=== PATIENT | female | born 1995 | race Caucasian/White ===

== ENCOUNTER 2022-02-03 15:51 | Observation (INO) | payer BC, SELFPAY ==
[2022-02-03] VITALS (12 sets, daily range): BP systolic 114–136; BP diastolic 52–79; PULSE 46–88; RESP 15–28; TEMP 36.7–36.9; O2SAT 99–100; BMI 22.6
--- NOTE | ~2022-02-03 | US_ITS ---
EXAMINATION: US right upper quadrant DATE: 02/03/2022 16:49 INDICATION: Right upper quadrant abdominal pain. TECHNIQUE: Multiple grayscale and Doppler ultrasound images of the abdomen were obtained. COMPARISON: None FINDINGS: The visualized portions of the head and body of the pancreas are normal. The liver demonstr ates focal steatosis adjacent to ligamentum teres. There is normal flow in main portal vein. The gall bladder is normal in size and filled with gallstones. No gallbladder wall thickening. There is a posi tive sonographic Baez sign. The common duct is normal and measures 3 mm. IMPRESSION: 1. Cholelithiasis and positive sonographic Baez sign, but no gallbladder distention or gallbladder wall thickening. These findings are indeterminate for acute cholecystitis. Consider hepatobiliary sci ntigraphy. Reviewed, dictated and finalized at location [facility] IMPRESSION: 1. Cholelithiasis and positive sonographic Baez sign, but no gallbladder dist ention or gallbladder wall thickening. These findings are indeterminate for acu te cholecystitis. Consider hepatobiliary scintigraphy.
[2022-02-03 17:09] LABS: Appearance Urine Slightly Cloudy (Clear); Bilirubin Urine 1+ (Negative); Blood Urine Trace-lysed (Negative); Color Urine Yellow (Yellow); Glucose Urine UA Negative (Negative); Ketones Urine Trace mg/dL (Negative); Leukocyte Esterase Ur Negative LEU/UL (Negative); Nitrate Urine Negative (Negative); Protein Urine Negative (Negative); Specific Grav Ur >= 1.030 (1.001-1.035); Urobilinogen Urine 0.2 mg/dL (<2.0); pH Urine 5.5 (5.0-9.0)
[2022-02-03 17:15] LABS: Bacteria Urine Trace /hpf; Mucus Urine Few /lpf; Squamous Epithelial Cell Urine Many /hpf (Few); WBC Urine 0-3 /hpf
[2022-02-03 17:15] LABS: Basophils Percent Auto 0.8 % (0.2-1.2); Eosinophils Percent Auto 0.4 % (0-4.4); Hematocrit 39.3 % (37.0-47.0); Hemoglobin 13.3 g/dL (12.0-15.0); Immature Granulocyte Absolute 0.01 K/mm3 (0.00-0.031); Immature Granulocyte Percent A 0.2 % (0-0.5); Lymphocytes Absolute Auto 1.62 K/mm3 (0.9-3.2); Mean Corpuscular HGB Conc 33.8 g/dl (32-36); Mean Corpuscular Hemoglobin 28.5 pg (26-34); Mean Corpuscular Volume 84.3 fl (80-100); Mean Platelet Volume 11.5 fl (7.4-10.4); Monocytes Absolute Auto 0.5 K/mm3 (0.1-0.6); Monocytes Percent Auto 9.2 % (2.6-8.5); Neutrophils Absolute Auto 3.1 K/mm3 (1.3-6.7); Neutrophils Percent Auto 58.4 % (45.5-73.1); Platelet Count Result 203 k/mm3 (150-375); Red Blood Count 4.66 M/mm3 (4.2-5.4); Red Cell Distribution Width 12.6 % (11.5-14.5); White Blood Count 5.2 K/mm3 (4.5-10.0)
[2022-02-03 17:26] LABS: Alanine Aminotransferase 13 U/L (6-35); Albumin Level 4.6 g/dL (3.5-5.1); Alkaline Phosphatase 39 U/L (38-126); Anion Gap 11 mmol/L (8-16); Aspartate Amino Transferase 19 U/L (14-36); Bilirubin,Total 0.7 mg/dL (0.2-1.3); Blood Urea Nitrogen 7 mg/dL (7-17); Calcium 9.3 mg/dL (8.4-10.2); Carbon Dioxide 25 mmol/L (22-30); Chloride 103 mmol/L (98-107); Estimated CRCL calculation 93 ml/min; Estimated Glomerular Filt Rate > 60; Glucose 97 mg/dL (65-110); Lipase 37 U/L (23-300); Potassium 3.5 mmol/L (3.4-5.0); Sodium 139 mmol/L (137-145)
[2022-02-03] MEDS: ONDANSETRON INJ 4 MG/2 ML VIAL IV PUSH ×2 (17:41→22:17)
[2022-02-03 17:42] LABS: Add Urine Microscopic? YES
--- NOTE | 2022-02-03 18:18 | ED.NAVMDI ---
HPI - Nausea/Vomiting/Diarrhea General Chief complaint: Nausea/Vomiting/Diarrhea Stated complaint: epigastric pain, nausea Time Seen by Provider: 02/03/22 16:14 History of Present Illness HPI Narrative: Patient is a 26-year-old female who presents ER with epigastric right upper quadrant pain. Reports has been having this intermittently for the last year. More severe over the last day. Associated with sweats and nausea and vomiting. She will occasionally have diarrhea but that is. Radiates from the epigastrium out bilaterally. No fevers or chills or sweats. Originally diagnosed with IBS. Patient used to be on chronic opiate therapy for chronic pain chest chronic regional pain syndrome in her left lower extremity and has a spinal cord stimulator. Unsure if symptoms are associate with eating or drinking. Related Data Allergies Allergy/AdvReac Type Severity Reaction Status Date / Time oxcarbazepine Allergy Unresponsiv Verified 02/03/22 16:03 e Review of Systems Review of Systems: All systems reviewed & are unremarkable except as noted in HPI and below Constitutional: Constitutional: Denies chills, Denies fatigue and Denies fever(s) Cardiovascular: Cardiovascular: Denies chest pain, Denies rapid heart rate and Denies radiating jaw, neck or arm pain Respiratory: Respiratory: Denies cough and Denies dyspnea Gastrointestinal: Gastrointestinal: Reports abdominal pain, Denies constipation, Reports nausea and Reports vomiting Genitourinary: Genitourinary: Denies nocturia and Denies dysuria PMFSH Past Medical History Medical History (Updated 02/03/22 @ 19:37 by Trina Jiang NP) Anxiety CRPS (complex regional pain syndrome type I) Depression Injury of nerve during surgery POTS (postural orthostatic tachycardia syndrome) Tendonitis Surgical History Surgical History (Updated 02/03/22 @ 19:37 by Trina Jiang NP) History of ankle surgery x 2 History of appendectomy Hx of wisdom tooth extraction S/P insertion of spinal cord stimulator Family History Family History (Updated 02/03/22 @ 19:38 by Trina Jiang NP) Mother Seizure Bipolar 1 disorder Father Hypertension Sibling Depression Social History Social History (Updated 02/03/22 @ 19:39 by Trina Jiang NP) Social History: [employer] student Exam Narrative: GENERAL: Uncomfortable-appearing, well-nourished, and in no acute distress. HEAD: Normocephalic, atraumatic. EYES: PERRL and EOMI. ENT: Mucous membranes moist. CHEST: Clear to auscultation. No respiratory distress. HEART: Regular rate and rhythm. Normal peripheral pulses. ABDOMEN: Soft, tender palpation epigastrium right upper quadrant with positive Baez sign, nondistended, normal active bowel sounds. EXTREMITIES: Normal range of motion. No edema. SKIN: Warm, dry, no rash. NEURO: Alert and oriented x3. PSYCH: Normal mood and affect. Course Course Emergency Course: Persistent pain. Likely needs HIDA scan given ultrasound results. Admit for observation to hospital service. Vital Signs Vital signs: Vital Signs Temperature 98.1 F 02/03/22 16:01 Pulse Rate 88 02/03/22 16:01 Respiratory Rate 16 02/03/22 16:01 Blood Pressure 136/79 02/03/22 16:01 Pulse Oximetry 99 02/03/22 16:01 Temperature 98.4 F 02/03/22 19:23 Pulse Rate 61 02/03/22 20:39 Respiratory Rate 15 02/03/22 20:39 Blood Pressure 118/69 02/03/22 20:39 Pulse Oximetry 100 02/03/22 20:39 MDM - Nausea/Vomiting/Diarrhea Lab Data Result diagrams: 02/03/22 17:01 02/03/22 17:01 Labs: Lab Results 02/03/22 02/03/22 02/03/22 Range/Units 16:30 16:30 17:01 WBC 5.2 (4.5-10.0) K/mm3 RBC 4.66 (4.2-5.4) M/mm3 Hgb 13.3 (12.0-15.0) g/dL Hct 39.3 (37.0-47.0) % MCV 84.3 (80-100) fl MCH 28.5 (26-34) pg MCHC 33.8 (32-36) g/dl RDW 12.6 (11.5-14.5) % Plt Count 203 (150-375) k/mm3 MPV 11
[2022-02-03 19:00] LABS: SARS-CoV-2 RNA PCR Negative
[2022-02-03 19:22] LABS: Pregnancy On Board Control Positive; Urine Pregnancy Test Negative
--- NOTE | 2022-02-03 19:22 | PC.NURSE ---
Patient report given to NATHAN Petit. All questions answered and care of patient transferred.
[2022-02-03] MEDS: SODIUM CHLORIDE 0.9% IV 1,000 ML 125 ML IV CONT (19:23)
--- NOTE | 2022-02-03 19:31 | PM.IMHP ---
H&P: HPI History of Present Illness Date/Time: 02/03/22 19:31 Chief Complaint: Nausea vomiting diarrhea Narrative: This is a 26-year-old female patient who has been having problems with her abdomen for the last couple months. The patient stated that she has had scopes and lots of test even cardiac test and have not found anything. The patient came to the emergency room today with complaints of epigastric right upper quadrant pain the patient stated that it starts in the upper epigastric area and goes to her back and radiates to her shoulder. The patient stated that it is so severe that it makes her pass out at times. The patient has no fever chills. Patient was originally diagnosed with irritable bowel syndrome and was placed on Bentyl. The Bentyl seem to work a somewhat. The patient stated that she does not think that her symptoms are associated with eating or drinking. The patient was given Zofran in the emergency room, morphine, IV Tylenol, Toradol, and Bentyl without any relief. However the patient was seeing she did not want any narcotics. Upper quadrant ultrasound was read as the following1. Cholelithiasis and positive sonographic Baez sign, but no gallbladder distention or gallbladder wall thickening. These findings are indeterminate for acute cholecystitis. Consider hepatobiliary scintigraphy. Surgery has been consulted. The patient is being admitted to observation on the date of service of 02/03/2022. Review of Systems Review of Systems: See HPI All systems reviewed & are unremarkable except as noted in HPI and below Constitutional: Constitutional: Reports as per HPI and Reports no additional constitutional complaints Eyes: Eyes: Reports as per HPI and Reports no additional eye complaints ENT: Reports system reviewed and no additional complaints, except as documented and Reports Normal hearing present Cardiovascular: Cardiovascular: Reports no additional cardiovascular complaints Respiratory: Respiratory: Reports no additional respiratory complaints and Reports no additional respiratory complaints Gastrointestinal: Gastrointestinal: Reports as per HPI and Reports no additional gastrointestinal complaints Musculoskeletal: Musculoskeletal: Reports no additional musculoskeletal complaints Integumentary/Breasts: Skin/Breast: Reports system reviewed and no additional complaints, except as docu and Reports as per HPI Neurologic: Reports system reviewed and no additional complaints, except as documented, Reports as per HPI and Reports Normal hearing present Psychiatric: Psychiatric: Reports no additional psychiatric complaints and Reports as per HPI Endocrine: Endocrine: Reports no additional endocrine complaints Hematologic/Lymphatic: Hematologic/Lymphatic: Reports no additional hematologic/lymphatic complaints Allergic/Immunologic: Allergic/Immunologic: Reports no additional allergic/immunologic complaints PMFSH Past Medical History Medical History Anxiety CRPS (complex regional pain syndrome type I) Depression Injury of nerve during surgery POTS (postural orthostatic tachycardia syndrome) Tendonitis Surgical History Surgical History History of ankle surgery x 2 History of appendectomy Hx of wisdom tooth extraction S/P insertion of spinal cord stimulator Family History Family History Mother Seizure Bipolar 1 disorder Father Hypertension Sibling Depression Social History Social History (Updated 02/03/22 @ 21:50 by Trina Jiang NP) Social History: The patient lives with her fiance. 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 She denies any alcohol marijuana or illicit drugs. She does not have a durable power banking attorney for healthcare. She has no children. Code status full code
[2022-02-03] MEDS: DICYCLOMINE HCL INJ 20 MG/2 ML VIAL IM (19:47)
[2022-02-03] MEDS: KETOROLAC 30 MG/ML VIAL (*BKC) IV PUSH (19:47)
[2022-02-03] MEDS: LORazepam (*CRX) 0.5 MG TABLET PO (23:55)
[2022-02-04] VITALS (12 sets, daily range): BP systolic 95–131; BP diastolic 36–77; PULSE 54–93; RESP 12–20; TEMP 36.4–36.9; O2SAT 100; BMI 22.6
[2022-02-04 02:26] LABS: Pregnancy On Board Control Positive; Urine Pregnancy Test Negative
[2022-02-04 05:51] LABS: Lactic Acid Reflex 0.7 mmol/L (0.7-2.0)
[2022-02-04 05:56] LABS: Alanine Aminotransferase 11 U/L (6-35); Alkaline Phosphatase 32 U/L (38-126); Anion Gap 8 mmol/L (8-16); Aspartate Amino Transferase 15 U/L (14-36); Bilirubin,Total 0.8 mg/dL (0.2-1.3); Blood Urea Nitrogen 8 mg/dL (7-17); Calcium 8.1 mg/dL (8.4-10.2); Carbon Dioxide 24 mmol/L (22-30); Chloride 106 mmol/L (98-107); Estimated CRCL calculation 82 ml/min; Estimated Glomerular Filt Rate > 60; Glucose 92 mg/dL (65-110); Lipase 62 U/L (23-300); Magnesium 2.1 mg/dL (1.6-2.3); Potassium 3.5 mmol/L (3.4-5.0); Sodium 138 mmol/L (137-145)
[2022-02-04 06:19] LABS: Basophils Absolute Auto 0.1 K/mm3 (0.0-0.1); Basophils Percent Auto 1.1 % (0.2-1.2); Eosinophils Percent Auto 0.7 % (0-4.4); Hematocrit 36.3 % (37.0-47.0); Immature Granulocyte Absolute 0.01 K/mm3 (0.00-0.031); Immature Granulocyte Percent A 0.2 % (0-0.5); Lymphocytes Absolute Auto 1.94 K/mm3 (0.9-3.2); Lymphocytes Percent Auto 43.4 % (18.3-44.2); Mean Corpuscular HGB Conc 33.1 g/dl (32-36); Mean Corpuscular Hemoglobin 28.6 pg (26-34); Mean Corpuscular Volume 86.6 fl (80-100); Monocytes Absolute Auto 0.5 K/mm3 (0.1-0.6); Monocytes Percent Auto 10.3 % (2.6-8.5); Neutrophils Percent Auto 44.3 % (45.5-73.1); Platelet Count Result 174 k/mm3 (150-375); Red Blood Count 4.19 M/mm3 (4.2-5.4); Red Cell Distribution Width 12.5 % (11.5-14.5); White Blood Count 4.5 K/mm3 (4.5-10.0)
[2022-02-04] MEDS: SODIUM CHLORIDE 0.9% IV 1,000 ML 125 ML IV CONT (06:53)
[2022-02-04] MEDS: ONDANSETRON INJ 4 MG/2 ML VIAL IV PUSH ×2 (06:53→16:06)
[2022-02-04] MEDS: KETOROLAC 30 MG/ML VIAL (*BKC) IV PUSH (09:32)
[2022-02-04] MEDS: PANTOPRAZOLE SODIUM IV 40 MG VIAL IV PUSH (09:32)
[2022-02-04] MEDS: LORazepam (*CRX) 0.5 MG TABLET PO ×2 (09:34→17:55)
--- NOTE | 2022-02-04 10:15 | PM.IMPN ---
Progress Note: A&P Assessment and Plan (1) Cholelithiasis: Code(s): K80.20 - Calculus of gallbladder without cholecystitis without obstruction Status: Acute Assessment and Plan: -surgery has been consulted. -continue with IV fluids. -HIDA scan has been ordered. -the patient stated that she does not want any narcotics. -I have tried Bentyl and Toradol without any affect. She has also had IV Tylenol. -the patient was asking for muscle relaxer however she is allergic to oxcarbamazepine. -liver enzymes are not elevated. Ultrasound of the abdomen shows the following. Cholelithiasis and positive sonographic Baez sign, but no gallbladder distention or gallbladder wall thickening. These findings are indeterminate for acute cholecystitis. Consider hepatobiliary scintigraphy. (2) Anxiety: Code(s): F41.9 - Anxiety disorder, unspecified Status: Acute Assessment and Plan: -p.r.n. Ativan or we may change it to hydroxyzine. (3) Depression: Code(s): F32.A - Depression, unspecified Status: Acute Assessment and Plan: -continue any home medication. Subjective Date/time seen: 02/04/22 10:15 Patient was seen during the morning rounds today. Patient still have right upper quadrant pain. Mild nausea. No vomiting. No shortness of with a chest pain. Mood stable. Review of Systems Review of Systems: All systems reviewed & are unremarkable except as noted in HPI and below (the history and physical exam.) Constitutional: Constitutional: Reports as per HPI and Reports no additional constitutional complaints Eyes: Eyes: Reports as per HPI and Reports no additional eye complaints ENT: Reports system reviewed and no additional complaints, except as documented and Reports Normal hearing present Cardiovascular: Cardiovascular: Reports no additional cardiovascular complaints Respiratory: Respiratory: Reports no additional respiratory complaints and Reports no additional respiratory complaints Gastrointestinal: Gastrointestinal: Reports as per HPI and Reports no additional gastrointestinal complaints Musculoskeletal: Musculoskeletal: Reports no additional musculoskeletal complaints Integumentary/Breasts: Skin/Breast: Reports system reviewed and no additional complaints, except as docu and Reports as per HPI Neurologic: Reports system reviewed and no additional complaints, except as documented, Reports as per HPI and Reports Normal hearing present Psychiatric: Psychiatric: Reports no additional psychiatric complaints and Reports as per HPI Endocrine: Endocrine: Reports no additional endocrine complaints Hematologic/Lymphatic: Hematologic/Lymphatic: Reports no additional hematologic/lymphatic complaints Allergic/Immunologic: Allergic/Immunologic: Reports no additional allergic/immunologic complaints Exam Const: General: cooperative, comfortable, no acute distress, well developed, alert, awake, Physically active, ill appearing, average body habitus and well nourished Nutritional Appearance: average body habitus and well nourished Orientation/consciousness: oriented to person, oriented to place, oriented to time and patient oriented x3 Limitations: no limitations HENMT: Head: normal to inspection, No palpable skull fracture present, normocephalic and atraumatic Ears: hearing grossly normal bilaterally and external ears normal Face/Nose/Sinus: Normal external nose present and Normal nares present Eyes: General: appearance normal, both eyes and all related structures Alignment and Position: alignment normal Periorbital: periorbital findings normal Eyelids: eyelids normal Pupils: Equal, round and reactive pupils present EOM: EOMs intact bilaterally Neck: Neck: normal visual inspection, full ROM, no lymphadenopathy, trachea midline and supple Chest: Chest palpation & inspection: normal inspection of the chest Resp: Effort & Inspection: normal respiratory effort Auscultation: clear
--- NOTE | 2022-02-04 10:55 | PM.CNGS ---
Assessment and Plan Assessment and plan (1) Cholecystitis with cholelithiasis: Code(s): K80.10 - Calculus of gallbladder with chronic cholecystitis without obstruction Status: Acute Assessment and Plan: history, exam, imaging c/w cholecystitis, cholelithiasis, long d/w pt and decision to proceed c urgent cholecystectomy History of Present Illness Consult details Consult date: 02/04/22 Reason for consult: gallstones Requesting physician: Rainer Ibrahim MD Narrative: Pt is a 26 y/o F presenting to ED c/o severe epigastric/RUQ abd pain over last few mos. Pt has had extensive workup, including endoscopy, cardiac tests, that have all been essentially negative. Pt reports pain radiates to chest, shoulder area and back. Pt reports associated bloating, N/V. Review of Systems Constitutional: Constitutional: Reports as per HPI, Denies anorexia, Denies chills, Reports fatigue, Denies fever(s), Denies increased appetite, Reports lethargy, Denies malaise, Reports poor appetite, Denies weakness, Denies weight gain and Denies weight loss Eyes: Eyes: Reports no additional eye complaints ENT: Reports system reviewed and no additional complaints, except as documented Cardiovascular: Cardiovascular: Reports no additional cardiovascular complaints Respiratory: Respiratory: Reports no additional respiratory complaints Gastrointestinal: Gastrointestinal: Reports as per HPI, Reports abdominal pain, Denies belching, Reports bloating, Reports change in stool character, Reports GI cramping, Reports early satiety, Reports heartburn, Denies diarrhea, Reports loose stools, Reports nausea, Reports vomiting and Denies hematemesis Genitourinary: Genitourinary: Reports no additional female genitourinary complaints Musculoskeletal: Musculoskeletal: Reports no additional musculoskeletal complaints Integumentary/Breasts: Skin/Breast: Reports system reviewed and no additional complaints, except as docu Neurologic: Reports system reviewed and no additional complaints, except as documented Psychiatric: Psychiatric: Reports no additional psychiatric complaints Endocrine: Endocrine: Reports no additional endocrine complaints Hematologic/Lymphatic: Hematologic/Lymphatic: Reports no additional hematologic/lymphatic complaints Allergic/Immunologic: Allergic/Immunologic: Reports no additional allergic/immunologic complaints PMFSH Past Medical History Medical History Anxiety CRPS (complex regional pain syndrome type I) Depression Injury of nerve during surgery POTS (postural orthostatic tachycardia syndrome) Tendonitis Surgical History Surgical History History of ankle surgery x 2 History of appendectomy Hx of wisdom tooth extraction S/P insertion of spinal cord stimulator Family History Family History Mother Seizure Bipolar 1 disorder Father Hypertension Sibling Depression Social History Social History Social History: The patient lives with her fiance. 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 She denies any alcohol marijuana or illicit drugs. She does not have a durable power compliance attorney for healthcare. She has no children. Code status full code Smoking status: Current every day smoker Tobacco type: e-cigarettes/vaping Alcohol intake: never Substance use: current Substance use type: marijuana Other substance usage details: daily Lack of Transportation: No Lack of Food: Never True Current Housing: I Do Not Have Housing Concerned About Future Housing: No Difficulty Paying Gas/Electric Bills: No Difficulty Paying for Meds: No Currently Unemployed: No Education: High School Diploma/GED Difficulty w/ Childcare or Family Care:
--- NOTE | 2022-02-04 12:49 | PC.NURSE ---
On 02/04/22, the student, [Chantal Marcus], provided care and completed [facility] documentation on this patient. I have reviewed the student's documentation and agree with the findings.
[2022-02-04] MEDS: KETOROLAC 15 MG/ML VIAL (*BKC) IV PUSH ×2 (14:30→16:32)
[2022-02-04] MEDS: LACTATED RINGERS 1,000 ML 30 ML IV CONT ×2 (14:30→15:55)
--- NOTE | 2022-02-04 14:46 | WPDHPUPDATE1 ---
History and Physical Update Update Date/Time: 02/04/22 14:46 History and Physical has been reviewed, including an updated exam of the patient. There are NO changes in the patient's condition. Risks, benefits, and alternatives have been discussed and questions answered. Patient agrees to proceed with procedure.
--- NOTE | 2022-02-04 14:48 | WPDANESEPPF ---
Anes - Initial Pre Proc Eval Procedure: Operation Date: 02/04/22 15:00 Proposed Procedures p Laparoscopic Cholecystectomy - Daisha Eng MD Date/Time: 02/04/22 14:48 Surgeon: Junaid Ibrahim MD Pre Op Diagnosis: RUQ pain, gallstones Patient Data Age: 26 Gender: F Height: 1.7 m Weight: 65.6 kg Last Vital Signs Temp 36.6 C 02/04/22 05:39 Pulse 54 L 02/04/22 05:39 Resp 18 02/04/22 05:39 BP 95/36 L 02/04/22 05:39 Pulse Ox 100 02/04/22 05:39 O2 Del Method Room Air 02/03/22 22:01 Allergies Allergy/AdvReac Type Severity Reaction Status Date / Time oxcarbazepine Allergy Unresponsiv Verified 02/03/22 16:03 e Home Medications Medication Instructions Recorded Confirmed Type acetaminophen 325 mg capsule 1,000 mg PO Q6H PRN Pain (Scale 02/03/22 02/03/22 History (Tylenol) Score 1-3) fexofenadine 30 mg tablet 30 mg PO DAILY PRN Sinus Symptoms 02/03/22 02/03/22 History hyoscyamine sulfate 0.125 mg tablet 0.125 mg PO Q4H PRN Spasms 02/03/22 02/03/22 History Laboratory Tests 02/03/22 02/03/22 02/03/22 16:30 16:30 17:01 WBC 5.2 K/mm3 K/mm3 (4.5-10.0) RBC 4.66 M/mm3 M/mm3 (4.2-5.4) Hgb 13.3 g/dL g/dL (12.0-15.0) Hct 39.3 % % (37.0-47.0) MCV 84.3 fl fl (80-100) MCH 28.5 pg pg (26-34) MCHC 33.8 g/dl g/dl (32-36) RDW 12.6 % % (11.5-14.5) Plt Count 203 k/mm3 k/mm3 (150-375) MPV 11.5 fl H fl (7.4-10.4) Immature Gran % (Auto) 0.2 % % (0-0.5) Neut % (Auto) 58.4 % % (45.5-73.1) Lymph % (Auto) 31.0 % % (18.3-44.2) Spink % (Auto) 9.2 % H % (2.6-8.5) Eos % (Auto) 0.4 % % (0-4.4) Baso % (Auto) 0.8 % % (0.2-1.2) Lymph # (Auto) 1.62 K/mm3 K/mm3 (0.9-3.2) Spink # (Auto) 0.5 K/mm3 K/mm3 (0.1-0.6) Eos # (Auto) 0.0 K/mm3 K/mm3 (0-0.3) Baso # (Auto) 0.0 K/mm3 K/mm3 (0.0-0.1) Abs Immat Gran (auto) 0.01 K/mm3 K/mm3 (0.00-0.031) Absolute Neuts (auto) 3.1 K/mm3 K/mm3 (1.3-6.7) Absolute Nucleated RBC 0.0 K/mm3 K/mm3 (0.0-0.012) Nucleated RBC % 0.0 % % (0.0-0.2) Sodium Potassium Chloride Carbon Dioxide Anion Gap BUN Creatinine Estim Creat Clear Calc Estimated GFR Glucose Lactic Acid Calcium Magnesium Total Bilirubin AST ALT Alkaline Phosphatase Total Protein Albumin Lipase TSH (Reflex) Urine Color Yellow (Yellow) Urine Appearance Slightly cloudy (Clear) Urine pH 5.5 (5.0-9.0) Ur Specific [place] >= 1.030 (1.001-1.035) Urine Protein Negative mg/dL mg/dL (Negative) Urine Glucose (UA) Negative mg/dL mg/dL (Negative) Urine Ketones Trace mg/dL mg/dL (Negative) Ur Blood (Man) Trace-lysed (Negative) Urine Nitrate Negative (Negative) Urine Bilirubin 1+ H (Negative) Urine Urobilinogen 0.2 mg/dL mg/dL (<2.0) Leukocyte Esterase Rfl Negative LONI/UL LONI/UL (Negative) Urine RBC 3-5 /hpf H /hpf (0-2) Urine WBC 0-3 /hpf /hpf Ur Squamous Epith Cells Many /hpf H /hpf (Few) Urine Bacteria Trace /hpf /hpf Urine Mucus Few /lpf H /lpf Urine Test Negative SARS-CoV-2 RNA (RT-PCR) 02/03/22 02/03/22 02/04/22 17:01 18:13 02:14 WBC RBC Hgb Hct MCV MCH MCHC RDW Plt Count MPV Immature Gran % (Auto) Neut % (Aut
[2022-02-04] MEDS: ceFAZolin 2 GM/D5W 50 ML 2 GM/50 ML BAG IVPB (14:54)
[2022-02-04] MEDS: BUPIVACAINE/EPINEPHRINE 0.25% 50 ML VIAL 30 ML INFILTRATE (15:44)
--- NOTE | 2022-02-04 15:49 | W.PM.PROC2 ---
Procedure Note - Detailed Date of Procedure 02/04/22 Pre-op Diagnosis Acute cholecystitis, cholelithiasis Post-op Diagnosis Same Procedure Performed Laparoscopic cholecystectomy Surgeon Daisha nEg MD Anesthesia General Indications 26-year-old female presenting with severe right upper quadrant, epigastric abdominal pain associated with nausea and bloating. Workup, including imaging, significant for cholecystitis, cholelithiasis. Findings Cholecystitis with cholelithiasis Description of Procedure The patient was taken to the operating room placed in the supine position. After adequate induction of general anesthesia, the patient was prepped and draped in normal sterile fashion. A time-out was then performed to verify the patient's identity as well as the procedure being performed. I then made a 5 mm incision in the infraumbilical region. Through this, a Veress needle was placed into the peritoneal cavity and CO2 gas was then insufflated. After adequate pneumoperitoneum was achieved, the Veress needle was removed and a 5 mm optiview trocar was placed through this incision under direct visualization. I then placed the laparoscope through this trocar site and under direct visualization placed a further 12 mm subxiphoid port as well as 2 additional 5 mm ports in the right upper abdomen. The gallbladder was then identified and was noted to be inflamed, distended, and full of gallstones. I was able to place a grasper at the dome of the gallbladder and this was retracted anterior and cephalad up over the liver. A 2nd retractor was then placed at the infundibulum and retracted laterally, this allowed visualization of the triangle of Calot. I then was able to visualize the cystic duct in its entirety from its proximal insertion into the gallbladder, to its distal junction with the common hepatic/common bile duct junction. At this point, I carefully skeletonized the proximal cystic duct with the [place] dissector. I then clipped and transected the proximal cystic duct. Next I visualized the cystic artery. Again the artery was skeletonized, clipped, and transected. I then used the Bovie cautery to take down the peritoneal attachments of the gallbladder off the liver bed. This was somewhat difficult given the amount of inflammation in the posterior space. Once the gallbladder specimen was completely detached, an endo-pouch was placed through the 12 mm port site. I then placed the gallbladder specimen into the Endo pouch and removed the endo-pouch from the 12 mm port site. The specimen will now be sent to pathology for further review. I then copiously irrigated the right upper quadrant. Some mild oozing was noted in the liver bed and this was controlled with the bovie cautery. Hemostasis was noted in the liver bed, the clips were noted to be in good position on both the cystic duct stump and the cystic artery stump. No other pathology was noted in the right upper quadrant. I then moved the laparoscope to the subxiphoid port. No iatrogenic injury or other pathology was noted in the lower abdomen. I then closed the 12 mm trocar site under direct visualization using the Jamal cone and 0 Vicryl suture. At this point, the abdomen was desufflated and all ports removed. All port sites were then closed with 4.O Monocryl subcuticular sutures. Dermabond was placed on each incision. The patient tolerated the procedure well, was extubated in the operating room postoperative and will be transferred to the recovery room in stable condition Estimated Blood Loss 10 Drains No Packing No Pathology Yes Complications No immediate complications Condition Stable Disposition PACU [facility] Billing Surgery - Charge Forward: Surgery Billing
--- NOTE | 2022-02-04 16:27 | SUR.PHASEI ---
1625- Dr. Larsen at [facility] in PACU. Pt complaining of pain in ABD. Dr. Larsen gave pt Ketamine 25 mg IVP.
--- NOTE | 2022-02-04 16:36 | SUR.PHASEI ---
5316- Dr. Larsen at bedside to assess pain level. Dr. Larsen gave pt Ketamine 25 mg IVP.
[2022-02-04] MEDS: LORazepam INJ (*CRX) 2 MG/ML VIAL 1 MG IV PUSH (17:25)
--- NOTE | 2022-02-04 17:27 | SUR.PHASEI ---
1716- Dr. Larsen at bedside to assess pain. pt given Ketamine 25 mg IVP
--- NOTE | 2022-02-04 19:50 | PC.NURSE ---
Pt requested to try regular diet to possibly get discharged tonight. Pt given food options and was educated on which to eat first. Pt verbalized understanding and will be attempting to tolerate regular diet.
--- NOTE | 2022-02-04 21:05 | PC.NURSE ---
Pt tolerated regular diet and was okay to DC from surgeries stand point. Hospitalist did not approve discharge and pt decided to leave AMA. Post op instructions given to pt. IV removed. Family members escorted pt off the floor.
--- NOTE | 2022-02-09 13:20 | PM.DS ---
DS: Admitting Diagnosis Discharge Date 02/04/22 Admitting Diagnosis cholelithiasis DS: Discharge Diagnosis Discharge Diagnosis (1) Cholelithiasis: Code(s): K80.20 - Calculus of gallbladder without cholecystitis without obstruction Status: Acute Assessment and Plan: -surgery has been consulted. -continue with IV fluids. -HIDA scan has been ordered. -the patient stated that she does not want any narcotics. -I have tried Bentyl and Toradol without any affect. She has also had IV Tylenol. -the patient was asking for muscle relaxer however she is allergic to oxcarbamazepine. -liver enzymes are not elevated. Ultrasound of the abdomen shows the following. Cholelithiasis and positive sonographic Baez sign, but no gallbladder distention or gallbladder wall thickening. These findings are indeterminate for acute cholecystitis. Consider hepatobiliary scintigraphy. (2) Anxiety: Code(s): F41.9 - Anxiety disorder, unspecified Status: Acute Assessment and Plan: -p.r.n. Ativan or we may change it to hydroxyzine. (3) Depression: Code(s): F32.A - Depression, unspecified Status: Acute Assessment and Plan: -continue any home medication. DS: Summary Hospital Course Reason for hospitalization: cholelithis Hospital Course: Patient was admitted with abdominal pain, found to have cholelithiasis. Patient left [facility] medical adive. All pros and cons including the risk of explained to pt. Time Spent with Patient Time attestation: Total time spent providing and/or coordinating discharge services: Exam Const: General: cooperative, comfortable, no acute distress, well developed, alert, awake, Physically active, ill appearing, average body habitus and well nourished Nutritional Appearance: average body habitus and well nourished Orientation/consciousness: oriented to person, oriented to place, oriented to time and patient oriented x3 Limitations: no limitations HENMT: Head: normal to inspection, No palpable skull fracture present, normocephalic and atraumatic Ears: hearing grossly normal bilaterally and external ears normal Face/Nose/Sinus: Normal external nose present and Normal nares present Eyes: General: appearance normal, both eyes and all related structures Alignment and Position: alignment normal Periorbital: periorbital findings normal Eyelids: eyelids normal Pupils: Equal, round and reactive pupils present EOM: EOMs intact bilaterally Neck: Neck: normal visual inspection, full ROM, no lymphadenopathy, trachea midline and supple Chest: Chest palpation & inspection: normal inspection of the chest Resp: Effort & Inspection: normal respiratory effort Auscultation: clear to auscultation bilaterally Cardio: Palpation: normal PMI Rate: regular rate Rhythm: regular rhythm Heart sounds: S1 normal heart sound present and S2 normal heart sound present Peripheral pulses: Peripheral pulses 2+ throughout GI: Inspection: normal to inspection Auscultation: normal bowel sounds Rectal Exam: deferred Other: Baez sign positive to right upper quadrant. Back/Spine/Pelvis: Cervical Spine: cervical ROM normal Skin: General skin exam: normal color Lesions: no lesions Rashes: no rashes Trauma: no lacerations or abrasions Wounds: no wounds Hair: normal Nails: normal Neuro: General: oriented to person, oriented to place, oriented to time and patient oriented x3 Cranial nerves: Yes Equal, round and reactive pupils present and Yes Normal hearing present Cognition (Neuro): normal cognition Speech: normal speech Gait exam (Neuro): Normal gait present Motor exam (neuro): 5/5 motor strength present throughout Sensory Exam: normal sensation Extrem: General: normal to inspection Right upper extremity: normal to inspection and shoulder/upper arm Left upper extremity: normal to inspection and shoulder/upper arm Right lower extremity: normal to inspection Left lower extremity: n
== END 2022-02-04 21:10 | disposition home or self-care (01) ==
LOC: ANHED 18:21 → ANH2MED 22:50
PROVIDERS: Nurse Practitioner; Surgery; Admitting Provider Internal Medicine; Emergency Provider Emergency Medicine; Visit Provider Internal Medicine
PROC: 0FT44ZZ Resection of Gallbladder, Percutaneous Endoscopic Approach (ICD-10-PCS; CPT 47562; principal; 2022-02-04 15:00)
DX: K80.12 Calculus of gallbladder with acute and chronic cholecystitis without obstruction (principal); F41.9 Anxiety disorder, unspecified; F32.A Depression, unspecified; G90.50 Complex regional pain syndrome I, unspecified; G90.A Postural orthostatic tachycardia syndrome [POTS]; Z96.82 Presence of neurostimulator; F12.90 Cannabis use, unspecified, uncomplicated; F17.290 Nicotine dependence, other tobacco product, uncomplicated; Z20.822 Contact with and (suspected) exposure to COVID-19; Z79.1 Long term (current) use of non-steroidal anti-inflammatories (NSAID); Z79.899 Other long term (current) drug therapy; Z82.49 Family history of ischemic heart disease and other diseases of the circulatory system; Z81.8 Family history of other mental and behavioral disorders
CPT/HCPCS: 47562; 36415; 76705; 80053; 81001; 81025; 83605; 83690; 83735; 84443; 85025; 88304; 96361; 96365; 96372; 96375; 96376; 99285; A9270; C9113; G0378; J0131; J0500; J0690; J1100; J1885; J2060; J2250; J2405; J2704; J2710; J3010; J7030; J7120; U0003; U0005

== ENCOUNTER 2024-01-16 10:31 | Emergency (ER) | payer OTHER, SELFPAY ==
--- NOTE | ~2024-01-16 | US_ITS ---
US right upper quadrant INDICATION: Right upper quadrant pain. Transaminitis. PROCEDURE: Realtime right upper abdominal ultrasound. COMPARISON: No prior studies for comparison. FINDINGS: The pancreas is normal without focal mass or pancreatic ductal dilation. Liver echotexture is normal without focal mass or intrahepatic biliary dilatation. There is normal directional flow i n the portal vein. Gallbladder is surgically absent. Common bile duct measures 4 mm. IMPRESSION: 1: Unremarkable limited abdominal ultrasound. Reviewed, dictated and finalized at location B.
--- NOTE | ~2024-01-16 | CT_ITS ---
EXAMINATION: CT abdomen pelvis w con DATE: 01/16/2024 11:54 INDICATION: Right upper quadrant abdominal pain. Abnormal liver function tests. TECHNIQUE: Computed tomography (CT) of the abdomen and pelvis was performed with 100 mL Omnipaque 350 intravenous contrast. Automated exposure control and iterative reconstruction technique were employe d. The dose-length product was 409.46 mGy-cm. COMPARISON: Abdomen ultrasound 02/03/2022 FINDINGS: The visualized portions of the lung bases are clear without pneumonia or pleural effusion. The heart size is normal. No pericardial effusion. There is mild pectus excavatum. There is periporta l edema in the liver. The spleen is normal. There are changes of cystectomy. The pancreas, adrenal gl ands, and kidneys are normal. There is an intrauterine device in expected position. There are no dila corey loops of bowel. The appendix is not visualized. There are no pathologically enlarged lymph nodes. There is no free intraperitoneal fluid. There are small radiopaque foreign bodies in the central spi nal canal. There is mild thoracic and lumbar spondylosis. IMPRESSION: 1. Periportal edema in the liver. Reviewed, dictated and finalized at location A.
[2024-01-16 10:34] VITALS: BP 130/78; PULSE 83; RESP 16; O2SAT 100
--- NOTE | 2024-01-16 10:56 | ED.ABDPAIN ---
HPI - Abdominal Pain General Chief Complaint: Abdominal Pain Stated Complaint: abdominal pain Time Seen by Provider: 01/16/24 10:34 Source: patient Mode of arrival: ambulatory Limitations: no limitations History of Present Illness HPI narrative: This is a 28-year-old female that presents to the emergency department for right upper quadrant abdominal pain. Reports she is having pain similar to when she needed to have her gallbladder out. Reports some diarrhea yesterday. Has had vomiting as well. Reports abdominal bloating. Denies fevers or dysuria. Related Data Home Medications Medication Instructions Recorded Confirmed acetaminophen 325 mg capsule 1,000 mg PO Q6H PRN Pain (Scale 02/03/22 02/03/22 (Tylenol) Score 1-3) fexofenadine 30 mg tablet 30 mg PO DAILY PRN Sinus Symptoms 02/03/22 02/03/22 hyoscyamine sulfate 0.125 mg tablet 0.125 mg PO Q4H PRN Spasms 02/03/22 02/03/22 Allergies Allergy/AdvReac Type Severity Reaction Status Date / Time oxcarbazepine Allergy Unresponsiv Verified 01/16/24 10:32 e Review of Systems Review of Systems: CONSTITUTIONAL: Denies fever GASTROINTESTINAL: Reports abdominal pain, nausea, vomiting, and diarrhea. GENITOURINARY: Denies dysuria or hematuria. All systems reviewed & are unremarkable except as noted in HPI and below PMFSH Past Medical History Medical History Anxiety CRPS (complex regional pain syndrome type I) Depression Injury of nerve during surgery POTS (postural orthostatic tachycardia syndrome) Tendonitis Surgical History Surgical History History of ankle surgery x 2 History of appendectomy Hx of wisdom tooth extraction S/P insertion of spinal cord stimulator Family History Family History Mother Seizure Bipolar 1 disorder Father Hypertension Sibling Depression Social History Social History Social History: The patient lives with her fiance. 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 She denies any alcohol marijuana or illicit drugs. She does not have a durable power state attorney for healthcare. She has no children. Code status full code Smoking status: Current every day smoker Tobacco type: e-cigarettes/vaping Alcohol intake: never Substance use: current Substance use type: marijuana Other substance usage details: daily Lack of Transportation: No Lack of Food: Never True Current Housing: I Do Not Have Housing Concerned About Future Housing: No Difficulty Paying Gas/Electric Bills: No Difficulty Paying for Meds: No Currently Unemployed: No Education: High School Diploma/GED Difficulty w/ Childcare or Family Care: No Spiritual care concerns: No Exam Narrative: GENERAL: Well-appearing, well-nourished, and in no acute distress. HEAD: Normocephalic, atraumatic. EYES: EOMI. CHEST: Clear to auscultation. No respiratory distress. No wheezes rales or rhonchi HEART: Regular rate and rhythm. No murmur heard. Normal peripheral pulses. ABDOMEN: Soft, nondistended, normal active bowel sounds. Tender to palpation in the right upper quadrant, without guarding EXTREMITIES: Normal range of motion. No edema. SKIN: Warm, dry, no rash. NEURO: No focal deficits. Alert and oriented x3. PSYCH: Normal mood and affect Course Course Emergency Course: Patient updated on her workup. Offered admission versus further outpatient evaluation. She would like to follow up outpatient Consultations Consultation #1: Spoke with Dr. Ramirez about patient and workup who is agreeable to either further inpatient management versus outpatient follow up Date: 01/16/24 Vital Signs Vital signs: Vital Signs Pulse Rate 83 01/16/24 10:34 Respiratory Rate 16
[2024-01-16] MEDS: SODIUM CHLORIDE 0.9% IV 1,000 ML 999 ML IV CONT (10:58)
[2024-01-16] MEDS: ONDANSETRON INJ 4 MG/2 ML VIAL IV PUSH (10:59)
[2024-01-16 11:02] LABS: Add Urine Microscopic? NO; Appearance Urine Clear (Clear); Bilirubin Urine Negative (Negative); Blood Urine Negative (Negative); Color Urine Yellow (Yellow); Glucose Urine UA Negative (Negative); Ketones Urine Negative (Negative); Leukocyte Esterase Ur Negative LEU/UL (Negative); Nitrate Urine Negative (Negative); Protein Urine Negative (Negative); Specific Grav Ur 1.016 (1.001-1.035); Urobilinogen Urine 0.2 mg/dL (<2.0)
[2024-01-16 11:04] LABS: BEDSIDEPREGUCG Negative (Negative)
[2024-01-16 11:09] LABS: Basophils Absolute Auto 0.1 K/mm3 (0.0-0.1); Eosinophils Percent Auto 0.6 % (0-4.4); Hematocrit 38.6 % (37.0-47.0); Hemoglobin 12.6 g/dL (12.0-15.0); Immature Granulocyte Absolute 0.01 K/mm3 (0.00-0.031); Immature Granulocyte Percent A 0.2 % (0-0.5); Lymphocytes Absolute Auto 1.13 K/mm3 (0.9-3.2); Lymphocytes Percent Auto 22.9 % (18.3-44.2); Mean Corpuscular HGB Conc 32.6 g/dl (32-36); Mean Corpuscular Hemoglobin 29.6 pg (26-34); Mean Corpuscular Volume 90.6 fl (80-100); Mean Platelet Volume 10.1 fl (7.4-10.4); Monocytes Absolute Auto 0.6 K/mm3 (0.1-0.6); Neutrophils Absolute Auto 3.1 K/mm3 (1.3-6.7); Neutrophils Percent Auto 62.3 % (45.5-73.1); Platelet Count Result 196 k/mm3 (150-375); Red Blood Count 4.26 M/mm3 (4.2-5.4); Red Cell Distribution Width 12.5 % (11.5-14.5); White Blood Count 4.9 K/mm3 (4.5-10.0)
[2024-01-16 11:18] LABS: Alanine Aminotransferase 174 U/L (6-35); Albumin Level 4.4 g/dL (3.5-5.1); Alkaline Phosphatase 38 U/L (38-126); Anion Gap 6 mmol/L (4-12); Aspartate Amino Transferase 194 U/L (14-36); Bilirubin,Total 0.4 mg/dL (0.2-1.3); Blood Urea Nitrogen 13 mg/dL (7-17); Calcium 9.1 mg/dL (8.4-10.2); Carbon Dioxide 28 mmol/L (22-30); Chloride 103 mmol/L (98-107); Estimated CRCL calculation 101 ml/min; Estimated Glomerular Filt Rate > 60; Glucose 87 mg/dL (65-110); Lipase 51 U/L (23-300); Potassium 4.2 mmol/L (3.4-5.0); Sodium 137 mmol/L (137-145)
[2024-01-16 11:37] LABS: Influenza A QL RT-PCR Negative (Negative); Influenza B QL RT-PCR Negative (Negative); RSV RNA, RT-PCR Negative (Negative); SARS-CoV-2 RNA PCR Negative (Negative)
[2024-01-16] MEDS: KETOROLAC 15 MG/ML VIAL (*BKC) IV PUSH (12:35)
[2024-01-16] MEDS: diphenhydrAMINE HCl INJ 50 MG/ML VIAL 25 MG IV PUSH (13:18)
[2024-01-16] MEDS: METOCLOPRAMIDE HCL INJ 10 MG/2 ML VIAL IV PUSH (13:18)
[2024-01-16 13:21] VITALS: BP 126/76; PULSE 79; RESP 17; O2SAT 100
[2024-01-16 13:31] VITALS: TEMP 36.8
[2024-01-16 13:35] VITALS: BP 130/80; PULSE 81; RESP 18; TEMP 36.8; O2SAT 98
[2024-01-16 13:39] LABS: Hepatitis B Surface Antigen Negative (Negative)
[2024-01-16 13:44] LABS: HAV RESULT Negative (Negative); Hepatitis B Core IgM Result Negative (Negative)
[2024-01-16 13:56] LABS: Hepatitis C Virus Antibody Negative (Negative)
== END 2024-01-16 13:36 | disposition home or self-care (01) ==
PROVIDERS: Emergency Provider Physician Assistant; PCP Nurse Practitioner Family
DX: R10.11 Right upper quadrant pain (principal); Z20.822 Contact with and (suspected) exposure to COVID-19; G90.A Postural orthostatic tachycardia syndrome [POTS]; F17.290 Nicotine dependence, other tobacco product, uncomplicated; Z96.82 Presence of neurostimulator
CPT/HCPCS: 36415; 74177; 76705; 80053; 80074; 81003; 81025; 83690; 85025; 87637; 96361; 96374; 96375; 99284; J1200; J1885; J2405; J2765; J7030; Q9967

== ENCOUNTER 2024-01-18 16:20 | Outpatient (CLI) | payer OTHER, SELFPAY ==
[2024-01-18 17:00] LABS: Alanine Aminotransferase 72 U/L (6-35); Albumin Level 4.9 g/dL (3.5-5.1); Alkaline Phosphatase 43 U/L (38-126); Aspartate Amino Transferase 32 U/L (14-36); Bilirubin,Total 0.5 mg/dL (0.2-1.3)
[2024-01-18 17:08] LABS: Immunoglobulin G 783 mg/dL (700-1600)
[2024-01-18 17:44] LABS: Iron 112 ug/dL (37-170)
[2024-01-18 17:53] LABS: Percent Iron Saturation 33 % (20-50)
[2024-01-23 01:44] LABS: GGT 28 U/L (3-40)
[2024-01-23 02:33] LABS: Ceruloplasmin 15 mg/dL (14-48)
[2024-01-23 05:49] LABS: Actin Antibody (IgG) <20 U (<20)
[2024-01-23 21:14] LABS: LKM 1 Antibody <=20.0 U (<=20.0)
== END 2024-01-18 16:21 | disposition home or self-care (01) ==
LOC: ANHLAB 16:22
PROVIDERS: PCP Nurse Practitioner Family; Visit Provider Nurse Practitioner
DX: K74.60 Unspecified cirrhosis of liver (principal); R79.89 Other specified abnormal findings of blood chemistry; R10.10 Upper abdominal pain, unspecified
CPT/HCPCS: 36415; 80076; 82104; 82390; 82784; 82977; 83520; 83540; 83550; 84443; 86038; 86039; 86364; 86376

== ENCOUNTER 2024-02-14 06:59 | Day surgery (SDC) | payer OTHER, SELFPAY ==
[2024-02-01 10:05] VITALS: BMI 26.6
[2024-02-07 10:29] VITALS: BMI 26.6
[2024-02-14 07:48] VITALS: BP 109/71; PULSE 93; RESP 16; TEMP 36.9; O2SAT 99
[2024-02-14] MEDS: LACTATED RINGERS 1,000 ML 150 ML IV CONT (08:03)
--- NOTE | 2024-02-14 08:23 | WPDHPUPDATE1 ---
History and Physical Update Update Date/Time: 02/14/24 08:23 Patient with recurrent episodes of right upper quadrant pain. She has a history of cholecystectomy with gallstones several years ago. Symptoms are very similar to that. Currently cannot have MRCP because of metal residual from pain pump. This is scheduled be removed in March. I suggest either MRCP be performed after metal is removed from her back, or ERCP be considered. EGD to be done today to exclude ulcer and other upper GI sources of pain. History and Physical has been reviewed, including an updated exam of the patient. There are NO changes in the patient's condition. Risks, benefits, and alternatives have been discussed and questions answered. Patient agrees to proceed with procedure.
--- NOTE | 2024-02-14 08:24 | WPDANESEPPF ---
Anes - Initial Pre Proc Eval Procedure: Operation Date: 02/14/24 09:00 Proposed Procedures p Esophagogastroduodenoscopy - Angel Rubio MD Date/Time: 02/14/24 08:24 Surgeon: Angel Rubio MD Pre Op Diagnosis: R10.10 Upper Abdominal Patient Data Age: 28 Gender: F Height: 1.7 m Weight: 77.95 kg Last Vital Signs Temp 36.9 C 02/14/24 07:48 Pulse 93 02/14/24 07:48 Resp 16 02/14/24 07:48 BP 109/71 02/14/24 07:48 Pulse Ox 99 02/14/24 07:48 O2 Del Method Room Air 02/14/24 07:48 Allergies Allergy/AdvReac Type Severity Reaction Status Date / Time tree nut Allergy Severe Anaphylaxis Verified 02/14/24 07:44 oxcarbazepine Allergy Unresponsiv Verified 02/14/24 07:44 e adhesive tape AdvReac Rash Verified 02/14/24 07:44 Home Medications Medication Instructions Recorded Confirmed Type atomoxetine 40 mg capsule 40 mg PO DAILY 01/18/24 02/14/24 History (Strattera) fluoxetine 40 mg capsule (Prozac) 40 mg PO BID 01/18/24 02/14/24 History methylphenidate HCl 10 mg tablet 10 mg PO DAILY 01/18/24 02/14/24 History (Ritalin) omeprazole 40 mg capsule,delayed 40 mg PO BID #60 caps 01/18/24 02/14/24 Rx release sodium chloride-potassium chloride 1 tablet PO BID-TID 01/18/24 02/14/24 History 287 mg-180 mg-15 mg tablet Patient hx anesthesia problems: none Family hx anesthesia problems: none Results Review: All pre-operative results and documents have been reviewed as part of the pre-operative evaluation. [facility] Past Medical History Medical History Anxiety CRPS (complex regional pain syndrome type I) Depression Injury of nerve during surgery POTS (postural orthostatic tachycardia syndrome) Tendonitis Surgical History Surgical History History of ankle surgery x 2 History of appendectomy Hx of wisdom tooth extraction S/P insertion of spinal cord stimulator Family History Family History Mother Seizure Bipolar 1 disorder Father Hypertension Sibling Depression Social History Social History Social History: The patient lives with her fiance. 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 She denies any alcohol marijuana or illicit drugs. She does not have a durable power manager of enterprise for healthcare. She has no children. Code status full code Smoking status: Smoker, status unknown Tobacco type: e-cigarettes/vaping Alcohol intake: unknown Substance use: current Substance use type: marijuana Other substance usage details: daily Lack of Transportation: No Lack of Food: Never True Current Housing: I Do Not Have Housing Concerned About Future Housing: No Difficulty Paying Gas/Electric Bills: No Difficulty Paying for Meds: No Currently Unemployed: No Education: High School Diploma/GED Difficulty w/ Childcare or Family Care: No Living arrangements: with family Spiritual care concerns: No Anes - Eval Final PreProcedure Day of Procedure 02/14/24 08:24 Patient weight: overweight Heart: regular rate and rhythm Lungs: clear to auscultation Airway: Mallampati scale class II Neurological: alert and oriented Last oral intake: >/= 8 hours ASA classification: II Emergent: no Anesthetic plan: proceed Anesthesia type and monitoring: general GIVS and standard monitoring Results Review: All pre-operative results and documents have been reviewed as part of the pre-operative evaluation. Informed Consent: The patient's anesthetic plan and its attendant risks and benefits were discussed with the patient/family/POA. Questions were solicited and answers provided to the satisfaction of the patient/family/POA.
[2024-02-14 09:05] VITALS: BP 108/66; PULSE 66; RESP 14; O2SAT 100
[2024-02-14 09:15] VITALS: BP 108/69; PULSE 60; RESP 14; O2SAT 100
[2024-02-14 09:25] VITALS: BP 112/69; PULSE 72; RESP 16; O2SAT 100
--- NOTE | 2024-02-14 09:43 | WPDANESPN ---
Anes - Prog Note Post-Op Date/Time: 02/14/24 09:43 Cardiovascular status: normal Respiratory status: normal Airway patency: baseline Mental status: baseline Post-Op hydration status: normal Vital Signs: Last Vital Signs Temp 36.9 C 02/14/24 07:48 Pulse 72 02/14/24 09:25 Resp 16 02/14/24 09:25 BP 112/69 02/14/24 09:25 Pulse Ox 100 02/14/24 09:25 O2 Del Method Room Air 02/14/24 09:25 Pain Score (VAS): 0/10 I/O: Intake & Output 02/13/24 02/14/24 02/14/24 23:59 07:59 15:59 Intake Total 500 Balance 500 Patient Feedback: Patient satisfied with anesthetic care.
== END 2024-02-14 09:40 | disposition home or self-care (01) ==
PROVIDERS: PCP Nurse Practitioner Family; Visit Provider Internal Medicine Gastroenterology
PROC: 0DJ08ZZ Inspection of Upper Intestinal Tract, Via Natural or Artificial Opening Endoscopic (ICD-10-PCS; CPT 43235; principal; 2024-02-14 09:00)
DX: R10.11 Right upper quadrant pain (principal)
CPT/HCPCS: 43239

== ENCOUNTER 2024-04-23 09:55 | Outpatient (CLI) | payer OTHER, SELFPAY ==
[2024-04-23 10:25] LABS: Hemoglobin 13.4 g/dL (12.0-15.0); Mean Corpuscular HGB Conc 33.5 g/dl (32-36); Mean Corpuscular Hemoglobin 29.8 pg (26-34); Mean Corpuscular Volume 89.1 fl (80-100); Mean Platelet Volume 10.3 fl (7.4-10.4); Platelet Count Result 230 k/mm3 (150-375); Red Blood Count 4.49 M/mm3 (4.2-5.4); Red Cell Distribution Width 12.3 % (11.5-14.5); White Blood Count 4.4 K/mm3 (4.5-10.0)
--- OUTSIDE RECORDS SUMMARY | 2024-04-23 10:39 | XMS_ITS | Encounter Summary ---
Author Organization [facility] Healthcare Address [address] [place] [address] Care Team Providers Care Cd Mixer Name Role Phone Riana Weaver MD Primary Care Provider Rose Mary Manuel RN Unavailable Unavailab Shelley Sullivan MD Unavailable Melquiades Parada MD Unavailable Joy Lara MD Primary Care Provider Chloe Sheldon PT Unavailable [phone] Pete Rivera MD Unavailable [phone] Bettina Alexander X RAY INSPECTOR Unavailable Berenice Sher NP Primary Care Provider [phone] Encounter Details Date Type Department Care Team (Late st Contact Info) Description 09/12/2018 Telephone [facility] [address] [facility] [address] [place] [address] Melquiades Parada MD [address] [facility] [phone] [place] [address] Social History Tobacco Use Types Packs/Day Years Used Date Smoking Tobacco: Every Day E-cigarettes Smokeless Tobacco: Current Comments:vapor cigarettes Alcohol Use Standard Drinks/Week Comments Yes 1 (1 standard drink = 0.6 oz pur e alcohol) 1 glass of wine once a month Comments No Sex and Gender Information Value Date Recorded Sex Assigned at Female 06/25/2018 8:44 PM CDT Legal Sex Female 4:21 PM HEALTH DIRECTOR Gender Identity Female 10/27/2023 9:19 AM CDT Sexual Orientation Straight 06/25/2018 8: 44 PM CDT documented as of this encounter Plan of Treatment Not on file documented as of this encounter Goals Goal Patient Goal Type Associated Problems Recent Progress Patient-Stated? Author CCM Chronic Pain Care Plan Chronic Care Management Worsening( 10:10 AM HEALTH DIRECTOR) No Merna Rubio, RN Note: Problem: Chronic Pain Goals: 1. Minimize further functional decline 2. Maximize quality of life 3. Control pain Strategies: - Activity/exercise program recommendation - Conservative stepwise pain medicine strategy with multi-disciplinary approach - Recommend healthy lifestyle strategies and compensatory methods as needed documented as of this encounter Visit Diagnoses Not on filedocumented in this encounter Additional Health Concerns Infection Onset Date Last Indicated Resolved Time COVID: Suspected 06/23/2020 06/23/2020 06/24/2020 8:58 AM CDT COVID: Suspected 11/19/2021 11/19/2021 11/19/2021 12:25 PM CDT documented as of this encounter Care Teams Cd Mixer Relationship Specialty [place] [address] [facility] [address] [place] [address] PCP - General 06/25/16 03/05/20 Joy Lara MD [address] [facility] [address] [place] [address] PCP - General Internal Medicine 03/06/20 10/06/22 Berenice Sher NP [address] [facility] [address] [place] [address] PCP - General Family Medicine 10/07/22 Rose Mary Manuel RN Registered Nurse 04/13/18 10/26/22 Shelley Colin MD Anesthesiologist Anesthesiology 08/02/19 10/26/22 Melquiades Parada MD Anesthesiologist Anesthesiology 08/02/19 10/26/22 Chloe Sheldon, PT [address] [facility] [address] [place] [address] Physical Therapist Physical Therapy 01/22/20 10/26/22 Pete Rivera MD [address] [address] Referring Physician Pain Management 06/02/21 Bettina Alexander, [facility] [address] [facility] ([facility] Mailstop [phone] [place] [address] SHOP Outpatient Health Director 06/03/21 06/07/21 Griffin Eller U Employment Advisor 10/27/22 Sadie Ventura Psychiatry 12/15/22 documented as of this encounter
--- OUTSIDE RECORDS SUMMARY | 2024-04-23 10:39 | XMS_ITS | Encounter Summary ---
Author Organization [facility] Healthcare Address [address] [place] [address] Care Team Providers Care Insecticide Mixer Name Role Phone KalebRose Mary RN Unavailable Unavailab Shelley Sullivan MD Unavailable Melquiades Parada MD Unavailable Joy Lara MD Primary Care Provider Chloe Sheldon PT Unavailable Pete Rivera MD Unavailable [phone] Alexander ASSISTANT PROFESSOR Unavailable Berenice Sher NP Primary Care Provider Encounter Details Date Type Department Care Team (Late st Contact Info) Description 03/17/2021 Telephone [facility] [address] [facility] [address] [place] [address] Melquiades Parada MD [address] [facility] [phone] [place] [address] Social History Tobacco Use Types Packs/Day Years Used Date Smoking Tobacco: Former E-cigarettes Started: 2016 Vaping Started: 2016 Smokeless Tobacco: Never Comments:vapor cigarettes/do es not smoke reg cigarettes Alcohol Use Standard Drinks/Week Comments Not Currently 1 (1 standard drink = 0.6 oz pur e alcohol) AUDIT-C Answer Date Recorded Q1: How often do you have a drink containing alc ohol? Never 02/10/2021 Average Number of Drinks Not on file 021 Frequency of Binge Drinking Not on file 01/25 PHQ-2 Answer Date Recorded PHQ-2 Total Score (If total score is 3 or more points, staff should administer the PHQ-9) 0 03/17/2021 Comments No Sex and Gender Information Value Date Recorded Sex Assigned at Female 06/25/2018 8:44 PM CDT Legal Sex Female 4:21 PM DRUG ABUSE COUNSELOR Gender Identity Female 10/27/2023 9:19 AM CDT Sexual Orientation Straight 06/25/2018 8: 44 PM CDT documented as of this encounter Plan of Treatment Not on file documented as of this encounter Goals Goal Patient Goal Type Associated Problems Recent Progress Patient-Stated? Author CCM Chronic Pain Care Plan Chronic Care Management Worsening( 10:10 AM DRUG ABUSE COUNSELOR) No Merna Rubio RN Note: Problem: Chronic Pain Goals: 1. Minimize further functional decline 2. Maximize quality of life 3. Control pain Strategies: - Activity/exercise program recommendation - Conservative stepwise pain medicine strategy with multi-disciplinary approach - Recommend healthy lifestyle strategies and compensatory methods as needed Reduce the likelihood of falling Lifestyle Worsening( 1:07 PM CDT) No Peg Abel RN Note: Below are four things you can do to prevent falls: 1. Begin an exercise program to improve your leg strength & balance 2. Ask your doctor or pharmacist to review your medicines 3. Get annual eye check-ups & update your eyeglasses 4. Make your home safer by: ?? Removing clutter & tripping hazards ?? Putting railings on all stairs & adding grab bars in the bathroom ?? Having good lighting, especially on stairs Contact your local community or senior [place] for information on exercise, fall prevention programs, or options for improving home safety. documented as of this encounter Visit Diagnoses Not on filedocumented in this encounter Additional Health Concerns Infection Onset Date Last Indicated Resolved Time COVID: Suspected 11/19/2021 11/19/2021 11/19/2021 12:25 PM CDT documented as of this encounter Care Teams Insecticide Mixer Relationship Specialty Start Date End Date Joy Lara MD [address] [place] [address] PCP - General Internal Medicine 03/06/20 10/06/22 Berenice Sher NP [address] [place] [address] PCP - General Family Medicine 10/07/22 Rose Mary Manuel, RN Registered Nurse 04/13/18 10/26/22 Shelley Colin MD Anesthesiologist Anesthesiology 08/02/19 10/26/22 Melquiades Parada MD Anesthesiologist Anesthesiology 08/02/19 10/26/22 Chloe Sheldon, PT [address] [facility] [address] [place] [address] Physical Therapist Physical Therapy 01/22/20 10/26/22 Pete Rivera MD [address] [facility] [address] [place] [address] Referring Physician Pain Management 06/02/21 Bettina Alexander, [facility] [address] [facility] ([facility] Mailstop [phone] [place] [address] SHOP Outpatient Guest Associate 06/03/21 06/07/21 Griffin Eller [employer] Cataloging Assistant 10/27/22 Sadie Ventura Psychiatry 12/15/22 documented as of this encounter
--- OUTSIDE RECORDS SUMMARY | 2024-04-23 10:39 | XMS_ITS | Encounter Summary ---
Author Organization [facility] Address [address] [place] [address] Phone Care Team Providers Care Senior Payroll Specialist Name Role Phone Riana Weaver MD Primary Care Provider Rose Mary Manuel RN Unavailable Unavailab Shelley Sullivan MD Unavailable Melquiades Parada MD Unavailable [phone] oJy Lara MD Primary Care Provider [phone] Chloe Sheldon PT Unavailable [phone] Pete Rivera MD Unavailable Bettina Alexander [facility] Unavailable [phone] Berenice Sher NP Primary Care Provider [phone] Encounter Details Date Type Department Care Team (Late st Contact Info) Description 02/15/2020 Documentation [facility] Physical Therapy [address] [facility] 1st Floor [address] [place] [address] Chloe Sheldon, PT 4444 [facility] [address] [place] [address] Social History Tobacco Use Types Packs/Day Years Used Date Smoking Tobacco: Every Day E-cigarettes Started: 2017 Vaping Started: 2017 Smokeless Tobacco: Current Comments:vapor cigarettes/do es not smoke reg cigarettes Alcohol Use Standard Drinks/Week Comments Not Currently 1 (1 standard drink = 0.6 oz pur e alcohol) Comments No Sex and Gender Information Value Date Recorded Sex Assigned at Female 06/25/2018 8:44 PM CDT 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 Author CCM Chronic Pain Care Plan Chronic Care Management Worsening( 10:10 AM MOLECULAR SPECTROSCOPIST) No Merna Rubio RN Note: Problem: Chronic [...] stairs Contact your local community or senior center for information on exercise, fall prevention programs, or options for improving home safety. documented as of this encounter Visit Diagnoses Not on filedocumented in this encounter Additional Health Concerns Infection Onset Date Last Indicated Resolved Time COVID: Suspected 06/23/2020 06/23/2020 06/24/2020 8:58 AM CDT COVID: Suspected 11/19/2021 11/19/2021 11/19/2021 12:25 PM CDT documented as of this encounter Care Teams Senior Payroll Specialist Relationship Specialty [place] [address] [facility] [address] [place] [address] PCP - General 06/25/16 03/05/20 Joy Lara MD [address] [place] [address] PCP - General Internal Medicine 03/06/20 10/06/22 Berenice Sher, PILAR [address] [place] [address] PCP - General Family Medicine 10/07/22 Rose Mary Manuel, RN Registered Nurse 04/13/18 10/26/22 Shelley Colin MD Anesthesiologist Anesthesiology 08/02/19 10/26/22 Melquiades Parada MD Anesthesiologist Anesthesiology 08/02/19 10/26/22 Chloe Sheldon, PT 4444 [facility] [address] [place] [address] Physical Therapist Physical Therapy 01/22/20 10/26/22 Pete Rivera MD 1725 [facility] [address] [place] [address] Referring Physician Pain Management 06/02/21 Bettina Alexander, BATTERY RECHARGER 4590 [facility] ([facility] Mailstop [phone] [place] [address] SHOP Outpatient Bar Finish Operator 06/03/21 06/07/21 Griffin Eller U Manufacturing Quality Technician 10/27/22 Sadie Ventura Psychiatry 12/15/22 documented as of this encounter
--- OUTSIDE RECORDS SUMMARY | 2024-04-23 10:39 | XMS_ITS | Encounter Summary ---
Author Organization [facility] Address [address] [place] [address] Phone Care Team Providers Care Admin Dir Name Role Phone Rose Mary Manuel RN Unavailable Unavailab Shelley Sullivan MD Unavailable Melquiades Parada MD Unavailable Joy Lara MD Primary Care Provider [phone] Chloe Sheldon PT Unavailable Pete Rivera MD Unavailable Bettina Alexander [facility] Unavailable Berenice Sher NP Primary Care Provider Encounter Details Date Type Department Care Team (Late st Contact Info) Description 03/18/2020 Documentation [facility] Physical Therapy [address] [facility] 1st Floor [address] [place] [address] Chloe Sheldon, PT 4444 [facility] [address] [facility] [place] [address] Social History Tobacco Use Types Packs/Day Years Used Date Smoking Tobacco: Every Day E-cigarettes Started: 2016 Vaping Started: 2017 Smokeless Tobacco: Current Comments:vapor cigarettes/do es not smoke reg cigarettes Alcohol Use Standard Drinks/Week Comments Not Currently 1 (1 standard drink = 0.6 oz pur e alcohol) PHQ-2 Answer Date Recorded PHQ-2 Total Score 6 03/05/2020 Comments No Sex and Gender Information Value Date Recorded Sex Assigned at Female 06/25/2018 8:44 PM CDT 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 Author CCM Chronic Pain Care Plan Chronic Care Management Worsening( 10:10 AM LAND LEASING EXAMINER) No Merna Rubio RN Note: Problem: Chronic [...] stairs Contact your local community or senior [place] for information on exercise, fall prevention programs, or options for improving home safety. documented as of this encounter Visit Diagnoses Not on filedocumented in this encounter Additional Health Concerns Infection Onset Date Last Indicated Resolved Time COVID: Suspected 06/23/2020 06/23/2020 06/24/2020 8:58 AM CDT COVID: Suspected 11/19/2021 11/19/2021 11/19/2021 12:25 PM CDT documented as of this encounter Care Teams Admin Dir Relationship Specialty Start Date End Date Jyo Lara MD [address] [place] [address] PCP - General Internal Medicine 03/06/20 10/06/22 Berenice Sher NP [address] [place] [address] PCP - General Family Medicine 10/07/22 Rose Mary Manuel, RN Registered Nurse 04/13/18 10/26/22 Shelley Colin MD Anesthesiologist Anesthesiology 08/02/19 10/26/22 Melquiades Parada MD Anesthesiologist Anesthesiology 08/02/19 10/26/22 Chloe Sheldon, PT 4444 [facility] [address] [place] [address] Physical Therapist Physical Therapy 01/22/20 10/26/22 Pete Rivera MD 1725 [facility] [address] [place] [address] Referring Physician Pain Management 06/02/21 Bettina Alexander, [facility] 4590 [facility] ([facility]) Mailstop [phone] [place] [address] SHOP Outpatient Music Promoter 06/03/21 06/07/21 Griffin Eller U Manager Golf 10/27/22 Sadie Ventura Psychiatry 12/15/22 documented as of this encounter
--- OUTSIDE RECORDS SUMMARY | 2024-04-23 10:39 | XMS_ITS | Encounter Summary ---
Author Organization [facility] Healthcare Address [address] [place] [address] Care Team Providers Care Casino Attendant Name Role Phone ManuelRose Mary amador RN Unavailable Unavailab Shelley Sullivan MD Unavailable Melquiades Parada MD Unavailable Joy Lara MD Primary Care Provider Chloe Sheldon PT Unavailable Pete Rivera MD Unavailable [phone] Bettina Alexander STOCK MANAGER Unavailable Berenice Sher NP Primary Care Provider [phone] Reason for Visit * Reason Onset Date Comments Prior Auth 01/04/2021 Morphine ER 15mg Encounter Details Date Type Department Care Team (Late st Contact Info) Description 01/04/2021 Telephone [facility] [address] [facility] Advanced Medicine [address] [place] [address] Melquiades Parada MD [address] [facility] [id number] [place] [address] Prior Auth (Morphine ER 15mg) Social History Tobacco Use Types Packs/Day Years Used Date Smoking Tobacco: Former E-cigarettes Started: 2016 Vaping Started: 2016 Smokeless Tobacco: Never Comments:vapor cigarettes/do es not smoke reg cigarettes Alcohol Use Standard Drinks/Week Comments Not Currently 1 (1 standard drink = 0.6 oz pur e alcohol) AUDIT-C Answer Date Recorded Q1: How often do you have a drink containing alc ohol? Never 08/25/2020 Q2: How many drinks containi ng alcohol do you have on a typical day when you are drinking? 1 or 2 08/25/2020 Q3: How often do you have six or more drinks on one occasion? 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 Author CCM Chronic Pain Care Plan Chronic Care Management Worsening( 10:10 AM POWDER WORKER) No Merna Rubio RN Note: Problem: Chronic [...] stairs Contact your local community or senior [place] for information on exercise, fall prevention programs, or options for improving home safety. documented as of this encounter Visit Diagnoses Not on filedocumented in this encounter Additional Health Concerns Infection Onset Date Last Indicated Resolved Time COVID: Suspected 11/19/2021 11/19/2021 11/19/2021 12:25 PM CDT documented as of this encounter Care Teams Casino Attendant Relationship Specialty Start Date End Date Joy Lara MD [address] [facility] [address] [place] [address] PCP - General Internal Medicine 03/06/20 10/06/22 Berenice Sher, FITNESS PROFESSIONAL [address] [facility] [address] [place] [address] PCP - General Family Medicine 10/07/22 Rose Mary Manuel, NATHAN Registered Nurse 04/13/18 10/26/22 Shelley Colin MD Anesthesiologist Anesthesiology 08/02/19 10/26/22 Melquiades Parada MD Anesthesiologist Anesthesiology 08/02/19 10/26/22 Chloe Sheldon, PT 4444 [facility] [address] [place] [address] Physical Therapist Physical Therapy 01/22/20 10/26/22 Pete Rivera MD 1725 [facility] [address] [place] [address] Referring Physician Pain Management 06/02/21 Bettina Alexander, STOCK MANAGER 4590 [facility] [place] Mailstop [id number] [place] [address] SHOP Outpatient Roll Cleaner 06/03/21 06/07/21 Griffin Eller U Injection Mold Tooling Technician 10/27/22 Sadie eVntura Psychiatry 12/15/22 documented as of this encounter
--- OUTSIDE RECORDS SUMMARY | 2024-04-23 10:39 | XMS_ITS | Encounter Summary ---
Author Organization [facility] Healthcare Address [address] [place] [address] Care Team Providers Care Seasonal Driver Name Role Phone Riana Weaver MD Primary Care Provider [phone] Rose Mary Manuel RN Unavailable Unavailab Shelley Sullivan MD Unavailable Melquiades Parada MD Unavailable [phone] Joy Lara MD Primary Care Provider [phone] Chloe Sheldon PT Unavailable Pete Rivera MD Unavailable Bettina Alexander EXTRUSION DIE COORDINATOR Unavailable Berenice Sher NP Primary Care Provider Reason for Visit * Reason Onset Date Comments RESCHEDULE JOHN 05/10/2019 Encounter Details Date Type Department Care Team (Late st Contact Info) Description 05/10/2019 Telephone [facility] at the [place] [facility] [address] [facility] Advanced Medicine [address] [place] [address] Melquiades Parada MD [address] [facility] [phone] [place], [place] [id number] RESCHEDULE W/ANA Social History Tobacco Use Types Packs/Day Years Used Date Smoking Tobacco: Every Day E-cigarettes Started: 2017 Smokeless Tobacco: Never Comments:vapor cigarettes/do es not smoke reg cigarettes Alcohol Use Standard Drinks/Week Comments Yes 1 (1 standard drink = 0.6 oz pur e alcohol) 2-3 glass of wine once a month Comments No Sex and Gender Information Value Date Recorded Sex Assigned at Female 06/25/2018 8:44 PM CDT 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 Author CCM Chronic Pain Care Plan Chronic Care Management Worsening( 10:10 AM YARDAGE CONTROL CLERK) No Merna Rubio, NATHAN Note: Problem: Chronic Pain Goals: 1. Minimize [...] stairs Contact your local community or senior [place] for information on exercise, fall prevention programs, or options for improving home safety. documented as of this encounter Visit Diagnoses Not on filedocumented in this encounter Additional Health Concerns Infection Onset Date Last Indicated Resolved Time COVID: Suspected 06/23/2020 06/23/2020 06/24/2020 8:58 AM CDT COVID: Suspected 11/19/2021 11/19/2021 11/19/2021 12:25 PM CDT documented as of this encounter Care Teams Seasonal Driver Relationship Specialty [place] [address] [address] [facility] [address] [place] [address] PCP - General 06/25/16 03/05/20 Joy Lara MD [address] [place] [address] PCP - General Internal Medicine 03/06/20 10/06/22 Berenice Sher, PILAR [address] [facility] [address] [place] [address] PCP - General Family Medicine 10/07/22 Rose Mary Manuel, RN Registered Nurse 04/13/18 10/26/22 Shelley Colin MD Anesthesiologist Anesthesiology 08/02/19 10/26/22 Melquiades Parada MD Anesthesiologist Anesthesiology 08/02/19 10/26/22 Chloe Sheldon, PT 4444 [facility] [address] [place] [address] Physical Therapist Physical Therapy 01/22/20 10/26/22 Pete Rivera MD [address] [facility] [address] [place] [address] Referring Physician Pain Management 06/02/21 Bettina Alexander, EXTRUSION DIE COORDINATOR 4590 [facility] ([facility]) Mailstop [phone] [place] [address] SHOP Outpatient Geographic Information Systems Director 06/03/21 06/07/21 Griffin SWANSON Car Storer 10/27/22 Sadie Ventura Psychiatry 12/15/22 documented as of this encounter
--- OUTSIDE RECORDS SUMMARY | 2024-04-23 10:39 | XMS_ITS | Encounter Summary ---
Author Organization [facility] Healthcare Address [address] [place] [address] Care Team Providers Care Roper Operator Name Role Phone Riana Weaver MD Primary Care Provider [phone] Rose Mary Manuel RN Unavailable Unavailab Shelley Sullivan MD Unavailable Melquiades Parada MD Unavailable [phone] Joy Lara MD Primary Care Provider Chloe Sheldon PT Unavailable Pete Rivera MD Unavailable Bettina Alexander RECONCILIATION MACHINE OPERATOR Unavailable [phone] Berenice Sher NP Primary Care Provider [phone] Reason for Visit * Reason Onset Date Comments Med Refill 06/26/2018 Encounter Details Date Type Department Care Team (Late st Contact Info) Description 06/26/2018 Telephone [facility] Pain Center at the [place] [facility] [address] [facility] Advanced Medicine [address] [place] [address] Melquiades Parada MD 49[address] [facility] [phone] [place] [address] Med Refill Social History Tobacco Use Types Packs/Day Years [...] PM CDT 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 Author CCM Chronic Pain Care Plan Chronic Care Management Worsening( 10:10 AM SENIOR BRAND MANAGER) No Merna Rubio, NATHAN Note: Problem: Chronic [...] documented as of this encounter Care Teams Roper Operator Relationship Specialty [place] [address] [facility] [address] [place] [address] PCP - General 06/25/16 03/05/20 Joy Lara MD [address] [place] [address] PCP - General Internal Medicine 03/06/20 10/06/22 Berenice Sher NP [address] [place] [address] PCP - General Family Medicine 10/07/22 Rose Mary Manuel, RN Registered Nurse 04/13/18 10/26/22 Shelley Colin MD Anesthesiologist Anesthesiology 08/02/19 10/26/22 Melquiades Parada MD Anesthesiologist Anesthesiology 08/02/19 10/26/22 Chloe Sheldon, PT 4444 [facility] [address] [place] [address] Physical Therapist Physical Therapy 01/22/20 10/26/22 Pete Rivera MD [address] [address] Referring Physician Pain Management 06/02/21 Bettina Alexander, [facility] 4590 [facility] ([facility]) Mailstop [phone] [place] [address] SHOP Outpatient Family Medicine Physician 06/03/21 06/07/21 Griffin Eller [facility] Mobile Lab Technician 10/27/22 Sadie Ventura Psychiatry 12/15/22 documented as of this encounter
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
--- OUTSIDE RECORDS SUMMARY | 2024-04-23 10:39 | XMS_ITS | Referral Summary ---
Author Organization [facility] Address [address] [place] [address] Care Team Providers Care Overlay Plastician Name Role Phone Berenice Sher Primary Care Provider Unavailabl e Source Comments [facility],non-owned Affiliates and Associated Physician Practices is amultiple site organization consisting of ambulatory clinics and hospital sitesin [place], [place], [place] and [place]. This disclosure is being madepursuant to the Care Everywhere program and may not contain all information available regarding this patient. Last updated 17.[facility] Allergies Active Allergy Reactions Criticality Noted Date [...] 03/11/1997, 7,1996 HIB BOOSTER 1996 INFLUENZA A H0T1-14 VACCINE 02/05/2009 INFLUENZA VACCINE 03/12/2003 INFLUENZA VACCINE, QUADR. (F LUZONE; FLULAVAL; FLUARIX; AFLURIA QUADRIVALENT; 6MO+), 0.5 ML (IIV4) 03/17/2021,03/05/2020,04/25/2018,06/08 Influenza Nasal 02/05/2009 MENINGOCOCCAL CONJUGATE (MCV4P) 10/15/2008 MMR 07/15/2000,07/16/1997 POLIO IPV 12/15/2000, 8,1996,08/21 TD (AGE 7-ADULT) 08/19/2021 TDAP (7yrs+) 10/15/2008 Social History Tobacco Use Types Packs/Day Years [...] Comments Blood Pressure 110/80 05/04/2023 11:02 AM CHAIN TESTING MACHINE OPERATOR Pulse 95 05/04/2023 11:02 AM CHAIN TESTING MACHINE OPERATOR Temperature 36.7 ??C (98.1 ??F) 03/22/2022 9:33 AM CS T Respiratory Rate 20 01/26/2022 2:30 PM CDT Oxygen Saturation 99% 05/04/2023 11: 02 AM CHAIN TESTING MACHINE OPERATOR Inhaled Oxygen Concentration - - Weight 69.7 kg (153 lb 11.2 oz) 024 11:02 AM CHAIN TESTING MACHINE OPERATOR Height 170.2 cm (5' 7 ) 05/04/2023 11:0 2 AM CHAIN TESTING MACHINE OPERATOR Body Mass Index 24.07 05/04/2023 11:02 AM CHAIN TESTING MACHINE OPERATOR Plan of Treatment Not on file Procedures Procedure Name Priority Date/Time Associated Diagnosis [...] ITHELIAL LESION OR MALIGNANCY. Specimen Adequacy [facility] INSURANCE BILL Comment: Satisfactory for evaluation. ??Endocervical and/or squamous metaplastic cells (endocervical component) are present. Clinician Provided ICD10 [facility] INSURANCE BILL Comment: Z01.419 Z11.3 Z20.2 Z30.433 Performed by [facility] INSURANCE BILL Comment:Merna Sanderson , Director Wholesale (ASCP) Comment . [facility] INSURANCE BILL Note [facility] [...] Resulting Agency Comment Lab Testing performed at: [address] ??[place] [phone] Omar Irwin MD LAB - PATHOLOGY/CYT OLOGY ORDERABLES [facility] INSURANCE BILL [address] [place] [address] from Last 3 Months or Most Recently Relevant to Health Maintenance Administered Medications Care Teams Overlay Plastician Relationship Specialty Start Date End Date Berenice Sher PCP - General 02/13/23
--- OUTSIDE RECORDS SUMMARY | 2024-04-23 10:39 | XMS_ITS | Encounter Summary ---
Author Organization [facility] Address [address] [place] [address] Care Team Providers Care Quality Eng Name Role Phone ManuelRose Mary RN Unavailable Unavailab Shelley Sullivan MD Unavailable Melquiades Parada MD Unavailable Joy Lara MD Primary Care Provider Chloe Sheldon PT Unavailable [phone] Pete Rivera MD Unavailable [phone] Alexander SPOOL SORTER Unavailable Berenice Sher NP Primary Care Provider [phone] Reason for Visit * Reason Onset Date Comments PAIN CONFERENCE 06/23/2020 Encounter Details Date Type Department Care Team (Late st Contact Info) Description 06/23/2020 Telephone [facility] [address] [place], [place] [id number] Melquiades Parada MD [address] [facility] [address] [address] [facility] [id number] [place] [address] PAIN CONFERENCE Social History Tobacco Use Types Packs/Day Years Used Date Smoking Tobacco: Former E-cigarettes Started: 2016 Vaping Started: 2016 Smokeless Tobacco: Never Comments:vapor cigarettes/do es not smoke reg cigarettes Alcohol Use Standard Drinks/Week Comments Not Currently 1 (1 standard drink = 0.6 oz pur e alcohol) AUDIT-C Answer Date Recorded Q1: How often do you have a drink containing alc ohol? Monthly or less 06/16/2020 Q2: How many drinks containi ng alcohol do you have on a typical day when you are drinking? 1 or 2 06/16/2020 Q3: How often do you have si x or more drinks on one occasion? Less than monthly 06/16/2020 PHQ-2 Answer Date Recorded PHQ-2 Total Score 6 03/05/2020 Comments No Sex and Gender Information Value Date Recorded Sex Assigned at Female 06/25/2018 8:44 PM CDT Legal Sex Female 4:21 PM TELEMETRY RN Gender Identity Female 10/27/2023 9:19 AM CDT Sexual Orientation Straight 06/25/2018 8: 44 PM CDT documented as of this encounter Plan of Treatment Not on file documented as of this encounter Goals Goal Patient Goal Type Associated Problems Recent Progress Patient-Stated? Author CCM Chronic Pain Care Plan Chronic Care Management Worsening( 10:10 AM TELEMETRY RN) No Merna Rubio RN Note: Problem: Chronic [...] documented as of this encounter Care Teams Quality Eng Relationship Specialty Start Date End Date Joy Laar MD [address] [facility] [address] [place] [address] PCP - General Internal Medicine 03/06/20 10/06/22 Berenice Sher, PILAR [address] [facility] [address] [place], [place] [id number] PCP - General Family Medicine 10/07/22 Rose Mary Manuel RN Registered Nurse 04/13/18 10/26/22 Shelley Colin MD Anesthesiologist Anesthesiology 08/02/19 10/26/22 Melquiades Parada MD Anesthesiologist Anesthesiology 08/02/19 10/26/22 Chloe Sheldon, PT [address] [facility] [address] [place] [address] Physical Therapist Physical Therapy 01/22/20 10/26/22 Pete Rivera MD [address] [facility] [address] [place] [address] Referring Physician Pain Management 06/02/21 Bettina Alexander, SPOOL SORTER [address] [facility] [place] [phone] [place] [address] SHOP Outpatient Neurophysiologist 06/03/21 06/07/21 Griffin Eller Harjit [employer] Nurse 10/27/22 Sadie Ventura Psychiatry 12/15/22 documented as of this encounter
--- OUTSIDE RECORDS SUMMARY | 2024-04-23 10:39 | XMS_ITS | Patient Health Summary ---
Author Organization [facility] [place] Address [address] [place] [address] Care Team Providers Care Claims Customer Service Representative Name Role Phone Berenice Sher Primary Care Provider Anthony e Note from [facility],non-owned Affiliates and Associated Physician Practices is amultiple site organization consisting of ambulatory clinics and hospital sitesin [place], [place], [place] and [place]. This disclosure is being madepursuant to the Care Everywhere program and may not contain all information available regarding this patient. Last updated 17.[facility] Allergies * Adhesive Sensitivity(Itching,Rash) -Medium Criticality * Aloe(Itching,Rash) -Medium Criticality * Other(Tape and nuts) * Oxcarbazepine(Other) -High Criticality * Tree Nuts(Anaphylaxis,Itching,Shortness of Breath,Swelling) -High Criticality Medications * Be aware that medications may not be up to date on this document. Alwaysverify current medications with the patient. * EPIPEN 2-ANNIE 0.3 MG/0.3ML auto-injector(Started 04/28/2014) * Acetaminophen (TYLENOL PO) * venlafaxine (Effexor) 75 MG tablet(Started 01/25/2021) Take 1 (one) tablet by mouth once daily * atomoxetine (Strattera) 40 MG capsule Take 1 (one) capsule by mouth once daily * QUEtiapine (SEROquel) 25 MG tablet(Started 12/14/2022) * FLUoxetine (PROzac) 10 MG capsule(Started 02/11/2023) * Methylphenidate HCl (methylphenidate CR) 18 MG tablet Take 1 (one) tablet by mouth every morning * sodium chloride 1 GM tablet(Started 05/04/2023) Take 1 (one) tablet by mouth 3 times daily with meals 11 refills by 05/03/2024 Active Problems Problem Noted Date Diagnosed Date SVT (supraventricular tachycardia) 03/23/2022 02/13/2023 POTS (postural orthostatic tachycardia syndrome) 03/23/2022 02/13/2023 Vasovagal syncope 11/02/2021 02/13/2023 Observed seizure-like activity 09/07/2021 1 04/15/2022 Gastroesophageal reflux disease without esophagi tis 03/17/2021 02/13/2023 CRPS (complex regional pain syndrome) type I 02/13/2023 Attention deficit hyperactivity disorder (ADHD) 04/26/2020 02/13/2023 Nicotine dependence due to vaping tobacco produc t 03/05/2020 02/13/2023 Anxiety 01/06/2018 02/13/2023 S/P insertion of spinal cord stimulator 11/10/1902/13/2023 Insomnia 05/21/2016 02/13/2023 Major depression 07/12/2012 02/13/2023 Migraine 05/23/2011 Disturbance in sleep behavior 05/23/2011 Resolved Problems Problem Noted Date Diagnosed Date Resolved Date Injury 12/02/2007 08/04/2009 Immunizations * DTaP VACCINE IM (6wk-6yrs)(Given 11/18/1997, 1996, 1996, 1996) * HEP B VACCINE(Given 1996) * HEP B VACCINE ADOL/ADULT 2 DOSE(Given 03/11/1997, 1996, 1996) * HEP B VACCINE, ADULT 3 DOSE(Given 03/11/1997, 1996, 1996) * HIB BOOSTER(Given 1996) * INFLUENZA A Y2L1-86 VACCINE(Given 02/05/2009) * INFLUENZA VACCINE(Given 03/12/2003) * INFLUENZA VACCINE, QUADR. (FLUZONE; FLULAVAL; FLUARIX; AFLURIA QUADRIVALENT; 6MO+), 0.5 ML (IIV4)(Given 03/17/2021, 03/05/2020, 04/25/2018, 06/08/2016) * Influenza Nasal(Given 02/05/2009) * MENINGOCOCCAL CONJUGATE (MCV4P)(Given 10/15/2008) * MMR(Given 07/15/2000, 07/16/1997) * POLIO IPV(Given 12/15/2000, 11/22/1997, 1996, 1996) * TD (AGE 7-ADULT)(Given 08/19/2021) * TDAP (7yrs+)(Given 10/15/2008) Social History Tobacco Use Types Packs/Day Years [...] Comments Blood Pressure 110/80 05/04/2023 11:02 AM MUSIC SPECIALIST Pulse 95 05/04/2023 11:02 AM MUSIC SPECIALIST Temperature 36.7 ??C (98.1 ??F) 03/22/2022 9:33 AM CS T Respiratory Rate 20 01/26/2022 2:30 PM CDT Oxygen Saturation 99% 05/04/2023 11: 02 AM MUSIC SPECIALIST Inhaled Oxygen Concentration - - Weight 69.7 kg (153 lb 11.2 oz) 024 11:02 AM MUSIC SPECIALIST Height 170.2 cm (5' 7 ) 05/04/2023 11:0 2 AM MUSIC SPECIALIST Body Mass Index 24.07 05/04/2023 11:02 AM MUSIC SPECIALIST Procedures * CHLAMYDIA + GC + TRICH DNA AMPL(Performed 04/28/2022) Performed for Screening examination for venereal disease * EKG 12-LEAD(Performed 02/22/2022) * HCG URINE QUAL POCT NOTIFICATION(Performed 01/26/2022) Performed for Preop examination * PATHOLOGY TISSUE EXAM (STL)(Performed 01/26/2022) Performed for Irritable bowel syndrome with constipation * NC COLONOSCOPY,BIOPSY(Performed 01/26/2022) Performed for Irritable bowel syndrome with constipation * COLONOSCOPY SCREEN(Performed 01/26/2022) Performed for Irritable bowel syndrome with constipation * ENDOSCOPY, COLON, DIAGNOSTIC(Performed 01/26/2022) Performed for Change in bowel habits * HCG URINE QUALITATIVE - POCT (IP) INTERFACED(Performed 01/26/2022) * ECHO COMPLETE(Performed 01/11/2022) Performed for Heart palpitations, Postural dizziness with presyncope * CARDIAC PROCEDURE ORDER(Performed 01/04/2022) * PATHOLOGY TISSUE EXAM (STL)(Performed 10/13/2021) Performed for Epigastric pain * HELICOBACTER PYLORI UREASE (STL)(Performed 10/13/2021) Performed for Epigastric pain * HCG URINE QUAL POCT NOTIFICATION(Performed 10/13/2021) Performed for Pre-procedural examination * EGD(Performed 10/13/2021) Performed for Nausea and vomiting, intractability of vomiting not specified, unspecified vomiting type, Epigastric pain * HCG URINE QUALITATIVE - POCT (IP) INTERFACED(Performed 10/13/2021) * NC EGD FLEX TRANSORAL W BX SNGL OR MULT(Performed 10/13/2021) Performed for Epigastric pain * NC ED EGD FLEX TRANSORAL DX(Performed 10/13/2021) Performed for Epigastric pain * SARS-COV-2 (COVID-19) FLU A/B RSV PCR RAPID(Performed 06/26/2021) * XR CHEST 1VW PORTABLE(Performed 06/26/2021) Performed for SOB (shortness of breath) * CK BLOOD(Performed 06/26/2021) * COMPREHENSIVE METABOLIC PANEL(Performed 06/26/2021) * SARS-COV-2 (COVID-19) FLU A/B RSV PCR RAPID(Performed 05/29/2021) * COMPREHENSIVE METABOLIC PANEL(Performed 05/29/2021) * CBC W AUTO DIFFERENTIAL(Performed 05/29/2021) * CT LUMBAR SPINE W CONTRAST(Performed 04/22/2021) Performed for Back pain with history of spinal surgery * HCG BLOOD QUALITATIVE(Performed 04/22/2021) * COMPREHENSIVE METABOLIC PANEL(Performed 04/22/2021) * CBC W AUTO DIFFERENTIAL(Performed 04/22/2021) * CULTURE STREP GROUP A(Performed 10/10/2020) Performed for Sore throat * SARS-COV-2 (COVID-19) IN HOUSE(Performed 10/10/2020) Performed for Sore throat * STREP A SCREEN - POCT (IP) URGENT CARE(Performed 10/10/2020) Performed for Sore throat * PAP IG LB CT+NG+TV RFLX HPV ASCU(Performed 07/21/2020) Performed for Well woman exam, Screening for STDs (sexually transmitted diseases), Possible exposure to STD * VAGINITIS PLUS (BV CA CT NG TRICH)(Performed 05/05/2014) Performed for Routine gynecological examination * VAGINITIS PLUS (BV CA CT NG TRICH)(Performed 09/24/2013) Performed for Pelvic pain in female, Irregular bleeding, Dysmenorrhea * VAGINITIS PLUS (BV CA CT NG TRICH)(Performed 07/25/2012) Performed for Routine Gynecological Examination * FERRITIN(Performed 05/23/2011) Performed for Sleep disturbance, unspecified * XR CHEST 2VW(Performed 02/23/2011) Performed for Cough * MRI ANKLE LEFT WO CONTRAST(Performed 02/01/2010) Performed for Pain in joint, ankle and foot * XR FOOT LEFT 3VW OR MORE(Performed 08/04/2009) Performed for Foot Pain * GENERAL HEALTH PANEL(Performed 05/13/2009) Performed for Malaise and Fatigue * XR SACRUM AND COCCYX(Performed 02/16/2009) Performed for Coccyx Pain * US ABDOMEN LIMITED(Performed 05/30/2008) Performed for Abdominal Pain, Generalized * CULTURE STREP GROUP A(Performed 05/27/2008) Performed for Strep Throat * XR PELVIS W BILAT HIP 2VW(Performed 12/07/2007) Performed for Joint Pain-L/Leg * XR FEMUR RIGHT 2VW(Performed 12/02/2007) Performed for Injury * STREP A SCREEN - POINT OF CARE (AMB)(Performed 06/28/2007) Performed for Strep Sore Throat * GROSS + MICRO EXAM(Performed 05/24/2005) Results * CHLAMYDIA + GC + TRICH DNA AMPL (04/28/2022 12:48 PM MUSIC SPECIALIST) Chlamydia trachomatis JERARDO Negative Negative [facility] INSURANCE BILL GC DNA Probe Negative Negative [facility] INSURANCE BILL Trichomonas vaginalis by JERARDO Negative Negative [facility] INSURANCE BILL Microbiology ENTIRE VAGINA / Unknown 04/28/2022 12:48 PM MUSIC SPECIALIST 04/28/2022 Narrative Resulting Agency Comment Lab Testing performed at: [facility] ??Clay MALDONADO [phone] Omar Irwin MD LAB - MICROBIOLOGY ORDERABLES [facility] INSURANCE BILL [address] [place] [address] * EKG 12-LEAD (02/22/2022 9:45 AM MUSIC SPECIALIST) Narrative Gianna Maher MD - 02/22/2022 9:45 AM MUSIC SPECIALIST Gianna Maher MD ? 03/04/2022 12:41 AM Read Date: ??02/16/2022 Patient name: Chandra Mcdonald Patient : ??1995 Patient Age: [age] year old EVENT MONITOR REPORT: Indication for placement: Syncope and Collapse Requesting MD: Dr. Maher Duration of monitorin days Available tracings are adequate for interpretation for 10 days 15 hours 36 minutes. 1. ??The mean average HR overall was: 70 bpm 2. ??The fastest HR noted was: 180 BPM at 04:52 PM 3. ??The slowest HR noted was: 39 BPM at 05:17AM 4. ?? 165 ventricular ectopic complexes occurred (<1 % of 1.056 million complexes). 5. ??Atrial fibrillation was not detected. ??Atrial fibrillation burden was 0 %. 6. ??No Pause(s) noted of 3 seconds or longer. Patient transmitted no manually-triggered recordings. There were 3 auto-triggered episodes that corresponded to sinus tachycardia and an episode of non-sustained supraventricular tachycardia that lasted for 10.5 seconds. Final Interpretation: ?? Normal sinus rhythm with one episode of non-sustained supraventricular tachycardia that lasted for 10.5 seconds.However, there were no significant sustained arrhythmias, bradycardia or pauses. Gianna Maher MD Cardiology/ EP attending Griffin Eller MD ECG ORDERABLES * HCG URINE QUAL POCT NOTIFICATION (01/26/2022 2:30 PM CDT) Only the most recent of2 resultswithin the time period is included. Comment Notification Label Only - See Separate Report 01/26/2022 2:30 PM CDT [facility] Urine URINE / Unknown 1:15 PM CDT Mitch Thompson MD LAB - URINALYSIS ORD ERABLES [facility] [address] [place] [address] * PATHOLOGY TISSUE EXAM (STL) (01/26/2022 2:05 PM CDT) Only the most recent of2 resultswithin the time period is included. Case Report Surgical Pathology Report ? Case: [id number] ? Authorizing Provider: ??Mitch Thompson MD ?Collected: ? 01/26/2022 02:05 PM ? Ordering Location: ? [facility] ?Received: ?01/26/2022 03:52 PM ? Pathologist: ? Clinton Vanessa MD ? Specimens: ?? A) - Ileum Terminal ? B) - Colon Biopsy ? 01/27/2022 9:42 AM CDT [facility] Final Diagnosis Terminal ileum, colonoscopic biopsy (A): 1. Negative for significant histopathologic abnormalities Large intestine, colonoscopic biopsy (B): 1. Negative for significant histopathologic abnormalities 01/27/2022 9:42 AM CDT [facility] Clinical History Irritable bowel syndrome with constipation 01/27/2022 9:42 AM CDT [facility] Gross Description The requisition and specimen are identified with patient's name and date of . Received in formalin, specimen A, ileum terminal are 2 light-aguilera mucosal tissues, 0.4 x 0.3 x 0.2 cm and 0.3 x 0.3 x 0.2 cm. Entirely submitted in cassette A1. Received in formalin, specimen B, colon biopsy are 3 pieces mucosal tissues, 0.2-0.3 cm in greatest dimension and 0.8 x 0.2 x 0.2 cm aggregate. Entirely submitted in cassette B1. LJ 01/27/2022 9:42 AM CDT [facility] Microscopic Description The small intestinal type mucosa in part A has retention of its normal villous architectural pattern and villous to crypt ratio. It is free of increased surface intraepithelial lymphocytes and significant acute and chronic inflammation. It is negative for parasites, granulomas, dysplasia and malignancy. It has the expected component of plasma cells in the lamina propria. It is negative for celiac disease. The colorectal type mucosa in part B has retention of its normal cryptic architecture pattern and is free of increased surface intraepithelial lymphocytes, significant acute and chronic inflammation, parasites, crypt abscesses, granulomas, dysplasia and malignancy. It lacks evidence for collagenous or microscopic colitis. 01/27/2022 9:42 AM CDT [facility] Disclaimer All histochemical and/or immunohistochemical results are interpreted with controls that demonstrate appropriate staining reactions before reporting results. Note on use of immunocytochemistry reagents: This test was developed and its performance characteristic determined by [facility], Department of Laboratory Medicine. It has not been cleared or approved by the U.S. Food and Drug Administration (FDA). The FDA has determined that such clearance or approval is not necessary. The test is used for clinical purpose. It should not be regarded as investigational or for research. This laboratory is certified to perform high complexity testing. The performance characteristics of the IHC/RENÉE assays have been validated on formalin-fixed paraffin embedded tissues only. The assays have not been validated on decalcified tissues. Results should be interpreted with caution. 01/27/2022 9:42 AM CDT [facility] Embedded Images 01/27/2022 9:42 AM CDT [facility] Pathology/Cytology TERMINAL ILEUM RESECTION SPECIMEN / Unknown 01/26/2022 2:05 PM CDT 01/26/2022 3:52 PM CDT Comment:Pre-op diagnosis: Irritable bowel syndrome with constipation [K58.1] Miscellaneous samples (specimen) COLONIC BIOPSY SPECIMEN / Unknown 01/26/2022 2:06 PM CDT 01/26/2022 3:52 PM CDT Comment:Pre-op diagnosis: Irritable bowel syndrome with constipation [K58.1] Mitch Thompson MD LAB - PATHOLOGY/CYTO LOGY ORDERABLES Performing Organization Address City/State/[facility] Co de Phone Number [facility] [address] [place] [address] * ENDOSCOPY, COLON, DIAGNOSTIC (01/26/2022 1:49 PM CDT) Report Endoscopy POC _ Patient Name: Chandra Mcdonald ? Procedure Date: 01/26/2022 1:49 PM ? Date of : 1995 ?Admit Type: Outpatient Age: 26 ? Gender: Female Ethnicity: Not or ? Race: White Attending MD: Mitch Thompson MD ? _ Procedure: ? Colonoscopy Indications: ? Clinically significant diarrhea of unexplained origin Providers: ? Mitch Thompson MD (Doctor), Sonja Hernandez RN, ? Earlene Olivas, Train Station Agent Patient Profile: ? 26F presents for eval of diarrhea, weight loss. no ? prior exams Referring MD: ?Joy Lara MD (Referring MD) Medicines: ? Monitored Anesthesia Care Complications: ? No immediate complications. _ Estimated Blood Loss: ? Estimated blood loss was minimal. Procedure: ? Pre-Anesthesia Assessment: ? - Prior to the procedure, a History and Physical was ? performed, and patient medications and allergies were ? reviewed. The patient's tolerance of previous ? anesthesia was also reviewed. The risks and benefits ? of the procedure and the sedation options and risks ? were discussed with the patient. All questions were ? answered, and informed consent was obtained. Prior ? Anticoagulants: The patient has taken no previous ? anticoagulant or antiplatelet agents. ASA Grade ? Assessment: II - A patient with mild systemic disease. ? After reviewing the risks and benefits, the patient ? was deemed in satisfactory condition to undergo the ? procedure. ? After I obtained informed consent, the scope was ? passed under direct vision. Throughout the procedure, ? the patient's blood pressure, pulse, and oxygen ? saturations were monitored continuously. The ? Colonoscope was introduced through the anus and ? advanced to the terminal ileum. The colonoscopy was ? performed without difficulty. The patient tolerated ? the procedure well. The quality of the bowel ? preparation was fair. The terminal ileum, ileocecal ? valve, appendiceal orifice, and rectum were ? photographed. ? Impression: ?- Preparation of the colon was fair. ? - The examined portion of the ileum was normal. ? Biopsied. ? - The entire examined colon is normal. Biopsied. ? - The examination was otherwise normal. Findings: ? The perianal and digital rectal examinations were normal. ? The terminal ileum appeared normal. Biopsies were taken with a cold ? forceps for histology. ? The colon (entire examined portion) appeared normal. Biopsies were taken ? with a cold forceps for histology. ? The exam was otherwise without abnormality. _ Recommendation: ?- Patient has a contact number available for ? emergencies. The signs and symptoms of potential ? delayed complications were discussed with the patient. ? Return to normal activities tomorrow. Written ? discharge instructions were provided to the patient. ? - Resume previous diet. ? - Await pathology results. ? - Repeat colonoscopy at age 46 for screening purposes. ? Procedure Code(s): ? --- Professional --- ? 76452, Colonoscopy, flexible; with biopsy, single or multiple ? --- Technical --- ? 63769, Colonoscopy, flexible; with biopsy, single or multiple Diagnosis Code(s): ? --- Professional --- ? R19.7, Diarrhea, unspecified ? --- Technical --- ? R19.7, Diarrhea, unspecified CPT copyright 2019 [employer]. All rights reserved. The codes documented in this report are preliminary and upon healthcare liaison review may be revised to meet current compliance requirements. Mitch Thompson MD 01/26/2022 2:14:16 PM This report has been signed electronically. Number of Addenda: 0 Note Initiated On: 01/26/2022 1:49 PM [facility] 01/26/2022 1:49 PM CDT Narrative Procedure Note Mitch Thompson MD - 01/26/2022 2:14 PM CDT Normal ileocolonoscopy s/p ileal/colon bx Await path Cont current regimen Mitch Thompson MD GI PROCEDURE ORDERAB LES [facility] * HCG URINE QUALITATIVE - POCT (IP) INTERFACED (01/26/2022 1:22 PM CDT) Only the most recent of2 resultswithin the time period is included. HCG Qual Urine Negative Negative 01/26/2022 1:28 PM CDT [facility] Urine URINE / Unknown 01/26/2022 1 :22 PM CDT 01/26/2022 1:28 PM CDT Mitch Thompson MD LAB - POINT OF CARE ORDERABLES [facility] [address] [place] [address] * ECHO COMPLETE (01/11/2022 2:22 PM CDT) Anatomical Region Laterality Modality Chest Echo 01/11/2022 1:52 PM CDT Narrative Procedure Note Teagan Akbar MD - 01/12/2022 Laith Walsh MEAT INSPECTOR-MAINTENANCE PARTS TECHNICIAN ECHOCARDIOGRA PHY RADIANT * CARDIAC PROCEDURE ORDER (01/04/2022) Narrative 01/04/2022 Ordered by an unspecified provider. Scanned Document CARDIAC SERVICES ORD ERABLES * HELICOBACTER PYLORI UREASE (STL) (10/13/2021 12:37 PM CDT) Helicobacter pylori Urease Initial Negative Negative 10/14/2021 9:18 AM CDT [facility] Helicobacter pylori Urease Final Negative Negative 10/14/2021 9:18 AM CDT [facility] Microbiology GASTRIC BIOPSY SPECIMEN / Unknown 10/13/2021 12:37 PM CDT 10/13/2021 5:59 PM CDT Comment:Pre-op diagnosis: Epigastric pain [R10.13] Mitch Thompson MD LAB - MICROBIOLOGY O RDERABLES [facility] [address] [place] [address] * EGD (10/13/2021 12:14 PM CDT) Report Endoscopy POC _ Patient Name: Chandra Mcdonald ? Procedure Date: 10/13/2021 12:14 PM ? Date of : 1995 ?Admit Type: Outpatient Age: 26 ? Gender: Female Ethnicity: Not or ? Race: White Attending MD: Mitch Thompson MD ? _ Procedure: ? Upper GI endoscopy Indications: ? Generalized abdominal pain Providers: ? Mitch Thompson MD (Doctor), Sonja Bowman RN, Loretta ? Vanessa Alonso RN Patient Profile: ? 26F presents for eval of abd pain Referring MD: ?Joy Lara MD (Referring MD) Medicines: ? Monitored Anesthesia Care Complications: ? No immediate complications. _ Estimated Blood Loss: ? Estimated blood loss was minimal. Procedure: ? Pre-Anesthesia Assessment: ? - Prior to the procedure, a History and Physical was ? performed, and patient medications and allergies were ? reviewed. The patient's tolerance of previous ? anesthesia was also reviewed. The risks and benefits ? of the procedure and the sedation options and risks ? were discussed with the patient. All questions were ? answered, and informed consent was obtained. Prior ? Anticoagulants: The patient has taken no previous ? anticoagulant or antiplatelet agents. ASA Grade ? Assessment: II - A patient with mild systemic disease. ? After reviewing the risks and benefits, the patient ? was deemed in satisfactory condition to undergo the ? procedure. ? After obtaining informed consent, the endoscope was ? passed under direct vision. Throughout the procedure, ? the patient's blood pressure, pulse, and oxygen ? saturations were monitored continuously. The Endoscope ? was introduced through the mouth, and advanced to the ? second part of duodenum. The upper GI endoscopy was ? accomplished without difficulty. The patient tolerated ? the procedure well. ? Impression: ?- Normal esophagus. ? - Normal stomach. Biopsied. ? - Normal examined duodenum. Biopsied. Findings: ? The examined esophagus was normal. ? The entire examined stomach was normal. Biopsies were taken with a cold ? forceps for Helicobacter pylori testing using CLOtest. ? The examined duodenum was normal. Biopsies were taken with a cold ? forceps for histology. _ Recommendation: ?- Patient has a contact number available for ? emergencies. The signs and symptoms of potential ? delayed complications were discussed with the patient. ? Return to normal activities tomorrow. Written ? discharge instructions were provided to the patient. ? - High fiber diet. ? - Await pathology results. ? - Miralax 1 capful (17 grams) in 8 ounces of water PO ? daily. ? - Dulcolax 1 tab or cap PO QD PRN. ? - Return to GI clinic as previously scheduled. ? Procedure Code(s): ? --- Professional --- ? 31983, Esophagogastroduo denoscopy, flexible, transoral; with biopsy, ? single or multiple ? --- Technical --- ? 38340, Esophagogastroduo denoscopy, flexible, transoral; with biopsy, ? single or multiple Diagnosis Code(s): ? --- Professional --- ? R10.84, Generalized abdominal pain ? --- Technical --- ? R10.84, Generalized abdominal pain CPT copyright 2019 [employer]. All rights reserved. The codes documented in this report are preliminary and upon healthcare liaison review may be revised to meet current compliance requirements. Mitch Thompson MD 10/13/2021 12:44:59 PM This report has been signed electronically. Number of Addenda: 0 Note Initiated On: 10/13/2021 12:14 PM [facility] 10/13/2021 12:1 4 PM CDT Narrative Procedure Note Mitch Thompson MD - 10/13/2021 12:45 PM CDT Normal EGD s/p gastric/SB bx Await path miralax qd Dulcolax to qd prn Fu in office D/w Chandra Mitch Thompson MD GI PROCEDURE ORDERAB LES [facility] * SARS-COV-2 (COVID-19) FLU A/B RSV PCR RAPID (06/26/2021 10:28 AM CDT) Only the most recent of2 resultswithin the time period is included. COVID-19 PCR Not detected Not detected 06/27/19 11:21 AM CDT [facility] Influenza A PCR Not detected Not detected 06/26/2021 11:21 AM CDT [facility] Influenza B PCR Not detected Not detected 06/26/2021 11:21 AM CDT [facility] RSV PCR Not detected Not detected 06/26/2021 11:21 AM CDT [facility] Microbiology SPECIMEN FROM NASOPHARYNGEAL STRUCTURE / Unknown Collection / Unknown 06/26/2021 10:28 AM CDT 06/26/2021 10:39 AM CDT Narrative [facility] - 06/26/2021 11:21 AM CDT This nucleic acid amplification assay has been authorized by the Food and Drug administration (FDA) under an Emergency??Use Authorization (EUA).?? This test is only authorized for the duration of time the declaration that circumstances exist justifying the authorization of emergency use of in vitro diagnostic tests for detection of SARS-CoV-2 virus and/or diagnosis of COVID-19 infection under section 564(b)(1) of the Act, 21 U.S.C 360bbb-3 (b)(1), unless the authorization is terminated or revoked sooner. Fact Sheets for this EUA assay are available upon request. Mark Ledesma DO LAB - MICROBIOLOGY O RDERABLES [facility] [address] [place] [address] * XR CHEST 1VW PORTABLE (06/26/2021 10:16 AM CDT) Anatomical Region Laterality Modality Chest Radiographic Rowena ging 06/26/2021 10:3 3 AM CDT Narrative 06/26/2021 10:33 AM CDT Portable AP Chest x-ray INDICATION: Shortness of breath COMPARISON: 02/23/2011 FINDINGS: There is no focal infiltrate or consolidation. Heart size is normal. No evidence of pneumothorax or pleural effusion. ??A mass is not detected. *Reading Radiologist: Wicho Almanzar on 06/26/2021 at 10:33 AM Procedure Note Wicho Almanzar MD - 06/26/2021 Portable AP Chest x-ray INDICATION: Shortness of breath COMPARISON: 02/23/2011 FINDINGS: There is no focal infiltrate or consolidation. Heart size is normal. No evidence of pneumothorax or pleural effusion. A mass is not detected. *Reading Radiologist: Wicho Almanzar on 06/26/2021 at 10:33 AM Yusuf Montaño MD DIAGNOSTIC IMAGING O RDERABLES * (ABNORMAL) COMPREHENSIVE METABOLIC PANEL (06/26/2021 10:03 AM CDT) Only the most recent of3 resultswithin the time period is included. Glucose 88 70 - 105 mg/dL 06/26/2021 10:26 AM CDT [facility] Sodium 140 136 - 145 mmol/L 06/26/2021 10:26 AM CDT [facility] Potassium 4.4 3.5 - 5.1 mmol/L 06/26/2021 10:26 AM CDT [facility] Chloride 108(H) 98 - 107 mmol/L 06/26/2021 10:26 AM CDT [facility] CO2 21(L) 23 - 31 mmol/L 06/26/2021 10:26 AM CDT [facility] Calcium 9.7 8.4 - 10.4 mg/dL 06/26/2021 10:26 AM CDT [facility] Anion Gap 11 8 - 18 mmol/L 06/26/2021 10:26 AM CDT [facility] BUN 9 7 - 18.7 mg/dL 06/26/2021 10:26 AM CDT [facility] Creatinine 0.84 0.57 - 1.11 mg/dL 06/26/2021 10:26 AM CDT [facility] Alkaline Phosphatase 44 40 - 150 U/L 06/26/2021 10:26 AM CDT [facility] ALT 18 0 - 61 U/L 06/26/2021 10:26 AM CDT [facility] AST 26 5 - 34 U/L 06/26/2021 10:26 AM CDT [facility] Protein Total 8.4(H) 6.4 - 8.3 gm/dL 06/26/2021 10:26 AM CDT [facility] Albumin 4.9 3.5 - 5.2 gm/dL 06/26/2021 10:26 AM CDT [facility] Bilirubin Total 0.6 0.2 - 1.2 mg/dL 06/26/2021 10:26 AM CDT [facility] eGFR by CKD-EPI >90 >=90 mL/min/1.7 3 m2 06/26/2021 10:26 AM CDT [facility] Blood BLOOD SPECIMEN / Unknown Venipuncture / Unknown 06/26/2021 10:03 AM CDT 06/26/2021 10:07 AM CDT [facility] - 06/26/2021 10:26 AM CDT eGFR result was calculated using the updated CKD-EPI Creatinine Equations (2020). Prior to go live 2021 the eGFR was calculated using the MDRD calculation. Please note Reference Range change. Yusuf Montaño MD LAB - CHEMISTRY [facility]MON[facility] Address City/State/ZIP Co de Phone Number [facility] [address] [place] [address] * CK BLOOD (06/26/2021 10:03 AM CDT) CK 86 29 - 168 U/L 06/26/2021 10:26 AM CDT [facility] Blood BLOOD SPECIMEN / Unknown Venipuncture / Unknown 06/26/2021 10:03 AM CDT 06/26/2021 10:07 AM CDT Yusuf Montaño MD LAB - CHEMISTRY RAYMOND DELONG [facility] [address] [place] [address] * (ABNORMAL) CBC W AUTO DIFFERENTIAL (05/29/2021 2:52 AM MUSIC SPECIALIST) Only the most recent of2 resultswithin the time period is included. WBC 7.9 4.4 - 10.7 x10E9/L 05/29/2021 3:00 AM [facility] WBC Corrected 05/29/2021 3:00 AM [facility] RBC 4.54 3.80 - 5.20 x10E12/L 05/29/2021 3:00 AM [facility] Hemoglobin 13.1 12.0 - 15.6 gm/dL 05/29/2021 3:00 AM [facility] Hematocrit 38.6 35.9 - 45.5 % 05/29/2021 3:00 AM [facility] MCV 85.0 80.7 - 98.3 fl 05/29/2021 3:00 AM [facility] MCH 28.9 26.7 - 34.0 pg 05/29/2021 3:00 AM [facility] MCHC 33.9 30.8 - 35.9 gm/dL 05/29/2021 3:00 AM [facility] Platelet Count 217 153 - 416 x10E9/L 05/29/2021 3:00 AM [facility] RDW-CV 12.0(L) 12.1 - 14.9 % 05/29/2021 3:00 AM [facility] MPV 10.5 9.4 - 12.9 fl 05/29/2021 3:00 AM [facility] Neutrophils % 59.4 44.0 - 73.0 % 05/29/2021 3:00 AM [facility] Lymphocytes % 31.9 20.0 - 43.0 % 05/29/2021 3:00 AM [facility] Monocytes % 7.6 5.0 - 13.0 % 05/29/2021 3:00 AM [facility] Eosinophils % 0.3 0.0 - 6.0 % 05/29/2021 3:00 AM [facility] Basophils % 0.5 0.0 - 2.0 % 05/29/2021 3:00 AM [facility] Immature Granulocytes 0.3 0 - 1 % 05/29/2021 3:00 AM [facility] Neutrophil Absolute 4.73 2.01 - 7.14 x10E9/L 05/29/2021 3:00 AM [facility] Lymphocytes Absolute 2.53 1.07 - 3.94 x10E9/L 05/29/2021 3:00 AM [facility] Monocytes Absolute 0.60 0.26 - 1.07 x10E9/L 05/29/2021 3:00 AM [facility] Eosinophils Absolute 0.02 0 - 0.47 x10E9/L 05/29/2021 3:00 AM [facility] Basophils Absolute 0.04 0 - 0.08 x10E9/L 05/29/2021 3:00 AM [facility] Immature Granulocytes Absolute 0.02 0.00 - 0.06 x10E9/L 05/29/2021 3:00 AM [facility] nRBC Auto 0 /100 WBC 05/29/2021 3:00 AM [facility] Blood BLOOD SPECIMEN / Unknown Venipuncture / Unknown 05/29/2021 2:52 AM MUSIC SPECIALIST 05/29/2021 2:57 AM MUSIC SPECIALIST Rosa Mendoza MD LAB - HEMATOLOGY ORD ERABLES [facility] [address] [place] [address] * CT LUMBAR SPINE W CONTRAST (04/22/2021 10:19 PM MUSIC SPECIALIST) Anatomical Region Laterality Modality Spine Computed Tomogra phy 04/23/2021 9:03 AM MUSIC SPECIALIST Impressions 04/23/2021 9:18 AM MUSIC SPECIALIST SKIN THICKENING AND INFLAMMATORY STRANDING IN THE SUBCUTANEOUS FAT ADJACENT TO THE SPINAL STIMULATOR GENERATOR CONSISTENT WITH CELLULITIS. FOUR ROUND METALLIC FOREIGN BODIES SITUATED WITHIN THE POSTERIOR EPIDURAL SPACE AT L5 TO THE LEFT OF MIDLINE. NO SITES OF CANAL, LATERAL RECESS, OR FORAMINAL STENOSIS. Edited by Angélica Joshi on 04/23/2021 9:13 AM *Reading Radiologist: Alba Atkins on 04/23/2021 at 9:18 AM Narrative 04/23/2021 9:[address] LUMBAR SPINE WITH INTRAVENOUS CONTRAST INDICATION: Severe acute worsening low back pain and lumbosacral neuritis. COMPARISON: None available. TECHNIQUE: Preliminary interpretation was provided by [facility]. Multiple axial CT images of the lumbar spine were obtained following 80 cc Isovue-370 intravenous contrast. Coronal and sagittal multiplanar reformatted images were created. FINDINGS: Skin thickening and inflammatory stranding noted within the subcutaneous fat adjacent to the generator for the spinal stimulator compatible with a cellulitis. The visualized portion of the spinal stimulator is intact and enters the posterior epidural space at L1-L2 and extends cranially into the thorax. The cranial extent of the stimulator is not included in the [id number] of this study. Four small round metallic foreign bodies are noted within the posterior epidural space at L5 to the left of midline. Anatomic osseous alignment. No acute or subacute fracture. No periostitis or cortical destruction. Mild disc bulges L3 to S1. No focal disc herniations. Facet joints unremarkable. No sites of canal, lateral recess, or foraminal stenosis. Procedure Note Alba Atkins MD - 04/23/2021 CT LUMBAR SPINE WITH INTRAVENOUS CONTRAST INDICATION: Severe acute worsening low back pain and lumbosacral neuritis. COMPARISON: None available. TECHNIQUE: Preliminary interpretation was provided by [facility]. Multiple axial CT images of the lumbar spine were obtained following 80 cc Isovue-370 intravenous contrast. Coronal and sagittal multiplanar reformatted images were created. FINDINGS: Skin thickening and inflammatory stranding noted within the subcutaneous fat adjacent to the generator for the spinal stimulator compatible with a cellulitis. The visualized portion of the spinal stimulator is intact and enters the posterior epidural space at L1-L2 and extends cranially into the thorax. The cranial extent of the stimulator is not included in the tqnvy-[id number] of this study. Four small round metallic foreign bodies are noted within the posterior epidural space at L5 to the left of midline. Anatomic osseous alignment. No acute or subacute fracture. No periostitis or cortical destruction. Mild disc bulges L3 to S1. No focal disc herniations. Facet joints unremarkable. No sites of canal, lateral recess, or foraminal stenosis. IMPRESSION SKIN THICKENING AND INFLAMMATORY STRANDING IN THE SUBCUTANEOUS FAT ADJACENT TO THE SPINAL STIMULATOR GENERATOR CONSISTENT WITH CELLULITIS. FOUR ROUND METALLIC FOREIGN BODIES SITUATED WITHIN THE POSTERIOR EPIDURAL SPACE AT L5 TO THE LEFT OF MIDLINE. NO SITES OF CANAL, LATERAL RECESS, OR FORAMINAL STENOSIS. Edited by Angélica Joshi on 04/23/2021 9:13 AM *Reading Radiologist: Alba Atkins on 04/23/2021 at 9:18 AM Elvin Curran MD CT ORDERABLES * HCG BLOOD QUALITATIVE (04/22/2021 5:02 PM MUSIC SPECIALIST) HCG Qual Serum Negative Negative 04/22/2021 5:40 PM MUSIC SPECIALIST [facility] Blood BLOOD SPECIMEN / Unknown Venipuncture / Unknown 04/22/2021 5:02 PM MUSIC SPECIALIST 04/22/2021 5:25 PM MUSIC SPECIALIST Elvin Curran MD LAB - CHEMISTRY RAYMOND DELONG Performing Organization Address City/[facility]/ZIP Co de Phone Number [facility] [address] [place] [address] * CULTURE STREP GROUP A (10/10/2020 10:19 AM CDT) Only the most recent of2 resultswithin the time period is included. Pathologist [facility] Culture Negative for beta-hemolytic Streptococcus Group A JARRETT 10/12/2020 6:26 AM CDT [facility] MICROBIOLOGY Microbiology ENTIRE THROAT (SURFACE REGION OF NECK) / Unknown Collection / Unknown 10/10/2020 10:19 AM CDT 10/10/2020 10:19 AM CDT Ana Manuel MEAT INSPECTOR-MAINTENANCE PARTS TECHNICIAN LAB - MICRO BIOLOGY ORDERABLES Performing Organization Address City/[facility]/ZIP Co de Phone Number [facility] MICROBIOLOGY [address] [place], [place] [id number] [place] [address] * SARS-COV-2 (COVID-19) INTERNAL (10/10/2020 9:51 AM CDT) COVID-19 PCR Not detected Not detected 10/11/2020 1:41 AM CDT [facility] MICROBIOLOGY Microbiology SPECIMEN FROM NASOPHARYNGEAL STRUCTURE / Unknown Collection / Unknown 10/10/2020 9:51 AM CDT 10/10/2020 9:51 AM CDT Narrative [facility]CRO[facility] - 10/11/2020 1:41 AM CDT This nucleic acid amplification assay performance was validated by [facility]. This test has been authorized by the Food and Drug administration (FDA)under an Emergency??Use Authorization (EUA). This test has been validated in accordance with the FDA's guidance document Policy for Diagnostic Testing in Laboratories Certified to perform High Complexity Testing under CLIA prior to Emergency Use Authorization for Coronavirus Disease-2019 during the Public Health Emergency issued on May 25, 2019. FDA independent review of this validation is pending. This test is only authorized for the duration of time the declaration that circumstances exist justifying the authorization of emergency use of in vitro diagnostic tests for detection of SARS-CoV-2 virus and/or diagnosis of COVID-19 infection under section 564(b)(1) of the Act, 21 U.S.C 360bbb-3 (b)(1), unless the authorization is terminated or revoked sooner. Fact Sheets for this EUA assay are available upon request. Ana Manuel MEAT INSPECTOR-MAINTENANCE PARTS TECHNICIAN LAB - MICRO BIOLOGY ORDERABLES [facility] [address] [place] [address], [facility] [phone] * STREP A SCREEN - POCT (IP) URGENT CARE (10/10/2020 9:49 AM CDT) Strep A Rapid POCT Negative Negative [facility] QC Verified Yes Yes [facility] Throat ENTIRE THROAT (SURFACE REGION OF NECK) / Unknown 10/10/2020 9:49 AM CDT Ana Milena Manuel MEAT INSPECTOR-MAINTENANCE PARTS TECHNICIAN LAB - POINT OF CARE ORDERABLES [facility] [address] [place] [address] * PAP IG LB CT+NG+TV RFLX HPV ASCU (07/21/2020 10:17 AM CDT) Diagnosis [facility] INSURANCE BILL Comment:NEGATIVE FOR INTRAEP ITHELIAL LESION OR MALIGNANCY. Specimen Adequacy [facility] INSURANCE BILL Comment: Satisfactory for evaluation. ??Endocervical and/or squamous metaplastic cells (endocervical component) are present. Clinician Provided ICD10 [facility] INSURANCE BILL Comment: Z01.419 Z11.3 Z20.2 Z30.433 Performed by [facility] INSURANCE BILL Comment:Merna Sanderson , Health Promotion Officer (ASCP) Comment . [facility] INSURANCE BILL Note [...] Resulting Agency Comment Lab Testing performed at: [facility] ??[place] [phone] Omar Irwin MD LAB - PATHOLOGY/CYT OLOGY ORDERABLES [facility] INSURANCE BILL [address] [place] [address] * VAGINITIS PLUS (BV CA CT NG TRICH) (PO REF) (05/05/2014 2:09 PM MUSIC SPECIALIST) Only the most recent of3 resultswithin the time period is included. Atopobium vaginae Low - 0 Score [facility] INSURANCE BILL BVAB 2 Low - 0 Score [facility] INSURANCE BILL Megashaera Low - 0 Score [facility] INSURANCE BILL Comment: Calculate total score by adding the 3 individual bacterial vaginosis (BV) marker scores together. Total score is interpreted as follows: ? . Total score 0-1: Indicates the absence of BV. Total score ?? 2: Indeterminate for BV. Additional clinical data should ? be evaluated to establish a diagnosis. Total score 3-6: Indicates the presence of BV. ? . This test was developed and its performance characteristics determined by [facility]. ??It has not been cleared or approved by the Food and Drug Administration. ??The FDA has determined that such clearance or approval is not necessary. Riya albicans JERARDO Negative Negative [facility] INSURANCE BILL Riya glabrata JERARDO Negative Negative [facility] INSURANCE BILL Comment: This test was developed and its performance characteristics determined by [facility]. ??It has not been cleared or approved by the Food and Drug Administration. ??The FDA has determined that such clearance or approval is not necessary. Trichomonas vaginalis by JERARDO Negative Negative [facility] INSURANCE BILL Chlamydia Trachomatis JERARDO Negative Negative [facility] INSURANCE BILL GC JERARDO Negative Negative [facility] INSURANCE BILL ENTIRE VAGINA / Unknown 05/05/2014 2:09 PM MUSIC SPECIALIST 05/05/2014 9:32 PM MUSIC SPECIALIST Narrative Resulting Agency Comment [facility] [address] ??[facility] [phone] Priscila Tan APRN-MAINTENANCE PARTS TECHNICIAN LAB - MICROBIOLOG Y ORDERABLES Performing Organization Address City/[facility] Co de Phone Number [facility] INSURANCE BILL * FERRITIN (05/23/2011 3:35 PM MUSIC SPECIALIST) Ferritin 51 10 - 140 ng/ml [facility] Blood specimen (specimen) BLOOD SPECIMEN / Unknown 05/23/2011 3:35 PM MUSIC SPECIALIST 05/23/2011 5:14 PM MUSIC SPECIALIST Juana Thomas MD LAB - CHEMISTRY RAYMOND DELONG [facility] [address] [place] [address] * XR CHEST PA/LAT (02/23/2011 8:43 AM MUSIC SPECIALIST) Anatomical Region Laterality Modality Chest Radiographic Rowena ging 02/23/2011 8:48 AM MUSIC SPECIALIST Impressions 02/23/2011 8:48 AM MUSIC SPECIALIST No acute disease in the chest. Narrative 02/23/2011 8:48 AM MUSIC SPECIALIST CHEST - TWO VIEWS INDICATION: Cough and sore throat COMPARISON: None. FINDINGS: Frontal and lateral views of the chest show the lungs to be clear of confluent infiltrates. There are no pleural effusions.. ??The heart size is normal. ?? Procedure Note Joselito Olivas MD - 02/23/2011 CHEST - TWO VIEWS INDICATION: Cough and sore throat COMPARISON: None. FINDINGS: Frontal and lateral views of the chest show the lungs to be clear of confluent infiltrates. There are no pleural effusions.. The heart size is normal. IMPRESSION No acute disease in the chest. Angel Baird DO DIAGNOSTIC IMAGING O RDERABLES * MRI ANKLE WO CONT [[id number]] (02/01/2010 8:11 AM MUSIC SPECIALIST) Anatomical Region Laterality Modality Ankle / Foot, Lower Extremity Ma gnetic Resonance 02/01/2010 8:28 AM MUSIC SPECIALIST Impressions 02/01/2010 10:41 AM MUSIC SPECIALIST FOCAL TENDINOSIS AND A LONGITUDINAL SPLIT TEAR OF THE PERONEUS BREVIS ALONG THE LATERAL SURFACE OF THE CALCANEUS. Narrative 02/01/2010 10:41 AM MUSIC SPECIALIST MRI LEFT ANKLE WITHOUT CONTRAST CLINICAL INDICATION: Left ankle pain, swelling, and limited range of motion. TECHNIQUE: Standard MR pulse sequences of the left ankle were obtained in all three orthogonal planes without contrast. FINDINGS: There is tendinosis and a longitudinal split tear involving the peroneus brevis along the lateral surface of the calcaneus. Signal of the peroneus longus tendon is within normal limits. Signal of the medial and anterior tendons are within normal limits. The anterior and posterior tibiofibular ligaments, anterior posterior talofibular ligaments, calcaneofibular ligament, and deltoid ligaments are intact. There are no osteochondral lesions. There are no sites of bone marrow edema. Signal of the Achilles tendon and plantar aponeurosis are within normal limits. Signal of the sinus tarsi and tarsal tunnel are within normal limits. Procedure Note Alba Atkins MD - 02/01/2010 MRI LEFT ANKLE WITHOUT CONTRAST CLINICAL INDICATION: Left ankle pain, swelling, and limited range of motion. TECHNIQUE: Standard MR pulse sequences of the left ankle were obtained in all three orthogonal planes without contrast. FINDINGS: There is tendinosis and a longitudinal split tear involving the peroneus brevis along the lateral surface of the calcaneus. Signal of the peroneus longus tendon is within normal limits. Signal of the medial and anterior tendons are within normal limits. The anterior and posterior tibiofibular ligaments, anterior posterior talofibular ligaments, calcaneofibular ligament, and deltoid ligaments are intact. There are no osteochondral lesions. There are no sites of bone marrow edema. Signal of the Achilles tendon and plantar aponeurosis are within normal limits. Signal of the sinus tarsi and tarsal tunnel are within normal limits. IMPRESSION FOCAL TENDINOSIS AND A LONGITUDINAL SPLIT TEAR OF THE PERONEUS BREVIS ALONG THE LATERAL SURFACE OF THE CALCANEUS. Matteo Espinoza MD MR ORDERABLES * XR FOOT 3+ VW LEFT (08/04/2009 11:53 AM CDT) Anatomical Region Laterality Modality Ankle / Foot Radiographic Rowena ging 08/04/2009 12:2 6 PM CDT Impressions 08/04/2009 12:27 PM CDT Negative examination. Narrative 08/04/2009 12:27 PM CDT History: Foot pain. Left foot 3 views. Findings: The bones are anatomically aligned. There is no fracture or dislocation. The joints are normal. Procedure Note Lashell Gutierrez MD - 08/04/2009 History: Foot pain. Left foot 3 views. Findings: The bones are anatomically aligned. There is no fracture or dislocation. The joints are normal. IMPRESSION Negative examination. Yohan Ricks MD DIAGNOSTIC IMAGING O RDERABLES * (ABNORMAL) GENERAL HEALTH PANEL (05/13/2009 2:19 PM MUSIC SPECIALIST) Glucose 100(H) 65 - 99 mg/dL [facility] ACCOUNT BILL BUN 15 5 - 26 mg/dL [facility] ACCOUNT BILL Creatinine 0.69 0.42 - 0.75 mg/dL [facility] ACCOUNT BILL eGFR by MDRD NOT AVAIL. mL/min/1. 73 [facility] ACCOUNT BILL Comment: Unable to calculate GFR. ??Age and/or sex not provided or age <18 years old. eGFR by MDRD NOT AVAIL. mL/min/1. 73 [facility] ACCOUNT BILL Comment: Unable to calculate GFR. ??Age and/or sex not provided or age <18 years old. Note: ??Persistent reduction for 3 months or more in an eGFR <60 mL/min/1.73 m2 defines CKD. ??Patients with eGFR values >/=60 mL/min/1.73 m2 may also have CKD if evidence of persistent proteinuria is present. Additional information may be found at [email or web address]. BUN/Creatinine Ratio 22 8 - 27 [facility] ACCOUNT BILL Sodium 142 135 - 145 mmol/L [facility] ACCOUNT BILL Potassium 4.9 3.5 - 5.2 mmol/L [facility] ACCOUNT BILL Chloride 106 97 - 108 mmol/L [facility] ACCOUNT BILL CO2 23 20 - 32 mmol/L [facility] ACCOUNT BILL Calcium 9.5 8.9 - 10.4 mg/dL [facility] ACCOUNT BILL Protein Total 6.7 6.0 - 8.5 g/dL [facility] ACCOUNT BILL Albumin 4.6 3.5 - 5.5 g/dL [facility] ACCOUNT BILL Globulin Total 2.1 1.5 - 4.5 g/dL [facility] ACCOUNT BILL Albumin/Globulin Ratio 2.2 1.1 - 2.5 [facility] ACCOUNT BILL Bilirubin Total 0.2 0.1 - 1.2 mg/dL [facility] ACCOUNT BILL Alkaline Phosphatase 157 70 - 490 IU/L [facility] ACCOUNT BILL AST 18 0 - 40 IU/L [facility] ACCOUNT BILL ALT 9 0 - 40 IU/L [facility] ACCOUNT BILL TSH 1.760 0.450 - 4.500 uIU/mL [facility] ACCOUNT BILL WBC 6.1 4.0 - 9.1 x10E3/uL [facility] ACCOUNT BILL RBC 4.42 3.91 - 5.26 x10E6/uL [facility] ACCOUNT BILL Hemoglobin 13.3 11.7 - 15.0 g/dL [facility] ACCOUNT BILL Hematocrit 38.2 34.8 - 43.5 % [facility] ACCOUNT BILL MCV 86 80 - 92 fL [facility] ACCOUNT BILL MCH 30.0 27.3 - 31.7 pg [facility] ACCOUNT BILL MCHC 34.8 33.0 - 36.0 g/dL [facility] ACCOUNT BILL RDW 12.7 12.3 - 14.5 % [facility] ACCOUNT BILL Platelet Count 215 150 - 349 x10E3/uL [facility] ACCOUNT BILL Granulocytes % 42 40 - 70 % [facility] ACCOUNT BILL Lymphocytes % 39 20 - 47 % [facility] ACCOUNT BILL Monocytes % 10 3 - 10 % [facility] ACCOUNT BILL Eosinophils % 8(H) 0 - 4 % [facility] ACCOUNT BILL Basophils % 1 0 - 2 % [facility] ACCOUNT BILL Immature Cells NOT AVAIL. [facility] ACCOUNT BILL Granulocytes Absolute 2.6 1.5 - 5.6 x10E3/uL [facility] ACCOUNT BILL Lymphocytes Absolute 2.4 1.1 - 3.1 x10E3/uL [facility] ACCOUNT BILL Monocytes Absolute 0.6 0.1 - 0.7 x10E3/uL [facility] ACCOUNT BILL Eosinophils Absolute 0.5(H) 0.0 - 0.4 x10E3/uL [facility] ACCOUNT BILL Basophils Absolute 0.1 0.0 - 0.3 x10E3/uL [facility] ACCOUNT BILL Immature Granulocytes NOT AVAIL. [facility] ACCOUNT BILL Immature Granulocytes Absolute NOT AVAIL. [facility] ACCOUNT BILL nRBC NOT AVAIL. [facility] ACCOUNT BILL Comment Hematology NOT AVAIL. [facility] ACCOUNT BILL BLOOD SPECIMEN / Unknown 05/13/2009 2:19 PM MUSIC SPECIALIST 05/13/2009 10:29 PM MUSIC SPECIALIST Narrative [facility] ACCOUNT BILL - 05/14/2009 6:15 AM MUSIC SPECIALIST Additional Result Information EGFR ESTIMATED ML/MIN BLOOD ([facility]): RESULT NOT AVAILABLE IF -CHINESE ML/MIN BLOOD ([facility]): RESULT NOT AVAILABLE IMMATURE CELLS ([facility]): RESULT NOT AVAILABLE IMMATURE GRANULOCYTES ([facility]): RESULT NOT AVAILABLE IMMATURE GRANS (ABS) ([facility]): RESULT NOT AVAILABLE NRBC ([facility]): RESULT NOT AVAILABLE HEMATOLOGY COMMENTS: ??BLOOD,URINE ([facility]): RESULT NOT AVAILABLE Resulting Agency Comment [facility] [address] ??[facility] [phone] Isabella Spann MD LAB - CHEMISTRY ORD ERABLES [facility] ACCOUNT BILL * XR SACRUM AND COCCYX (02/16/2009 4:42 PM MUSIC SPECIALIST) Anatomical Region Laterality Modality Spine Radiographic Rowena ging 02/17/2009 7:58 AM MUSIC SPECIALIST Impressions 02/17/2009 8:51 AM MUSIC SPECIALIST NO FRACTURE. Narrative 02/17/2009 8:51 AM MUSIC SPECIALIST INDICATION: Fall. FINDINGS: Three views of the sacrum and coccyx on 02/16/2009. Bone density is normal. No fracture. No dislocation. Procedure Note Lazarus King MD - 02/17/2009 INDICATION: Fall. FINDINGS: Three views of the sacrum and coccyx on 02/16/2009. Bone density is normal. No fracture. No dislocation. IMPRESSION NO FRACTURE. Yohan Ricks MD DIAGNOSTIC IMAGING O RDERABLES * US ABDOMEN LIMITED (05/30/2008 7:21 AM MUSIC SPECIALIST) Anatomical Region Laterality Modality Abdomen Ultrasound 05/30/2008 9:16 AM MUSIC SPECIALIST Impressions 05/30/2008 9:19 AM MUSIC SPECIALIST Unremarkable right upper quadrant ultrasound. Narrative 05/30/2008 9:19 AM MUSIC SPECIALIST Exam: Limited abdominal ultrasound. HISTORY: Epigastric pain. FINDINGS: Transabdominal ultrasound of the right upper quadrant was performed. The liver is of normal echogenicity without focal masses or intrahepatic ductal dilatation. The gallbladder demonstrates no gallstones wall thickening or pericholecystic fluid and the common bile duct measures 2 mm which is within normal limits. The region of the pancreas and right kidney are also unremarkable. Procedure Note Omar Hawley MD - 05/30/2008 Exam: Limited abdominal ultrasound. HISTORY: Epigastric pain. FINDINGS: Transabdominal ultrasound of the right upper quadrant was performed. The liver is of normal echogenicity without focal masses or intrahepatic ductal dilatation. The gallbladder demonstrates no gallstones wall thickening or pericholecystic fluid and the common bile duct measures 2 mm which is within normal limits. The region of the pancreas and right kidney are also unremarkable. IMPRESSION Unremarkable right upper quadrant ultrasound. Yohan Ricks MD US ORDERABLES * XR HIPS BILATERAL 2 VW W AP PELVIS (12/07/2007 12:25 PM CDT) Anatomical Region Laterality Modality Pelvis, Lower Extremity Other 12/07/2007 12:2 5 PM CDT Narrative 12/07/2007 1:42 PM CDT History- Fell off horse a few days ago. Pelvis AP and both hips 2 views each. Findings- The bones are anatomically aligned. There is no fracture or dislocation. The joints are normal. Incidental spina bifida occulta is seen at S1. Impression- Negative examination. ? Reading RadiologistKrysta GUTIERREZ MD - ? Releasing Eric GUTIERREZ MD - ? Released Date Time- 12/07/07 1342 ? Mat Worker- LETY - ? ADM- YOHAN RICKS ? ATT- YOHAN RICKS REF- YOHAN RICKS ? CON- PCP- YOHAN RICKS ? SCP- Procedure Note Lashell Gutierrez MD - 12/07/2007 History- Fell off horse a few days ago. Pelvis AP and both hips 2 views each. Findings- The bones are anatomically aligned. There is no fracture or dislocation. The joints are normal. Incidental spina bifida occulta is seen at S1. Impression- Negative examination. Reading RadiologistKrysta GUTIERREZ MD - Releasing Radiologist- LASHELL GUTIERREZ MD - Released Date Time- 12/07/07 1342 Mat Worker- AKMayelin - ADM- HEATHER,YOHAN Mas ATTKrysta RICKS,YOHAN Mas REF- HEATHER,YOHAN Mas CON- PCP- HEATHER,YOHAN Mas [facility]- Yohan Ricks MD DIAGNOSTIC IMAGING O RDERABLES * FEMUR - RIGHT (12/02/2007 7:08 PM CDT) Anatomical Region Laterality Modality Lower Extremity Radiographic Rowena ging 12/03/2007 8:22 AM CDT Impressions 12/03/2007 8:23 AM CDT No fracture or other abnormality identified. Narrative 12/03/2007 8:23 AM CDT Right femur: HISTORY: Fall off a horse, injury with pain. Two views of the right femur were obtained on 12/02/2007. There is no fracture, dislocation or bone destruction. Procedure Note Tee Abbott MD - 12/03/2007 Right femur: HISTORY: Fall off a horse, injury with pain. Two views of the right femur were obtained on 12/02/2007. There is no fracture, dislocation or bone destruction. IMPRESSION No fracture or other abnormality identified. Bennett De Jesus MD DIAGNOSTIC IMAGING O RDERABLES * STREP A SCREEN - POINT OF CARE (06/28/2007 12:33 PM CDT) Strep A Rapid POCT pos NEGATIVE - POSITIVE Strep A Internal Control pos NEGATIVE - POSITIVE ENTIRE THROAT (SURFACE REGION OF NECK) / Unknown Isabella Spann MD LAB - POINT OF CARE ORDERABLES * GROSS + MICRO EXAM (05/24/2005 7:30 AM MUSIC SPECIALIST) Pathologist [facility] Result CASE NUMBER [id number] [facility] LAB PATH REPORT Comment: ORDERING PHYSICIAN ??JEWEL CARDOZO SPECIMEN TYPE ?Appendix CLINICAL HISTORY ? The patient is an 9-year-old girl with appendicitis. GROSS DESCRIPTION ? The specimen, labeled with the patient's name and appendix, is received fresh for gross and microscopic examination and consists of a 6.0 x 1.5 x 0.8 cm vermiform appendix with attached mesoappendix. ??The external surface is pink-aguilera, congested and partially surrounded by a yellow-white fibrinous exudate. ??There are no perforations. ??The appendiceal wall measures 2 mm in thickness. ??The appendiceal lumen measures 3 mm in diameter. ??The specimen is serially sectioned and patient accounting representative sections are submitted in cassette A . (CT/pg) MICROSCOPIC DESCRIPTION ? A) 1 H/E Sections or cross sectioned appendix show ulcerated appendiceal mucosa with full-thickness severe infiltration of mononuclear and polynuclear inflammatory cells. The inflammation obliterates the normal epithelium, lamina propria, muscularis mucosa, and submucosa with transmural extensions through the muscularis propria and into the serosa and mesoappendix. The serosa and mesoappendix are edematous, congested and contain a fibrinopurulent exudate. One of the submitted pieces shows an intact epithelium with prominent secondary lymphoid follicles. (JG/dm) DIAGNOSIS ? DIAGNOSIS ??APPENDIX, APPENDECTOMY ? - ACUTE SUPPURATIVE APPENDICITIS. This case has been personally reviewed and interpreted by the attending (teaching) pathologist. Mat Worker ? CECELIA HINOJOSA RESIDENT IN PATHOLOG Mihir Merino M.D. PATHOLOGIST ?Angélica Cruz M.D. ELECTRONICALLY LINDSEY ANGÉLICA CRUZ MISCELLANEOUS SAMPLES / Unknown 05/24/2005 7:30 AM MUSIC SPECIALIST 05/24/2005 9:26 AM MUSIC SPECIALIST Historical Provider MD LAB - PATHOLOGY/C YTOLOGY ORDERABLES [facility] LAB PATH REPORT Care Teams Claims Customer Service Representative Relationship Specialty Start Date End Date Berenice Sher PCP - General 02/13/23
--- OUTSIDE RECORDS SUMMARY | 2024-04-23 10:39 | XMS_ITS | Encounter Summary ---
Author Organization [facility] Healthcare Address [address] [place] [address] Care Team Providers Care Worship Leader Name Role Phone Riana Weaver MD Primary Care Provider [phone] Rose Mary Manuel RN Unavailable Unavailab Shelley Sullivan MD Unavailable Melquiades Parada MD Unavailable Joy Lara MD Primary Care Provider Chloe Sheldon PT Unavailable Pete Rivera MD Unavailable [phone] Bettina Alexander INTERNAL SALESPERSON Unavailable [phone] Berenice Sher NP Primary Care Provider [phone] Encounter Details Date Type Department Care Team (Late st Contact Info) Description 11/08/2018 Telephone [facility] [place] [facility] [address] [facility] [address] [place] [address] Melquiades Parada MD [address] [facility] [phone] [place] [address] Social History Tobacco Use Types [...] PM CDT 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 Author CCM Chronic Pain Care Plan Chronic Care Management Worsening( 10:10 AM REAL PROPERTY EVALUATOR) No Merna Rubio RN Note: Problem: Chronic [...] documented as of this encounter Care Teams Worship Leader Relationship Specialty [place] [address] [place] [address] PCP - General 06/25/16 03/05/20 Joy Lara MD [address] [place] [address] PCP - General Internal Medicine 03/06/20 10/06/22 Berenice Sher NP [address] [place] [address] PCP - General Family Medicine 10/07/22 Manuel, Sandra L., RN Registered Nurse 04/13/18 10/26/22 Shelley Colin MD Anesthesiologist Anesthesiology 08/02/19 10/26/22 Melquiades Parada MD Anesthesiologist Anesthesiology 08/02/19 10/26/22 Chloe Sheldon, PT [address] [facility] [address] [place] [address] Physical Therapist Physical Therapy 01/22/20 10/26/22 Pete Rivera MD [address] [place] [address] [address] Referring Physician Pain Management 06/02/21 Bettina Alexander, [facility] [address] [facility] [place] [facility] [phone] [place] [address] SHOP Outpatient Paralegal Instructor 06/03/21 06/07/21 Griffin Eller U Senior Auditor 10/27/22 Sadie Ventura Psychiatry 12/15/22 documented as of this encounter
--- OUTSIDE RECORDS SUMMARY | 2024-04-23 10:39 | XMS_ITS | Encounter Summary ---
Author Organization [facility] Healthcare Address [address] [place] [address] Care Team Providers Care Senior Asset Manager Name Role Phone Riana Weaver MD Primary Care Provider Rose Mary Manuel RN Unavailable Unavailab Shelley Sullivan MD Unavailable Melquiades Parada MD Unavailable [phone] Joy Lara MD Primary Care Provider [phone] Chloe Sheldon PT Unavailable [phone] Pete Rivera MD Unavailable [phone] Bettina Alexander DOORSHAKER Unavailable Berenice Sher NP Primary Care Provider Reason for Visit * Reason Onset Date Comments MED REFILLS 01/08/2020 Encounter Details Date Type Department Care Team (Late st Contact Info) Description 01/08/2020 Telephone [facility] [place] [facility] [address] 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 Author CCM Chronic Pain Care Plan Chronic Care Management Worsening( 10:10 AM WINDOWS INFRASTRUCTURE ENGINEER) No Merna Rubio RN Note: Problem: Chronic [...] stairs Contact your local community or senior skippers for information on exercise, fall prevention programs, or options for improving home safety. documented as of this encounter Visit Diagnoses Not on filedocumented in this encounter Additional Health Concerns Infection Onset Date Last Indicated Resolved Time COVID: Suspected 06/23/2020 06/23/2020 06/24/2020 8:58 AM CDT COVID: Suspected 11/19/2021 11/19/2021 11/19/2021 12:25 PM CDT documented as of this encounter Care Teams Senior Asset Manager Relationship Specialty [place] [address] [facility] [address] [place] [address] PCP - General 06/25/16 03/05/20 Joy Lara MD [address] [place] [address] PCP - General Internal Medicine 03/06/20 10/06/22 Berenice Sher, PILAR [address] [facility] [address] [place] [address] PCP - General Family Medicine 10/07/22 Rose Mary Manuel, RN Registered Nurse 04/13/18 10/26/22 Shelley Colin MD Anesthesiologist Anesthesiology 08/02/19 10/26/22 Melquiades Parada MD Anesthesiologist Anesthesiology 08/02/19 10/26/22 Chloe Sheldon, PT [address] [facility] [address] [place] [address] Physical Therapist Physical Therapy 01/22/20 10/26/22 Pete Rivera MD [address] [facility] [address] [place] [address] Referring Physician Pain Management 06/02/21 Bettina Alexander, DOORSHAKER [address] [facility] [place] Mailstop [phone] [place] [address] SHOP Outpatient Resaw Carriage Operator 06/03/21 06/07/21 Griffin Eller U Fan Blade Aligner 10/27/22 Sadie Ventura Psychiatry 12/15/22 documented as of this encounter
--- OUTSIDE RECORDS SUMMARY | 2024-04-23 10:39 | XMS_ITS | Encounter Summary ---
Author Organization [facility] Healthcare Address [address] [place] [address] Care Team Providers Care Data Acquisition Technician Name Role Phone Riana Weaver MD Primary Care Provider Rose Mary Manuel RN Unavailable Unavailab Shelley Sullivan MD Unavailable Melquiades Parada MD Unavailable [phone] Joy Lara MD Primary Care Provider [phone] Chloe Sheldon PT Unavailable Pete Rivera MD Unavailable Bettina Alexander SAAS ARCHITECT Unavailable Berenice Sher NP Primary Care Provider [phone] Reason for Visit * Reason Onset Date Comments Prior Auth 04/09/2019 Oxycodone 30mg Encounter Details Date Type Department Care Team (Late st Contact Info) Description 04/09/2019 Telephone [facility] at the [place] [facility] [address] [facility] [address] [place] [address] Melquiades Parada MD [address] [facility] [phone] [place] [address] Prior Auth (Oxycodone 30mg) Social History Tobacco Use Types Packs/Day Years [...] PM CDT 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 Author CCM Chronic Pain Care Plan Chronic Care Management Worsening( 10:10 AM MASTER RIGGER) No Merna Rubio, NATHAN Note: Problem: Chronic [...] stairs Contact your local community or senior bartlett for information on exercise, fall prevention programs, or options for improving home safety. documented as of this encounter Visit Diagnoses Not on filedocumented in this encounter Additional Health Concerns Infection Onset Date Last Indicated Resolved Time COVID: Suspected 06/23/2020 06/23/2020 06/24/2020 8:58 AM CDT COVID: Suspected 11/19/2021 11/19/2021 11/19/2021 12:25 PM CDT documented as of this encounter Care Teams Data Acquisition Technician Relationship Specialty [place] [address] [facility] [address] [place] [address] PCP - General 06/25/16 03/05/20 Joy Lara MD [address] [facility] [address] [place] [address] PCP - General Internal Medicine 03/06/20 10/06/22 Berenice Sher, PILAR [address] [facility] [address] [place], [place] [id number] PCP - General Family Medicine 10/07/22 Rose Mary Manuel, RN Registered Nurse 04/13/18 10/26/22 Shelley Colin MD Anesthesiologist Anesthesiology 08/02/19 10/26/22 Melquiades Parada MD Anesthesiologist Anesthesiology 08/02/19 10/26/22 Chloe Sheldon, PT [address] [facility] [address] [place], [place] [id number] Physical Therapist Physical Therapy 01/22/20 10/26/22 Pete Rivera MD [address] [facility] [address] [place], [place] [address] Referring Physician Pain Management 06/02/21 Btetina Alexander, SAAS ARCHITECT [address] [facility] ([facility] Mailstop [phone] [place] [address] SHOP Outpatient Hunting Sales Associate 06/03/21 06/07/21 Griffin LUISHarjit General House Worker 10/27/22 Sadie Ventura Psychiatry 12/15/22 documented as of this encounter
--- OUTSIDE RECORDS SUMMARY | 2024-04-23 10:39 | XMS_ITS | Encounter Summary ---
Author Organization [facility] Address [address] [place] [address] Care Team Providers Care Book Publisher Name Role Phone Joy Lara MD Primary Care Provider Berenice Sher Primary Care Provider Unavailabl e Encounter Details Date Type Department Care Team (Late st Contact Info) Description 02/22/2022 Telephone [facility] [address] [facility] [address] [place] [address] Griffin Eller MD [address] [facility] [place] [address] Social History Tobacco Use Types Packs/Day Years Used Date Smoking Tobacco: Never Smokeless Tobacco: Former Alcohol Use Standard Drinks/Week Comments Not Currently 0 (1 standard drink = 0.6 oz pur e alcohol) PHQ-2 Answer Date Recorded PHQ2 TOTAL SCORE 0 10/10/2020 Sex and Gender Information Value Date Recorded Sex Assigned at Female 01/05/2022 7:46 AM CDT Gender Identity Female 01/05/2022 7:46 AM CDT Sexual Orientation Straight 01/05/2022 7: 46 AM CDT documented as of this encounter Miscellaneous Notes * Telephone Encounter - Griffin Eller MD - 02/22/2022 8:18 AM CST Contacted patient regarding concern for driving. Phone went to voice mail. I do not recommend that she drives. On brief review of her Event monitor, she does have episodes of paroxysmal SVT. On her follow up appointment, we will discuss her options regarding this. Griffin Eller MD Preschool Education Director CODER documented in this encounter Plan of Treatment Not on file documented as of this encounter Visit Diagnoses Not on filedocumented in this encounter Care Teams Book Publisher Relationship Specialty Start Date End Date Joy Lara MD PCP - General Internal Medicine 04/22/21 02/12/23 Berenice Sher PCP - General 02/13/23 documented as of this encounter
--- OUTSIDE RECORDS SUMMARY | 2024-04-23 10:39 | XMS_ITS | Patient Health Record ---
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 Manager Name Role Phone Sadie Ventura Unavailable [phone] Thea Garsia Unavailable [phone] Migration, Provider Unavailable Unavailable Allergies Allergen (clinical drug ingredient) Drug/Non Drug Allergy documented on EMR Reaction Allergy Type Onset Date Status ADHESIVE TAPE (uncoded) Unknown Allergy 06/08/2023 Active TREE NUT (uncoded) Unknown Allergy 06/08/2023 Active Aloe Vera Unknown Drug Allergy 06/08/2023 Active fluorouracil Fluorouracil Unknown Drug Allergy 06/08/2023 Active oxcarbazepine OXcarbazepine Unknown Drug Allergy Active Adhesive Unknown Allergy 06/08/2023 Active Tree Nuts Unknown Allergy 06/08/2023 Active Results Component Value Reference Range Notes CBC W/ AUTO DIFF Reviewed date:05/09/2023 12:00:00 AM Interpretation: Performing Lab: Notes/Report: CMP, SERUM OR PLASMA Reviewed date:05/09/2023 12:00:00 AM Interpretation: Performing Lab: Notes/Report: HBA1C (HEMOGLOBIN A1C), BLOO D Reviewed date:05/09/2023 12:00:00 AM Interpretation: Performing Lab: Notes/Report: TSH + FREE T4, SERUM Reviewed date:05/09/2023 12:00:00 AM Interpretation: Performing Lab: Notes/Report: VITAMIN B12 + FOLATE, SERUM OR BLOOD Reviewed date:05/09/2023 12:00:00 AM Interpretation: Performing Lab: Notes/Report: VITAMIN D, 25-HYDROXY, TOTAL , SERUM Reviewed date:05/09/2023 12:00:00 AM Interpretation: Performing Lab: Notes/Report: DRUG SCREEN, 14 DRUGS (DETEC TIMED), URINE Reviewed date:05/25/2023 12:00:00 AM Interpretation: Performing Lab: Notes/Report: Amphetamine negative Barbiturates negative Benzodiazipine positive Buprenorphine negative Cocaine negative MDMA/Ectasy negative Methadone negative Methamphetamine negative Morphine negative note +BZO +THC Oxycodone negative Phenocyclidine negative THC positive UDT Reviewed date:09/05/2023 01:53:06 PM Interpretation:Abnormal Performing Lab: Notes/Report: Abnormal THC pos 0 - 50 ng/ml Cocaine neg Amphetamine neg Buprenorphine (BUP) neg Secobarbital (Bar) neg Oxazepam (BZO) neg 5-mkpfmfrjol-9,9-phiyesav-9, 3-diphenylpyrrolidine (EDDP) neg Methamphetamine (MET) neg Methylenedioxymethamphetamine (MDMA) neg Morphine (MOP 300/GWP6245) neg Methadone (MTD) neg Phencyclidine (PCP) neg Propoxyphene (PPX) neg Nortriptyline (TCA) neg UDT Reviewed date:12/26/2023 09:30:28 AM Interpretation: Performing Lab: Notes/Report: THC p 0 - 50 ng/ml Cocaine n 0 - 300 ng/ml Amphetamine n 0 - 1000 ng/ml Buprenorphine (BUP) n 0 - 10 ng/ml Secobarbital (Bar) n 0 - 300 ng/ml Oxazepam (BZO) n 0 - 300 ng/ml 1-apjjlltgeu-8,2-uybjkeuo-4, 3-diphenylpyrrolidine (EDDP) n 0 - 300 ng/ml Methamphetamine (MET) n 0 - 1000 ng/ml Methylenedioxymethamphetamine (MDMA) n 0 - 500 ng/ml Morphine (MOP 300/RND2830) n 0 - 300 ng/ml Methadone (MTD) n 0 - 300 ng/ml Phencyclidine (PCP) n 0 - 25 ng/ml Nortriptyline (TCA) n 0 - 1000 ng/ml Oxycodone n 0 - 300 ng/ml Reason For Referral No Information Medications Medication SIG (Take, Route, Frequency, Duration) Notes Start Date End Date Status FLUoxetine HCl 40 MG 2 capsule every mor trinidad Oral Once a day for 90 days Active FLUoxetine HCl 40 MG 2 capsule every mor [place]in[place] Orally Once a day for 90 days Active EPINEPHrine 0.3 MG/0.3ML Injection 06/08/2023 Active Meloxicam 15 MG 1 tablet Orally Once a day Active Vitamin B 12 100 MCG as directed Orally Active Atomoxetine HCl 40 MG 1 capsule Oral twi ce daily for 90 days 06/08/2023 07/01/2024 Active Methylphenidate HCl 10 MG 1.5 tablet Ora lly Twice a day 03/25/2024 Active Immunizations Vaccine Route Administration Date Status Comme nts DTaP Unknown 1996 Administered DTaP Unknown 1996 Administered DTaP Unknown 1996 Administered DTaP Unknown 11/18/1997 Administered Hep B, adult dosage Unknown 1996 Administered Hep B, adult dosage Unknown 1996 Administered Hep B, adult dosage Unknown 03/11/1997 Administered Hep B, unspecified formulation Unknown 1996 Admin istered Hib (PRP-D) Unknown 1996 Administered Influenza, seasonal, injecta ble, preservative free, 3 yrs and above Unknown 06/08/2016 Administered Influenza, unspecified formulation Unknown 03/12/2003 A dministered Influenza, unspecified formulation Unknown 03/27/2021 A dministered Influenza, unspecified formulation Unknown 03/27/2022 A dministered IPV Unknown 1996 Administered IPV Unknown 1996 Administered IPV Unknown 11/22/1997 Administered IPV Unknown 12/15/2000 Administered Meningococcal MCV4P Unknown 10/15/2008 Administered MMR Unknown 07/16/1997 Administered MMR Unknown 07/15/2000 Administered Novel Vibkfxltg-C1T8-21, nasal Unknown 02/05/2009 Admin istered Novel Eubadpuwq-I1R2-25, preservative free Unknown 06/08/2016 Administered Novel Joqaisgel-A0Y6-35, preservative free Unknown 04/25/2018 Administered Novel Hmgeinezb-O7F2-67, preservative free Unknown 03/05/2020 Administered Novel Muncsspge-F6R3-91, preservative free Unknown 03/17/2021 Administered Pfizer Biontech Covid-19 Vac cine 2nd dose Unknown 07/18/2020 Administered Pfizer Biontech Covid-19 Vac cine 2nd dose Unknown 08/08/2020 Administered Td (adult), adsorbed Unknown 08/19/2021 Administered Tdap Unknown 10/15/2008 Administered Social History Tobacco Use: Social History Observation Description Date Details (start date - stop date) Former Smoker NA - NA Sex Assigned At : Social History Observation Description Sex Assigned At Female Tobacco Control (Standard) Question Answer Notes Tobacco use: Former smoker How long has it been since you last smoked? 1-5 years Problems Problem Type SNOMED Code ICD Code Onset Dates Problem Status W/U Status Risk Notes Problem Severe recurrent major depression without psychotic features (92720573) Major depressive disorder, recurrent severe without psychotic features (F33.2) Active confirmed Problem Generalized anxiety disorder (28154063) Generalized anxiety disorder (F41.1) Active confirmed Problem Primary insomnia (9019461) Primary insomnia (F51.01) Active confirmed Problem Attention deficit hyperactivity disorder, predominantly inattentive type (12152311) Attention-deficit hyperactivity disorder, predominantly inattentive type (F90.0) Active confirmed Vital Signs Heart Rate 94 /min 12/26/2023 Height-cm 170.18 cm 12/26/2023 Blood pressure diastolic 84 mm Hg 12/26/2023 Weight-kg 77.11 kg 12/26/2023 Height 67.00 in 12/26/2023 Blood pressure systolic 120 mm Hg 12/26/2023 Weight 170 lbs 12/26/2023 BMI 26.62 kg/m2 12/26/2023 Encounters Encounter Location Date Provider Diagnosis [facility] [address] [facility] [address] [place] [address] 05/09/2023 Provider Migration Other assisted (current) drug therapy Z79.899 [facility] [address] [facility] [address] [place] [address] 05/11/2023 Thea Johnson Generalized anxiety disorder F41.1 ; Major depressive disorder, recurrent severe without psychotic features F33.2 and Attention-deficit hyperactivity disorder, predominantly inattentive type F90.0 [facility] [address] [place] [address] 05/15/2023 Provider Migration Attention-deficit hyperactivity disorder, predominantly inattentive type F90.0 [facility] [address] [place] [address] 05/25/2023 Sadie Audrey Primary insomnia F51.01 ; Other assisted (current) drug therapy Z79.899 ; Generalized anxiety disorder F41.1 ; Major depressive disorder, recurrent severe without psychotic features F33.2 and Attention-deficit hyperactivity disorder, predominantly inattentive type F90.0 [facility] [address] [place] [address] 06/08/2023 Sadie Audrey Generalized anxiety disorder F41.1 ; 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 ; Attention-deficit hyperactivity disorder, predominantly inattentive type F90.0 ; Primary insomnia F51.01 and Major depressive disorder, recurrent severe without psychotic features F33.2 [facility] [address] [place] [address] 06/13/2023 Provider Migration [facility] [address] [place] [address] 06/27/2023 Provider Migration Attention-deficit hyperactivity disorder, predominantly inattentive type F90.0 [facility] [address] [place] [address] 07/24/2023 Provider Migration Attention-deficit hyperactivity disorder, predominantly inattentive type F90.0 [facility] [address] [place] [address] 09/05/2023 Sadie Audrey Attention-deficit hyperactivity disorder, predominantly inattentive type F90.0 ; Major depressive disorder, recurrent severe without psychotic features F33.2 ; Generalized anxiety disorder F41.1 and Primary insomnia F51.01 [facility] [address] [place] [address] 12/26/2023 Sadie Audrey Attention-deficit hyperactivity disorder, predominantly inattentive type F90.0 ; Major depressive disorder, recurrent severe without psychotic features F33.2 ; Generalized anxiety disorder F41.1 and Primary insomnia F51.01 [facility] [address] [place] [address] 04/02/2024 Sadie Audrey Attention-deficit hyperactivity disorder, predominantly inattentive type F90.0 ; Major depressive disorder, recurrent severe without psychotic features F33.2 ; Generalized anxiety disorder F41.1 and Primary insomnia F51.01 [facility] [address] [place] [address] 05/08/2023 Provider Migration [facility], [facility] [address] [place] [address] 05/09/2023 Provider Migration [facility] [address] [place] [address] 05/15/2023 Provider Migration [facility], [facility] [address] [place] [address] 06/02/2023 Provider Migration [facility], [facility] [address] [place] [address] 06/13/2023 Provider Migration [facility], [facility] [address] [place] [address] 06/27/2023 Provider Migration [facility], [facility] [address] [place] [address] 07/20/2023 Provider Migration [facility], [facility] [address] [place] [address] 08/07/2023 Provider Migration [facility], [facility] [address] [place] [address] 08/12/2023 Provider [facility], [facility] [address] [place] [address] 08/13/2023 Provider Migration [facility], [facility] [address] [place] [address] 09/07/2023 [facility] [address] [place] [address] 09/07/2023 [facility] [address] [place] [address] 09/08/2023 [facility] [address] [place] [address] 08/30/2023 [facility] [address] [place] [address] 08/30/2023 [facility] [address] [place] [address] 09/12/2023 [facility] [address] [place] [address] 09/12/2023 [facility] [address] [place] [address] 09/13/2023 [facility] [address] [place] [address] 09/15/2023 [facility], [facility] [address] [place] [address] 09/15/2023 Sadie Ventura [facility], [facility] [address] [place] [address] 09/15/2023 Sadie Audrey [facility], [facility] [address] [place] [address] 09/26/2023 Sadie Ventura [facility], [facility] [address] [place] [address] 09/26/2023 Sadie Ventura Attention-deficit hyperactivity disorder, predominantly inattentive type F90.0 [facility], [facility] [address] [place] [address] 10/31/2023 Sadie Ventura Attention-deficit hyperactivity disorder, predominantly inattentive type F90.0 [facility], [facility] [address] [place] [address] 12/02/2023 Sadie Ventura Major depressive disorder, recurrent severe without psychotic features F33.2 and Attention-deficit hyperactivity disorder, predominantly inattentive type F90.0 [facility], [facility] [address] [place] [address] 12/03/2023 Sadie Audrey [facility], [facility] [address] [place] [address] 12/26/2023 Sadie Ventura Attention-deficit hyperactivity disorder, predominantly inattentive type F90.0 [facility], [facility] [address] [place] [address] 12/26/2023 Sadie Ventura [facility], [facility] [address] [place] [address] 12/26/2023 Sadie Ventura Attention-deficit hyperactivity disorder, predominantly inattentive type F90.0 [facility], [facility] [address] [place] [address] 01/08/2024 Sadie Audrey [facility], [facility] [address] [place] [address] 01/08/2024 Sadie Audrey [facility], [facility] [address] [place] [address] 01/08/2024 Sadie Audrey [facility], [facility] [address] [place] [address] 01/21/2024 Sadie Ventura Attention-deficit hyperactivity disorder, predominantly inattentive type F90.0 and Major depressive disorder, recurrent severe without psychotic features F33.2 [facility] [address] [facility] [address] [place] [address] 01/22/2024 Sadie Ventura Attention-deficit hyperactivity disorder, predominantly inattentive type F90.0 [facility] [address] [facility] [address] [place] [address] 01/22/2024 Sadie Ventura [facility] [address] [place] [address] 02/11/2024 Sadie Ventura [facility], [facility] [address] [facility] [address] [place] [address] 02/11/2024 Sadie Ventura [facility] [address] [facility] [address] [place] [address] 02/25/2024 Sadie Ventura Attention-deficit hyperactivity disorder, predominantly inattentive type F90.0 [facility] [address] [facility] [address] [place] [address] 03/24/2024 Sadie Ventura Attention-deficit hyperactivity disorder, predominantly inattentive type F90.0 [facility] [address] [facility] [address] [place] [address] 04/16/2024 Sadie Ventura [place] [address] [facility] [address] [place] [address] 04/16/2024 Sadie Ventura Assessments Encounter Date Diagnosis (ICD Code) Assessment Notes Treatment Notes Treatment Clinical Notes Section Notes 09/05/2023 Attention-defic it hyperactivity disorder, predominantly inattentive type (ICD-10 - F90.0) UDT done, send out. Continue Concerta 36 mg daily for ADHD. Stop atomoxetine. [place] PDMP report checked and consistent with prescription history, no controlled substance prescriptions from other providers. 09/26/2023 Attention-defic it hyperactivity disorder, predominantly inattentive type (ICD-10 - F90.0) 10/31/2023 Attention-defic it hyperactivity disorder, predominantly inattentive type (ICD-10 - F90.0) 12/02/2023 Major depressive disorder, recurrent severe without psychotic features (ICD-10 - F33.2) 12/26/2023 Attention-defic it hyperactivity disorder, predominantly inattentive type (ICD-10 - F90.0) Discussed risks/benefits/al ternatives to atomoxetine, including GI side effects, weight loss, irritability, constipation, sexual dysfunction, increase in blood pressure and liver damage. Patient denies any h/o cardiovascular disease, including hypertension, tachyarrhythmias. 12/26/2023 Attention-defic it hyperactivity disorder, predominantly inattentive type (ICD-10 - F90.0) 12/26/2023 Attention-defic it hyperactivity disorder, predominantly inattentive type (ICD-10 - F90.0) 01/21/2024 Attention-defic it hyperactivity disorder, predominantly inattentive type (ICD-10 - F90.0) 01/22/2024 Attention-defic it hyperactivity disorder, predominantly inattentive type (ICD-10 - F90.0) 02/25/2024 Attention-defic it hyperactivity disorder, predominantly inattentive type (ICD-10 - F90.0) 03/24/2024 Attention-defic it hyperactivity disorder, predominantly inattentive type (ICD-10 - F90.0) 04/02/2024 Attention-defic it hyperactivity disorder, predominantly inattentive type (ICD-10 - F90.0) Discussed risks/benefits/al ternatives to atomoxetine, including GI side effects, weight loss, irritability, constipation, sexual dysfunction, increase in blood pressure and liver damage. Patient denies any h/o cardiovascular disease, including hypertension, tachyarrhythmias. 1. ADHD stable -cont atomoxetine 40mg BID for ADHD management -cont methylphenidate 15mg BID PRN for ADHD support 2. MDD overall stable, situationally exacerbated secondary to health concern -cont fluoxetine 80mg daily -encouraged self care, journaling discussed headspace harmony 3. FREEMAN overall stable, situationally exacerbated secondary to health concern -cont fluoxetine 80mg daily -encourage non-pharmaceutic al treatments including deep breathing, grounding exercises, physical activity, healthy diet. 4. insomnia stable - KEEP YOUR BEDROOM DARK - GET LOTS OF NATURAL LIGHT IN THE MORNING. - DON'T WORK ON YOUR COMPUTER OR PHONE LATE AT NIGHT. - AVOID NAPS DURING THE DAY. - NO CAFFEINE 3 HOURS OR MORE AFTER WAKE UP TIME. - ONLY USE YOUR BED FOR SLEEPING - GET A RELAXATION ROUTINE BEFORE BED. - IF YOU CAN'T GET TO SLEEP AFTER 15 TO 30 MINUTES GET OUT OF BED AND DO SOMETHING RELAXING. - DON'T DRINK ALCOHOL IN THE EVENING or limit alcohol to 1 drink. 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) 05/11/2023 Major depressive disorder, recurrent severe without psychotic features (ICD-10 - F33.2) 05/11/2023 Generalized anxiety disorder (ICD-10 - F41.1) 05/11/2023 Attention-defic it hyperactivity disorder, predominantly inattentive type (ICD-10 - F90.0) 05/15/2023 Attention-defic it hyperactivity disorder, predominantly inattentive type (ICD-10 - F90.0) 05/25/2023 Major depressive disorder, recurrent severe without psychotic features (ICD-10 - F33.2) 05/25/2023 Generalized anxiety disorder (ICD-10 - F41.1) 05/25/2023 Primary insomnia (ICD-10 - F51.01) 05/25/2023 Attention-defic it hyperactivity disorder, predominantly inattentive type (ICD-10 - F90.0) 05/25/2023 Other assisted (current) drug therapy (ICD-10 - Z79.899) 06/08/2023 Major depressive disorder, recurrent severe without psychotic features (ICD-10 - F33.2) 06/08/2023 Generalized anxiety disorder (ICD-10 - F41.1) 06/08/2023 Primary insomnia (ICD-10 - F51.01) 06/08/2023 Attention-defic it hyperactivity disorder, predominantly inattentive type (ICD-10 - F90.0) 06/08/2023 Other assisted (current) drug therapy (ICD-10 - Z79.899) 06/27/2023 Attention-defic it hyperactivity disorder, predominantly inattentive type (ICD-10 - F90.0) 07/24/2023 Attention-defic it hyperactivity disorder, predominantly inattentive type (ICD-10 - F90.0) 09/05/2023 Major depressive disorder, recurrent severe without psychotic features (ICD-10 - F33.2) 09/05/2023 Generalized anxiety disorder (ICD-10 - F41.1) stable 04/02/2024 Major depressive disorder, recurrent severe without psychotic features (ICD-10 - F33.2) Common side effects to SSRI medications include headaches, dry mouth/eye, GI upset (including indigestion, nausea, diarrhea), sleeping problems (insomnia or drowsiness), decreased libido, blurred vision, dizziness. Generally, side effects will subside or lessen with time and are common during drug initiation and dose changes. If they persist please contact the office. 1. ADHD stable -cont atomoxetine 40mg BID for ADHD management -cont methylphenidate 15mg BID PRN for ADHD support 2. MDD overall stable, situationally exacerbated secondary to health concern -cont fluoxetine 80mg daily -encouraged self care, journaling discussed headspace harmony 3. FREEMAN overall stable, situationally exacerbated secondary to health concern -cont fluoxetine 80mg daily -encourage non-pharmaceutic al treatments including deep breathing, grounding exercises, physical activity, healthy diet. 4. insomnia stable - KEEP YOUR BEDROOM DARK - GET LOTS OF NATURAL LIGHT IN THE MORNING. - DON'T WORK ON YOUR COMPUTER OR PHONE LATE AT NIGHT. - AVOID NAPS DURING THE DAY. - NO CAFFEINE 3 HOURS OR MORE AFTER WAKE UP TIME. - ONLY USE YOUR BED FOR SLEEPING - GET A RELAXATION ROUTINE BEFORE BED. - IF YOU CAN'T GET TO SLEEP AFTER 15 TO 30 MINUTES GET OUT OF BED AND DO SOMETHING RELAXING. - DON'T DRINK ALCOHOL IN THE EVENING or limit alcohol to 1 drink. 01/21/2024 Major depressive disorder, recurrent severe without psychotic features (ICD-10 - F33.2) 12/02/2023 Attention-defic it hyperactivity disorder, predominantly inattentive type (ICD-10 - F90.0) 12/26/2023 Major depressive disorder, recurrent severe without psychotic features (ICD-10 - F33.2) Common side effects to SSRI medications include headaches, dry mouth/eye, GI upset (including indigestion, nausea, diarrhea), sleeping problems (insomnia or drowsiness), decreased libido, blurred vision, dizziness. Generally, side effects will subside or lessen with time and are common during drug initiation and dose changes. If they persist please contact the office. 12/26/2023 Generalized anxiety disorder (ICD-10 - F41.1) 04/02/2024 Generalized anxiety disorder (ICD-10 - F41.1) 1. ADHD stable -cont atomoxetine 40mg BID for ADHD management -cont methylphenidate 15mg BID PRN for ADHD support 2. MDD overall stable, situationally exacerbated secondary to health concern -cont fluoxetine 80mg daily -encouraged self care, journaling discussed headspace harmony 3. FREEMAN overall stable, situationally exacerbated secondary to health concern -cont fluoxetine 80mg daily -encourage non-pharmaceutic al treatments including deep breathing, grounding exercises, physical activity, healthy diet. 4. insomnia stable - KEEP YOUR BEDROOM DARK - GET LOTS OF NATURAL LIGHT IN THE MORNING. - DON'T WORK ON YOUR COMPUTER OR PHONE LATE AT NIGHT. - AVOID NAPS DURING THE DAY. - NO CAFFEINE 3 HOURS OR MORE AFTER WAKE UP TIME. - ONLY USE YOUR BED FOR SLEEPING - GET A RELAXATION ROUTINE BEFORE BED. - IF YOU CAN'T GET TO SLEEP AFTER 15 TO 30 MINUTES GET OUT OF BED AND DO SOMETHING RELAXING. - DON'T DRINK ALCOHOL IN THE EVENING or limit alcohol to 1 drink. 09/05/2023 Primary insomnia (ICD-10 - F51.01) stable 04/02/2024 Primary insomnia (ICD-10 - F51.01) 1. ADHD stable -cont atomoxetine 40mg BID for ADHD management -cont methylphenidate 15mg BID PRN for ADHD support 2. MDD overall stable, situationally exacerbated secondary to health concern -cont fluoxetine 80mg daily -encouraged self care, journaling discussed headspace harmony 3. FREEMAN overall stable, situationally exacerbated secondary to health concern -cont fluoxetine 80mg daily -encourage non-pharmaceutic al treatments including deep breathing, grounding exercises, physical activity, healthy diet. 4. insomnia stable - KEEP YOUR BEDROOM DARK - GET LOTS OF NATURAL LIGHT IN THE MORNING. - DON'T WORK ON YOUR COMPUTER OR PHONE LATE AT NIGHT. - AVOID NAPS DURING THE DAY. - NO CAFFEINE 3 HOURS OR MORE AFTER WAKE UP TIME. - ONLY USE YOUR BED FOR SLEEPING - GET A RELAXATION ROUTINE BEFORE BED. - IF YOU CAN'T GET TO SLEEP AFTER 15 TO 30 MINUTES GET OUT OF BED AND DO SOMETHING RELAXING. - DON'T DRINK ALCOHOL IN THE EVENING or limit alcohol to 1 drink. 12/26/2023 Primary insomnia (ICD-10 - F51.01) 12/26/2023 Other Discontinue Concerta. Start methylphenidate 10mg BID for ADHD Increase fluoxetine to 80mg daily for anxiety. Patient educated on all medications including potential benefits, side effects, risks. Educated on proper dosing schedule and importance of compliance. [place] report checked and consistent with prescription history, no controlled substance prescriptions from other providers. 04/02/2024 Other Overall stable, cont current medications. Refills sent today Patient educated on all medications including potential benefits, side effects, risks. Educated on proper dosing schedule and importance of compliance. [place] report checked and consistent with prescription history, no controlled substance prescriptions from other providers. -Assessment and treatment plan reviewed with patient. -Compliance with treatment plan importance discussed. -Discussed the risks/benefits of this medication -Discussed medication side effects. -Contact office if symptoms worsen. -Discussed that it can take up to 6-8 weeks to see full therapeutic effects of psychotropic medications. -Crisis prevention hotline [phone]. 1. ADHD stable -cont atomoxetine 40mg BID for ADHD management -cont methylphenidate 15mg BID PRN for ADHD support 2. MDD overall stable, situationally exacerbated secondary to health concern -cont fluoxetine 80mg daily -encouraged self care, journaling discussed headspace harmony 3. FREEMAN overall stable, situationally exacerbated secondary to health concern -cont fluoxetine 80mg daily -encourage non-pharmaceutic al treatments including deep breathing, grounding exercises, physical activity, healthy diet. 4. insomnia stable - KEEP YOUR BEDROOM DARK - GET LOTS OF NATURAL LIGHT IN THE MORNING. - DON'T WORK ON YOUR COMPUTER OR PHONE LATE AT NIGHT. - AVOID NAPS DURING THE DAY. - NO CAFFEINE 3 HOURS OR MORE AFTER WAKE UP TIME. - ONLY USE YOUR BED FOR SLEEPING - GET A RELAXATION ROUTINE BEFORE BED. - IF YOU CAN'T GET TO SLEEP AFTER 15 TO 30 MINUTES GET OUT OF BED AND DO SOMETHING RELAXING. - DON'T DRINK ALCOHOL IN THE EVENING or limit alcohol to 1 drink. 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 , predominantly inattentive type Complex regional pain syndrome of lower limb Disorder of gallbladder Gastroesophageal reflux disease without esophagitis Generalized anxiety disorder History of Spinal surgery Insomnia Migraine Nicotine dependence Patient encounter status Postural orthostatic tachycardia syndrom e Primary insomnia Seizure related finding Severe recurrent major depression withou t psychotic features Supraventricular tachycardia Vasovagal syncope , Surgical History Surgery Date(Month/Year) Any surgical history Appendectomy (32783) 05/29/2005 Any surgical history 06/15/2010 Removal of gallbladder (79665) 2 Other 03/22/2021 ankle surgery nerve surgeries drg, scs revision
--- OUTSIDE RECORDS SUMMARY | 2024-04-23 10:39 | XMS_ITS | Encounter Summary ---
Author Organization [facility] Healthcare Address [address] [place] [address] Care Team Providers Care Block Press Operator Name Role Phone KalebRose Mary RN Unavailable Unavailab Shelley Sullivan MD Unavailable Melquiades Parada MD Unavailable [phone] Joy Lara MD Primary Care Provider Chloe Sheldon PT Unavailable [phone] Pete Rivera MD Unavailable [phone] Bettina Alexander CONSULTING MANAGER Unavailable Berenice Sher NP Primary Care Provider [phone] Encounter Details Date Type Department Care Team (Late st Contact Info) Description 06/16/2020 Telephone [facility] [place] [facility] [address] [facility] [address] [place] [address] Melquiades Parada MD [address] [facility] [phone] [place] [address] Social History Tobacco Use Types [...] PM CDT Legal Sex Female 4:21 PM INFORMATION SYSTEMS DIRECTOR Gender Identity Female 10/27/2023 9:19 AM CDT Sexual Orientation Straight 06/25/2018 8: 44 PM CDT documented as of this encounter Plan of Treatment Not on file documented as of this encounter Goals Goal Patient Goal Type Associated Problems Recent Progress Patient-Stated? Author CCM Chronic Pain Care Plan Chronic Care Management Worsening( 10:10 AM INFORMATION SYSTEMS DIRECTOR) No Merna Rubio RN Note: Problem: Chronic [...] stairs Contact your local community or senior pingree for information on exercise, fall prevention programs, or options for improving home safety. documented as of this encounter Visit Diagnoses Not on filedocumented in this encounter Additional Health Concerns Infection Onset Date Last Indicated Resolved Time COVID: Suspected 06/23/2020 06/23/2020 06/24/2020 8:58 AM CDT COVID: Suspected 11/19/2021 11/19/2021 11/19/2021 12:25 PM CDT documented as of this encounter Care Teams Block Press Operator Relationship Specialty Start Date End Date Joy Lara MD [address] [place] [address] PCP - General Internal Medicine 03/06/20 10/06/22 Berenice Sher, PILAR [address] [facility] [address] [place] [address] PCP - General Family Medicine 10/07/22 Rose Mary Manuel, RN Registered Nurse 04/13/18 10/26/22 Shelley Colin MD Anesthesiologist Anesthesiology 08/02/19 10/26/22 Melquiades Parada MD Anesthesiologist Anesthesiology 08/02/19 10/26/22 Chloe Sheldon, PT [address] [facility] [address] [place] [address] Physical Therapist Physical Therapy 01/22/20 10/26/22 Pete Rivera MD [address] [facility] [address] [place] [address] Referring Physician Pain Management 06/02/21 Bettina Alexander, CONSULTING MANAGER [address] [facility] ([facility]) Mailstop [phone] [place] [address] SHOP Outpatient Data Warehouse Administrator 06/03/21 06/07/21 Griffin Eller U Fill Manager 10/27/22 Sadie Ventura Psychiatry 12/15/22 documented as of this encounter
--- OUTSIDE RECORDS SUMMARY | 2024-04-23 10:39 | XMS_ITS | Encounter Summary ---
Author Organization [facility] Healthcare Address [address] [place] [address] Care Team Providers Care Dial Polisher Name Role Phone Riana Weaver MD Primary Care Provider Rose Mary Manuel RN Unavailable Unavailab Shelley Sullivan MD Unavailable Melquiades Parada MD Unavailable Joy Lara MD Primary Care Provider Chloe Sheldon PT Unavailable Pete Rivera MD Unavailable Bettina Alexander FITNESS SALES ASSOCIATE Unavailable Berenice Sher NP Primary Care Provider [phone] Encounter Details Date Type Department Care Team (Late st Contact Info) Description 10/31/2019 Telephone [facility] [place] [facility] [address] [facility] Advanced Medicine [address] [place] [address] Melquiades Parada MD [address] [facility] [phone] [place] [address] Social History Tobacco Use Types Packs/Day Years Used Date Smoking Tobacco: Every Day E-cigarettes Started: 2016 Vaping Started: 2016 Smokeless Tobacco: Current Comments:vapor cigarettes/do es not smoke reg cigarettes Alcohol Use Standard Drinks/Week Comments Not Currently 1 (1 standard drink = 0.6 oz pur e alcohol) Comments No Sex and Gender Information Value Date Recorded Sex Assigned at Female 06/25/2018 8:44 PM CDT Legal Sex Female 4:21 PM DIRECTORY CLERK Gender Identity Female 10/27/2023 9:19 AM CDT Sexual Orientation Straight 06/25/2018 8: 44 PM CDT documented as of this encounter Plan of Treatment Not on file documented as of this encounter Goals Goal Patient Goal Type Associated Problems Recent Progress Patient-Stated? Author CCM Chronic Pain Care Plan Chronic Care Management Worsening( 10:10 AM DIRECTORY CLERK) No Merna Rubio RN Note: Problem: Chronic [...] on stairs Contact your local community or [facility] for information on exercise, fall prevention programs, or options for improving home safety. documented as of this encounter Visit Diagnoses Not on filedocumented in this encounter Additional Health Concerns Infection Onset Date Last Indicated Resolved Time COVID: Suspected 06/23/2020 06/23/2020 06/24/2020 8:58 AM CDT COVID: Suspected 11/19/2021 11/19/2021 11/19/2021 12:25 PM CDT documented as of this encounter Care Teams Dial Polisher Relationship Specialty [place] [address] [facility] [address] [place] [address] PCP - General 06/25/16 03/05/20 Joy Lara MD [address] [facility] [address] [place] [address] PCP - General Internal Medicine 03/06/20 10/06/22 Berenice Sher NP [address] [facility] [address] [place] [address] PCP - General Family Medicine 10/07/22 Rose Mary Manuel RN Registered Nurse 04/13/18 10/26/22 Shelley Colin MD Anesthesiologist Anesthesiology 08/02/19 10/26/22 Melquiades Parada MD Anesthesiologist Anesthesiology 08/02/19 10/26/22 Chloe Sheldon, PT [address] [facility] [address] [place] [address] Physical Therapist Physical Therapy 01/22/20 10/26/22 Pete Rivera MD [address] [facility] [address] [place] [address] Referring Physician Pain Management 06/02/21 Bettina Alexander, FITNESS SALES ASSOCIATE [address] [facility] ([facility]) Mailstop [phone] [place] [address] SHOP Outpatient Pneumatic Tool Operator 06/03/21 06/07/21 Griffin Eller U Medical Reception Specialist 10/27/22 Sadie Ventura Psychiatry 12/15/22 documented as of this encounter
--- OUTSIDE RECORDS SUMMARY | 2024-04-23 10:39 | XMS_ITS | Clinical Summary ---
Author Organization [facility] Address [address] [place] [address] Care Team Providers Care Social Worker School Name Role Phone Pete Rivera MD Unavailable [phone] Berenice Sher NP Primary Care Provider [phone] Allergies Active Allergy Reactions Criticality Noted Date Comments Adhesive Itching,Rash Medium Aloe Vera Oil Itching,Rash Medium 02/06/2017 Oxcarbazepine Other (See comments) High 12/20/2019 Unresponsive, turned pale Other reaction(s): Other Unresponsive, turned pale Tree Nuts Anaphylaxis,Shortnes s of breath,Itching,Swollen tongue High 01/18/2016 States that she can only have peanuts Medications acetaminophen (TYLENOL) 500 mg tabletIndications :Pain Take 2 tablets (1,000 mg total) by mouth every 6 (six) hours as needed Active cannabidiol, CBD, (medical cannabis) each 2 Active EPINEPHrine 0.3 mg/0.3 mL auto-injection syringeIndication s:Anaphylaxis Inject 0.3 mL (0.3 mg total) into the muscle as instructed as needed for anaphylaxis Call 911 after use. 2 each 1 2 Active venlafaxine XR (EFFEXOR-XR) 37.5 mg 24 hr capsule Take 1 capsule (37.5 mg total) by mouth daily 90 capsule 3 3 Active atomoxetine (STRATTERA) 40 mg capsuleIndication s:Attention-Defic it Hyperactivity Disorder Take 1 capsule (40 mg total) by mouth daily Active ondansetron (Zofran) 4 mg tablet Take 1 tablet (4 mg total) by mouth every 8 (eight) hours as needed for nausea or vomiting 30 tablet 3 Active U21-aeezcwwvbguub drofolate-B6 1,000mcg-680mcg DFE-1.5 mg tablet,chewable 4 Active FLUoxetine 10 mg capsule 2 tablet/capsule (20 mg total) 4 Active FLUoxetine (PROzac) 40 mg capsule 4 Active Concerta 36 mg CR tablet 4 Active methylphenidate ER (CONCERTA) 18 mg CR tablet Take 1 tablet (18 mg total) by mouth seed cone picker before breakfast Active sodium chloride 1,000 mg tablet TAKE 1 TABLET BY MOUTH THREE TIMES DAILY WITH MEALS Active meloxicam (MOBIC) 15 mg tablet Take 1 tablet (15 mg total) by mouth daily 60 tablet 1 4 Active Active Problems Problem Noted Date Diagnosed Date Gallbladder disease 03/23/2022 Overview (03/23/2022): 03/17: S/P removal. Assessment & Plan (03/23/2022 1:50 PM DIRECTOR OF CONTENT MARKETING): S/P gallbladder removal. Symptoms improved. SVT (supraventricular tachycardia) 03/23/2022 Overview (03/23/2022): 03/17: Given metoprolol through cardiology - she will return in 1 mo. Assessment & Plan (03/23/2022 1:42 PM DIRECTOR OF CONTENT MARKETING): Starting metoprolol POTS (postural orthostatic tachycardia syndrome) 03/23/2022 Overview (03/23/2022): 03/17: just started on metoprolol 25 mg daily (has not started yet) - not fainting but getting dizzy and vision goes dark upon standing. Happens all the time with position changes. Dr. Eller is cards. Assessment & Plan (03/23/2022 1:43 PM DIRECTOR OF CONTENT MARKETING): Working with cardiology Starting metoprolol Consider compression Vasovagal syncope 11/02/2021 Observed seizure-like activity 09/07/2021 Assessment & Plan (03/22/2022 12:39 PM DIRECTOR OF CONTENT MARKETING): Follows with neuro Assessment & Plan (09/07/2021 7:07 PM CDT): Patient describes a vasovagal syncope vs seizure activity. She does not describe a postictal time after passing out. She was coherent when she regained consciousness. She is still having intermittent headaches. She will follow up with Dr Weaver in Neurology. Gastroesophageal reflux disease without esophagi tis 03/17/2021 Overview (10/01/2021): Has not been taking her omeprazole. Using Advil Assessment & Plan (03/23/2022 1:50 PM DIRECTOR OF CONTENT MARKETING): No longer on omeprazole Stable Assessment & Plan (10/01/2021 11:59 AM CDT): Stop the ibuprofen Increase the omeprazole to 40 mg daily for the next 2 weeks Attention deficit hyperactivity disorder (ADHD) 04/26/2020 Overview (03/23/2022): Used to take adderall - addiction was an issue. 03/17: Now restarting school and thinks straterra may help. Assessment & Plan (12/15/2022 10:55 AM CDT): Has established with Psychiatry, first appointment yesterday. Strattera was increased, experiences some nausea with it (Zofran prn). Buspar and Seroquel was also added. Continuing with Psychiatry. Assessment & Plan (10/28/2022 7:56 AM CDT): ADHD not well controlled on the Wellbutrin. Patient has hx of medication addiction (x 1-2 years ago) so there is hesitancy from patient to be on controlled substance again. However, the Wellbutrin is not helping with concentration. Discussed Strattera and pt agreeable. Will wean off Wellbutrin and then start the Strattera. Psychiatry referral also placed. Pt denies SI. Assessment & Plan (03/23/2022 1:51 PM DIRECTOR OF CONTENT MARKETING): Consider adding straterra in a few weeks Will discuss with Dr. Lara Assessment & Plan (04/26/2020 4:34 PM DIRECTOR OF CONTENT MARKETING): Wondering if MD can prescribe ADD meds. Prior dgx of ADD, was prescribed stimulants prior -Have not received prior records as yet -Discussed with pt more than happy to resume prescription once documentation regarding prior dgx and treatment obtained. -At high risk in s/o chronic substance abuse technician opiate therapy for complex regional pain syndrome, and comorbid anxiety, depression and prior hx of SA/overdose. Allergy to tree nuts 03/31/2020 Assessment & Plan (03/22/2022 12:41 PM DIRECTOR OF CONTENT MARKETING): Carries EpiPen Assessment & Plan (03/31/2020 3:35 PM DIRECTOR OF CONTENT MARKETING): She had reaction last week from eating popcorn with cashews in it. Took her epi pen an symptoms improved within minutes. Refilled epi pen. To be more careful with diet to avoid accidental injection of allergen. Adult general medical exam 03/05/2020 Assessment & Plan (03/23/2022 1:52 PM DIRECTOR OF CONTENT MARKETING): The patient should continue to focus on diet and exercise as a way to maintain and improve health. Will review labs performed today and contact the patient with the results. Assessment & Plan (03/05/2020 6:29 PM DIRECTOR OF CONTENT MARKETING): -Immunization status: unknown status, parent/patient to bring shot records influenza vaccine today -cervical cancer screening: Recommended; Pt plans to have pap completed by global implementation manager when she gets her IUD replaced; will send copy of record -mammograms: not indicated -colon cancer screening: not indicated -bone density screening: not indicated -smoking hx: reports that she has been smoking e-cigarettes and vaping. She started smoking about 3 years ago. She uses smokeless tobacco. -Body mass index is 29.38 kg/m??. Wt Readings from Last 3 Encounters: 03/05/20 82.6 kg (182 lb) 02/18/20 82.6 kg (182 lb) 01/20/20 88 kg (194 lb) Lab Results Component Value Date TSH 6.72 (H) 09/24/2015 Nicotine dependence due to vaping tobacco produc t 03/05/2020 Assessment & Plan (03/22/2022 12:39 PM DIRECTOR OF CONTENT MARKETING): Quit entirely Assessment & Plan (03/05/2020 7:14 PM DIRECTOR OF CONTENT MARKETING): Active smoker, 3 year hx of ecigs and vaping -Counseled, not ready to quit at this time. Discussed nicotine replacement and smoking cessation medications Anxiety 01/06/2018 Overview (10/01/2021): Has not been taking her venlafaxine (1 mo) Has a visit with her psychiatrist later this month Assessment & Plan (03/23/2022 1:51 PM DIRECTOR OF CONTENT MARKETING): Restarting venlafaxine Assessment & Plan (10/01/2021 11:59 AM CDT): Restart venlafaxine at 75 mg Assessment & Plan (04/26/2020 4:44 PM DIRECTOR OF CONTENT MARKETING): Prior appt (03/05/20): Pt requesting xanax, missed her psychiatry appt which was scheduled for earlier this morning. Told pt ok to prescribe 3-4 pills to bridge her to appt, but without documentation of prior script will not prescribe any further. 4 day supply with no refills of xanax sent to pharmacy -on venlafaxine, buspar Assessment & Plan (03/05/2020 6:18 PM DIRECTOR OF CONTENT MARKETING): Pt reports her anxiety has become much worse since recently starting effexor Pt requesting xanax, missed her psychiatry appt which was scheduled for earlier this morning. Told pt ok to prescribe 3-4 pills to bridge her to appt, but without documentation of prior script will not prescribe any further -4 day supply with no refills of xanax sent to pharmacy S/P insertion of spinal cord stimulator 11/10/19 18 Overview (04/12/2019): Re - implanted DRSG - 04/04/2019 Assessment & Plan (03/22/2022 12:39 PM DIRECTOR OF CONTENT MARKETING): Stable Insomnia 05/21/2016 Assessment & Plan (03/23/2022 1:50 PM DIRECTOR OF CONTENT MARKETING): Improving Major depression 07/12/2012 Overview (04/20/2022): Severe and recurrent, active Patient is not [...] to 75 mg today Therapy 9 months Assessment & Plan (10/28/2022 7:55 AM CDT): Overall stable on the Effexor 75 mg but anxiety not at goal and likely attributed to ADHD not being controlled on the Wellbutrin. Patient has hx of pain medication addiction (x 1-2 years ago) so there is hesitancy from patient to be on controlled substance again. However, the Wellbutrin is not helping with concentration. Discussed Strattera and pt agreeable. Will wean off Wellbutrin and then start the Strattera. Psychiatry referral also placed. Pt denies SI. Assessment & Plan (03/23/2022 1:39 PM DIRECTOR OF CONTENT MARKETING): Wants to restart effexor - start with 37.5mg for 2 weeks and if tolerating then can increase to 75 mg Call once you increase and we can send out a higher dose. Assessment & Plan (10/01/2021 10:32 AM CDT): Should be on antidepressant Please restart Effexor at 75 mg per day Assessment & Plan (04/26/2020 4:37 PM DIRECTOR OF CONTENT MARKETING): Severe and recurrent, active Patient is not [...] -currently on venlafaxine 75mg, trazodone 50mg qhs Assessment & Plan (03/05/2020 6:14 PM DIRECTOR OF CONTENT MARKETING): Severe and recurrent, active PHQ Screening (03/05/2020) PHQ-2 Total Score (If total score is 3 or more points, staff should administer the PHQ-9): 6 PHQ-9 Total Score: 19 Patient is not an imminent harm to [...] pt sees frequently and has upcoming appt Migraine 05/23/2011 CRPS (complex regional pain syndrome) type I of lower limb Overview (10/01/2021): On narcotics since 2010. This caused severe constipation. Now off. On MJ 90- pain is better. Few weeks vomiting and diarrhea. Lost 25 pounds. Pain epigastric. MALS? No blood in vomit or stool. BMs: 15 yesterday - mucus consistency. 5 is more the normal recently. Occasional cramping. Assessment & Plan (10/28/2022 7:57 AM CDT): Following with Pain Management, has medical marijuana card and pain pump. Assessment & Plan (03/23/2022 1:50 PM DIRECTOR OF CONTENT MARKETING): No longer on narcotics Using Medical MJ - as needed Has spinal cord stimulator Resolved Problems Problem Noted Date Diagnosed Date Resolved Date Chronic pain syndrome 01/07/20212020 History of IBS 04/26/2020 03/17/2021 Assessment & Plan (04/26/2020 4:39 PM DIRECTOR OF CONTENT MARKETING): Prior hx of IBS in s/o active anxiety and depression. Also with constipation 2/2 substance abuse technician chronic opiate therapy. -trial bentyl -trial elimination diet of foods known to worsen IBS, will message pt handout Right upper quadrant pain 03/31/2020 Assessment & Plan (04/26/2020 4:37 PM DIRECTOR OF CONTENT MARKETING): Ongoing intermittent RUQ pain, no relation to meals. Seen in ED on 03/31/2019, notes reviewed. Personally reviewed CT abd pelvis with contrast: E/o fatty liver but no acute inflammation or infxous process. Gallbladder appears normal. Review of labs done in ED: CBC wnl, Liver panel wnl, alk phos, lipase wnl. Pt reassured, no acute abdominal pathology seen on imaging and labs wnl. Does have prior hx of IBS in s/o active anxiety and depression. Also consider constipation in s/o chronic opiate treatment for chronic pain. -trial bentyl -IBS management as outlined elsewhere -continue linzess -given bland w/u on labs and recent imaging can defer RUQ us at this time. Reconsider obtaining study if lifestyle modifications/ bentyl do not improve pts symptoms. Assessment & Plan (03/31/2020 3:33 PM DIRECTOR OF CONTENT MARKETING): Abdominal pain across the upper abdomen but focuses on RUQ for one month, intermittent. Patient pressed on RUQ today and it was painful. Recommend lab evaluation and US of RUQ. Orders were placed. She will call to schedule and make sure her insurance information is updated prior to getting US done so she does not get billed incorrectly. If she has severe pain with fever or vomiting to go to ER. She is agreeable. It is possible that pain is just from GERD or constipation. Recommend she continue with linzess (has BM every other day and had one yesterday). To add omeprazole OTC 20mg and take 2 tabs daily for one month. Avoid spicy, acidic foods, dairy, and fatty foods. Follow up with Dr. Lara in two weeks. Dark urine 03/31/2020 03/17/2021 Assessment & Plan (03/31/2020 3:34 PM DIRECTOR OF CONTENT MARKETING): No pain, just dark urine. May be dehydrated. Increase fluids. Check UA to rule out infection. Class 1 obesity due to exces s calories with serious comorbidity and body mass index (BMI) of 32.0 to 32.9 in adult 03/31/2020 03/23/2022 Assessment & Plan (03/22/2022 12:40 PM DIRECTOR OF CONTENT MARKETING): BMI Follow-up includes: nutrition counseling and exercise counseling. Assessment & Plan (10/01/2021 12:01 PM CDT): BMI Follow-up includes: nutrition counseling and exercise counseling. Assessment & Plan (03/31/2020 3:34 PM DIRECTOR OF CONTENT MARKETING): BMI Follow-up includes: nutrition counseling and exercise counseling. Constipation due to opioid therapy 03/05/2020 03/23/2022 Assessment & Plan (03/22/2022 12:40 PM DIRECTOR OF CONTENT MARKETING): No longer on narcotics Assessment & Plan (04/26/2020 4:35 PM DIRECTOR OF CONTENT MARKETING): Constipation secondary to high dose opioid use. She reports constipation is better since she started Linzess. Is taking 145mcg daily and has BM every other day. -continue linzess -advise pt to stay hydrated Assessment & Plan (03/31/2020 3:34 PM DIRECTOR OF CONTENT MARKETING): Constipation secondary to high dose opioid use. She reports constipation is better since she started Linzess. Is taking 145mcg daily and has BM every other day. Last BM was yesterday. Does not feel that her current pain is constipation related. Encouraged her to stay well hydrated. Assessment & Plan (03/05/2020 7:14 PM DIRECTOR OF CONTENT MARKETING): Continue senna -trial linzess Lumbago 10/18/2019 04/26/2020 Infection of spinal cord stimulator (CMS/HCC) 11/23/1904/12/2019 Assessment & Plan (11/26/2018 3:01 PM CDT): S/p device aspiration for culture followed by explantation of stimulator s/p drain removal and growing pansensitive Mssa. Seen by ID Patient agreeable to PICC line for ceftriaxone 2 g IV q.day for 2 weeks. Assessment & Plan (11/25/2018 1:35 PM CDT): S/p device aspiration for culture followed by explantation of stimulator now with drains in place and growing pansensitive mssa. Discontinue vancomycin. Patient agreeable to PICC line for ceftriaxone 2 g IV q.day for 2 weeks. Assessment & Plan (11/24/2018 3:15 PM CDT): S/p device aspiration for culture followed by explantation of stimulator now with drains in place and growing staph- culture pending. vanc trough 10.7, increased dosage to 1750mg iv q12h. Check trough before 4th dose. Change cefepime to ceftriaxone per ID recs. Assessment & Plan (11/25/2018 1:14 PM CDT): 23 y.o. female and has PMH significant for complex regional pain syndrome s/p DRG stimulator implant in July 2016 c/b by shocks and failure s/p revision x2, the most recent on 10/31/18, now admitted for post-surgical wound infection. - s/p replacement of the DRG stimulator lead?? and removal of??(3rd)??DRG stimulator lead on 10/31/18 - s/p explant of the DRG stimulator and on 11/22. Cultures growing MSSA (by PCR, final results pending) PLAN - OK to stop vancomycin - continue ceftriaxone 2 gm daily - anticipate 2 weeks treatment for post-surgical SSTI. Please call if any questions. Assessment & Plan (11/23/2018 1:01 PM CDT): - Presented with erythema, warmth, swelling and tenderness to palpation of right flank at side of spinal stimulator implantation - Febrile to 101.9 at home but overall hemodynamically stable, elevated white count to 15.5 - S/p device aspiration for culture followed by explantation of stimulator now with drains in place - S/p Vancomycin and aztreonam intraoperatively - Blood cultures pending - Continue vancomycin and start cefepime pending blood and surgical cultures. Monitor bmp, vanc levels. ID consulted Anxiety and depression 11/22/201801/03 Assessment & Plan (11/25/2018 1:33 PM CDT): - Continue home sertraline. She appears better today. Spiritual care referral for help with coping as requested per family. Assessment & Plan (11/24/2018 3:13 PM CDT): - Continue home sertraline. Spiritual care referral for help with coping as requested per family. Assessment & Plan (11/22/2018 7:43 PM CDT): - Continue home sertraline Cellulitis and abscess of toe of left foot 05/17/2018 12/04/2018 Ingrown right big toenail 05/14/2018 Chronic use of opiate drug f or therapeutic purpose 06/21/2016 03/23/2022 Overview (02/10/2021): CHRONIC OPIOID THERAPY - 02/10/21 Chronic opioid dosing - oxycodone 45 q 4 hrs = 270 mg/day (MME = 405/day) - 01/08/21 OUT OF OXYCODONE 4 DAYS EARLY ATTRIBUTED TO SEVERE PAIN EXACERBATION, ER VISITS X 2 01/07/21; CHANGE TO HYDROMORPHONE FOR PAIN EXACERBATION - 02/08/21 OUT OF HYDROMORPHONE 4 DAYS EARLY DUE TO SEVERE EXACERBATION OF PAIN, INADEQUATE PAIN CONTROL AT NIGHT Current analgesics - 02/10/21 - MSER 15 TID = 45 mg/day - oxycodone 10 mg tab x 1-2 QID = 80 mg/day Morphine equivalent: 45 + 120 = 165 MME Other: no Storage: Instructed to be caps locked at all times Plan : 1 month follow up visits STRICT 2 WEEK REFILL INTERVAL - anticipate further opioid dose reduction at follow-up visit mid February 2021 Urine drug screen [facility] 06/21/16 - consistent??for?prescribing. Urine drug screen [facility] 02/06/17 - consistent??for??prescribed oxycodone Urine drug screen [facility] 12/14/17 - consistent??for?prescribed oxycodone?? Urine drug screen [facility] 05/14/18 - consistent??for?prescribed oxycodone Urine drug screen [facility] 04/26/19 -??consistent for prescribed ??oxycodone, in addition cannabinoids and hydrocodone were detected??(hydrocodone later determined to be lab error, result removed) Urine drug screen [facility]??05/15/19??-??consistent with prescribed oxycodone Urine drug screen [facility]??11/12/19??-??consistent with prescribed oxycodone Urine drug screen [facility]??08/25/20??-??consistent with prescribed analgesics, positive for amphetamines - addendum - pt denies any use, knowledge of amphetamines. Reviewed with crown and bridge dental lab technician - significant levels of amphetamine identified comparable to that seen in people taking prescription amphetamine. Urine drug screen [facility] 10/28/20 - consistent with prescribed oxycodone, morphine Urine drug screen [facility] 02/10/21 - results pending Neuralgia of left peroneal nerve 01/21/2016 03/22/2022 Headache(784.0) 01/18/2016 04/26/2020 Common peroneal neuropathy 01/08/2016 1 05/23/2021 Alcohol abuse 03/04/2013 12/04/2018 Anxiety disorder due to medical condition 03/04/2013 12/04/2018 School avoidance 03/04/2013 12/04/2018 Disturbance in sleep behavior 05/23/2011 03/17/2021 Overview (09/15/2020): Complex regional pain syndro me type 2 of left lower extremity 03/22/2022 Overview (09/07/2021): Diagnosed in 2017, found to have peroneal nerve impingement S/p removal of Sural Nerve and lateral superficial peroneal nerve S/p spinal stimulator placement c/b by shocks and failure s/p revision x2 and c/b subsq MSSA device infection , now s/p explantation F/b pain management- Dr. Parada; on chronic opiate therapy Opiate pain medications: [Morphine equivalent 340mg/daily] oxycodone 20mg IR QID, morphine ER 120mg qam and 100mg qpm Adjunctives: tizanidine, pregabalin >>>> Admission Date: 05/29/2021 Discharge Date: 06/02/2021 Admission Location: [facility] ?? From admission HPI: Chandra Mcdonald??is a 25 y.o.??female??with a hx of complex regional pain syndrome s/p??multiple L leg surgeries and??spine stimulators, depression, and anxiety??who presented as a transfer from [facility] ED for management of CPRS flare. She was in her usual state of health until yesterday (05/28) evening. She began having pain over her entire body, most notably her face, bilateral breasts, back, and groin. She describes the pain as constant and burning. Pain is exacerbated with movement and touch. She reports that this pain is consistent with her CPRS exacerbations. She did have 1 episode of emesis 2/2 pain. Her home regimen did not provide adequate relief (hydromorphone 8mg 5 times daily, Lyrica 200mg TID, Tizanidine 4mg TID PRN). She called her pain physician (Dr. Rivera in [place]) who recommended she go to the hospital for further pain management. She was a prior patient of Dr. Parada here at [facility] but now travels to [place] to see Dr. Rivera who is a CPRS specialist.??Of note, patient reports being treated with ketamine infusions, lidocaine infusions, and dilaudid NURSING SERVICE ADMINISTRATOR for prior flares. At [facility] ED, she was hypertensive to 156/100 and tachycardic to 103. Her CMP/CBC was unremarkable and COVID-19 was negative. She was given ~12mg IV dilaudid (per chart review) with only mild improvement in her pain. She was transferred to [place] given access to inpatient pain management team. Upon arrival to [facility], patient's vitals are within normal limits (HR 87, BP 111/68). She denies abd pain, changes in appetite, visual changes, recent trauma or falls, nausea, vomiting, diarrhea, constipation, fevers, chills. ?? Hospital Course: Chandra Mcdonald??is a 25 y.o.??female??with hx of complex regional pain syndrome s/p??multiple L leg surgeries and??spine stimulators, depression, and anxiety??who presented as a transfer from [facility] ED for management of CPRS flare. ?? Complex regional pain syndrome Began with LLE, s/p 5 leg surgeries and multiple spinal stimulators (latest??placed 03/22/21). Pain consistent with prior flares. Treated with ketamine infusion, lidocaine infusion, and dPCA in past. Follows with Dr. Rivera at [place], prior pt of Dr. Parada at [facility]. Started on dilaudid NURSING SERVICE ADMINISTRATOR on admission and continued until transitioned to home hydromorphone on day prior to discharge. Tried lidocaine infusion with no improvement in patient's pain. Pain management service was consulted on admission and was providing recs and following throughout stay. Pain fellow discussed patient's plan with patient's pain team at [place]. On discharge, patient given prescription for hydromorphone 8mg five times daily, Lyrica 100mg three times daily, and tizanidine 2mg three times daily as needed until 06/30/2021. Patient will follow-up with Dr. Rivera on 06/30/21 at [place]. Admission to [facility] on 06/27/21 On admission, her regiment was as follows: Dilaudid 8mg 5x/day, Lyrica 100mg TID, Tizanidine 2mg TID, and Ibuprofen 800mg TID. She was seen in our pain clinic having run out of her opiates early several times. She expressed a desire to wean off opiates and was previously unsuccessful with Suboxone treatments. She was started on a Ketamine infusion (40 mg/h) for escalated pain control. [facility] ([facility]) was consulted to evaluate for opioid use disorder; they concluded she did not meet the criteria for this. She continued to express a desire to wean off opiates. She was amenable to a buprenorphine wean and was started on the 7-day protocol on 06/29. She did not experience withdrawal symptoms, but continued to complain of pain. Her Ketamine gtt was uptitrated to 75mg/h by 07/05. She expressed wanting a medical marijuana card for which Palliative Medicine agreed to evaluate her for as an outpatient. Her buprenorphine wean ended on 07/05 and Ketamine gtt was discontinued. She was started on Indomethacin for additional pain control. She was monitored overnight and noted her pain was well-controlled on the morning of 07/06. She was deemed stable for discharge. Discharge meds 07/06/21 Medications as below: -Tylenol 1000mg q8h scheduled -Ibuprofen 800mg q8h scheduled -Continue Tizanidine to 6mg qhs (hold SBP < 90mmHg) -Lyrica 100mg TID scheduled, plan to increase to 200mg BID after buprenorphine wean completed to assist in pain control. Attempted to do it prior but patient became more sedated while on ketamine. -Opioids held on 06/29 for buprenorphine wean -Narcan nasal spray PRN -Continuous pulse ox and ETCO2 monitoring -Consulted palliative medicine for certification of medical marijuana --> was told this can be done as outpatient over 1-2 visits. Pt and fiance aware -HbA1c wnl - low suspicion for small fiber peripheral neuropathy ?? #Insomnia -Reduced home Trazodone 100mg qHs to trazodone 25mg qHs while on ketamine infusion to prevent oversedation and bradycardia. Will resume home dose on discharge ?? #Depression/Anxiety -Effexor 75mg TID scheduled 09/07/21 Now only on effexor 75 mg bid, omeprazole 20 mg daily, medical marijuana. Assessment & Plan (09/07/2021 7:04 PM CDT): Patient is now on Medical Marijuana, Effexor 75 mg bid and omeprazole 20 mg daily. She is not c/o pain except for intermittent headaches. 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 Parada; on chronic opiate therapy Opiate pain medications: [Morphine equivalent 340mg/daily] oxycodone 20mg IR QID, morphine ER 120mg qam and 100mg qpm Adjunctives: tizanidine, pregabalin Has upcoming appt scheduled with Dr. 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 Parada; on chronic opiate therapy Opiate pain medications: [Morphine equivalent 340mg/daily] oxycodone 20mg IR QID, morphine ER 120mg qam and 100mg qpm Adjunctives: tizanidine, pregabalin Assessment & Plan (11/26/2018 3:03 PM CDT): - Diagnosed in 2017 s/p spinal stimulator placement c/b by shocks and failure s/p revision x2 - Now with MSSA device infection following revision 3 weeks ago s/p explantation - Pain control: per pain service/anesthesia consult team. NURSING SERVICE ADMINISTRATOR and lidocaine drip stopped today, oxycodone added for pain and increased gabapentin and nortriptyline Cont Adjunctive therapy: Gabapentin, pregablin and tizanidine and bowel regimen- Senna- docusate -denies any new weakness , bladder or bowel changes , or new sensory symptoms . Assessment & Plan (11/25/2018 1:34 PM CDT): - Diagnosed in 2017 s/p spinal stimulator placement c/b by shocks and failure s/p revision x2 - Now with MSSA device infection following revision 3 weeks ago s/p explantation - Pain control: Dilaudid NURSING SERVICE ADMINISTRATOR- adjustments per pain service/anesthesia consult team. Monitor neuro S/p lidocaine drip. HERRERA drains removed 11/25. . Decreased cinetechnician per anesthesiology to 0.3 mg q 10 min lockout. Per anesthesia, plans to change to po pain regimen tomorrow 11/26 Cont Adjunctive therapy: Gabapentin, pregablin and tizanidin e and bowel regimen- Senna- docusate Assessment & Plan (11/24/2018 3:14 PM CDT): - Diagnosed in 2017 s/p spinal stimulator placement c/b by shocks and failure s/p revision x2 - Now with possible device infection following revision 3 weeks ago s/p explantation - Pain control: Dilaudid NURSING SERVICE ADMINISTRATOR- adjustments per pain service/anesthesia consult team. Monitor neuro. Pt requesting increase to 0.75 mg q 10 min lockout Cont Adjunctive therapy: Gabapentin, pregablin and tizanidine and bowel regimen- Senna- docusate Assessment & Plan (11/23/2018 1:01 PM CDT): - Diagnosed in 2017 s/p spinal stimulator placement c/b by shocks and failure s/p revision x2 - Now with possible device infection following revision 3 weeks ago s/p explantation - Pain control: Dilaudid NURSING SERVICE ADMINISTRATOR- adjustments per pain service/anesthesia consult team. Monitor neuro status - Adjunctive therapy: Gabapentin, pregablin and tizanidine - Bowel regimen- Senna- docusate - Encounters Date Type Department Care Team Description 02/14/2024 Orders Only [facility] Primary Care at [address] [address] Provider, MD Mary Grace from Last 3 Months Immunizations Name Administration Dates Next Due DTaP 11/18/1997, 7,1996,08/21 H1N1 Nasal 02/05/2009 Hep B Vaccine 03/11/1997,1996,1996 Hep B, Unspecified 1996 Hib (PRP-D) 1996 IPV 12/15/2000, 8,1996,08/21 Influenza, Quadrivalent, Spl it, Preservative Free, Intramuscular 03/17/2021,03/05/2020,04/25/2018,06/08,06/08/2016 Influenza, Trivalent, IM (MDV) 06/08/2016 Influenza, Unspecified 12/15/2022(Deferr ed: Patient Refused),10/27/2022(Deferred: Patient Refused),03/27/2022(Deferred: Patient Refused),03/27/2021(Deferred: Patient Refused),03/12/2003 MMR 07/15/2000,07/16/1997 Meningococcal MCV4P (Menactra) 10/15/2008 Pfizer SARS-CoV-2 Monovalent Vaccination (12+ Yrs) PURPLE 08/08/2020,07/18/2020 Td, adsorbed 08/19/2021 Tdap 10/15/2008 Surgical History Surgery Date Site/Laterality Comments ANKLE SURGERY 03/27/2015 - 03/26/2016 2010 WISDOM TOOTH EXTRACTION 03/27/2014 - 03/26/2015 LEG SURGERY Left 5 surgeries on left leg (CRPS) SPINAL CORD STIMULATOR IMPLANT 07/25/2016 - 08/24/2016 DRG Stimulator in back APPENDECTOMY 03/27/2005 - 03/26/2006 NERVE SURGERY SURAL NERVE GRAFT PERONEAL NERVE DECOMPRESSION SPINAL CORD STIMULATOR REMOVAL Nov 21, 2018 SPINAL CORD STIMULATOR IMPLANT CHOLECYSTECTOMY 02/02/22 Medical History Medical History Date Comments Arthralgia of left ankle Chronic pain syndrome Common peroneal neuropathy CRPS (complex regional pain syndrome) type I of lower limb History of migraine headaches GERD (gastroesophageal reflux disease) Smoker Delayed emergence from gener al anesthesia with general anesthesia, den ies reintubation Conjunctivitis Constipation Postoperative delirium had a MAC done: panic attack while coming out of anesthesia, causing re-sedation Extremity pain Leg pain Shoulder pain, left Buttock pain Leg pain Anxiety Arthritis Depression Headache Constipation due to opioid therapy 03/05/2020 Gallbladder attack 03/30/2020 Attention deficit hyperactiv ity disorder (ADHD) 04/26/2020 History of IBS 04/26/2020 Migraines Substance abuse (CMS/HCC) ([facility]) Autoimmune disease (CMS/[facility]) ([facility]) 2016 Family History Medical History Relation Name Comments Arthritis Father Peter Chronic Pain Father Peter Hearing loss Father Peter Anesthesia problems Mother Richar delayed emergence Anxiety disorder Mother Richar Chronic Pain Mother Richar Depression Mother Richar Memory loss Mother Richar Seizures Mother Richar Stroke Paternal Grandfather Danish Relation Name Status Comments Father Peter Alive Mother Richar Alive Paternal Grandfather Danish Social History Tobacco Use Types Packs/Day Years Used Date Smoking Tobacco: Some Days E-cigarettes Started: 2016 Passive Smoke Exposure: Current Smokeless Tobacco: Never Tobacco Cessation:Ready to Q uit: Not Asked; Counseling Given: Not Answered Comments:vapor cigarettes/does not smoke reg cigarettes Alcohol Use Standard Drinks/Week Comments Not Currently 1 (1 standard drink = 0.6 oz pur e alcohol) AUDIT-C Answer Date Recorded Q1: How often do you have a drink containing alc ohol? Monthly or less 11/02/2021 Q2: How many drinks containi ng alcohol do you have on a typical day when you are drinking? 1 or 2 11/02/2021 Q3: How often do you have si x or more drinks on one occasion? Never 11/02/2021 PHQ-2 Answer Date Recorded PHQ-2 Total Score (If total score is 3 or more points, staff should administer the PHQ-9) 0 12/26/2023 Personal Safety Answer Date Recorded Getting School Help Needed Not on file 03/27 Comments No Sex and Gender Information Value Date Recorded Sex Assigned at Female 06/25/2018 8:44 PM CDT Legal Sex Female 4:21 PM DIRECTOR OF CONTENT MARKETING Gender Identity Female 10/27/2023 9:19 AM CDT Sexual Orientation Straight 06/25/2018 8: 44 PM CDT Obstetrics History Last Filed Vital Signs Vital Sign Reading Time Taken Comments Blood Pressure 104/78 12/26/2023 4:13 PM CDT Pulse 102 12/26/2023 4:13 PM CDT Temperature 36.9 ??C (98.4 ??F) 11/02/2023 9:58 AM CD T Respiratory Rate 18 12/26/2023 4:13 PM CDT Oxygen Saturation 99% 12/26/2023 4:13 PM CDT Inhaled Oxygen Concentration - - Weight 79.4 kg (175 lb) 11/02/2023 9:58 AM CDT Height 170.2 cm (5' 7 ) 11/02/2023 9:58 AM CDT Body Mass Index 27.41 11/02/2023 9:58 AM CDT Plan of Treatment Health Maintenance Due Date Last Done Comments Pneumococcal vaccine <65 (1 of 2 - PCV) 2002 Varicella Vaccines (1 of 2 - 13+ 2-dose series) 2009 Cervical Cancer Screening 07/21/2021 07/21/2020 Regular Well Visit/Exam 18-64 10/28/2023 10/27/2022, 03/23/2022, 03/17/2021, Additional history exists Covid-19 Vaccine (3 - season) 2023 08/08/2020, 07/18/2020 Influenza Vaccine (#1) 2023 , 03/05/2020, 04/25/2018, Additional history exists Depression Screening 12/25/2024 12/26/2023, 12/26/2023, 11/02/2023, Additional history exists DTaP/Tdap/Td Vaccine (7 - Td or Tdap) 08/20/2031 08/19/2021, 10/15/2008, 11/18/1997, Additional history exists Hepatitis C Screening Completed 03/05/2020 HPV Vaccines Aged Out No longer eligi ble based on patient's age to complete this topic Goals Goal Patient Goal Type Associated Problems Recent Progress Patient-Stated? Author CCM Chronic Pain Care Plan Chronic Care Management Worsening( 10:10 AM DIRECTOR OF CONTENT MARKETING) No Merna Rubio RN Note: Problem: Chronic [...] on stairs Contact your local community or [facility] for information on exercise, fall prevention programs, or options for improving home safety. Medical Devices Implanted Type Area Annual Giving Officer Device Identifier Shelf Expiration Date Model / Serial / Lot [employer] [id number] Axium Slimtip 1mm 50cm 4 Electrode Lead Front Load Delivery 5mm - Sn/A - [id number] Implanted:Qty: 1 on 01/15/2018 by Melquiades Parada MD at [facility] Lead N/A: Back [employer] 09/14/2018 [id number] / N/A / External Pulse Generator Implanted:Qty: 1 on 01/15/2018 by Melquiades Parada MD at [facility] Other - see comments N/A: Back [employer] [id number] 08/08/2019 / [id number] / Description:External pulse g enerator, 2 port header Drg External Puse Generator 2 Port Header Implanted:Qty: 1 on 10/31/2018 by Melquiades Parada MD at [facility] Other - see comments N/A: Spine Lumbar [employer] [id number] 08/29/2020 7032 / [id number] / [employer] [id number] 50cm Lead Extension Torque Wrench Kit Neurostimulator - [id number] - [id number] Implanted:Qty: 1 on 10/31/2018 by Melquiades Parada MD at [facility] Other - see comments N/A: Abdomen [employer] 08/02/2020 [id number] / [id number] / Description:Lead extension k it [employer] [id number] 50cm Lead Extension Torque Wrench Kit Neurostimulator - [id number] - [id number] Implanted:Qty: 1 on 10/31/2018 by Melquiades Parada MD at [facility] Other - see comments N/A: Abdomen [employer] 08/02/2020 [id number] / [id number] / Description:Lead extension k it [employer] [id number] Axium Slimtip 1mm 90cm 4 Electrode Lead Front Load Delivery 5mm - [id number] Implanted:Qty: 1 on 10/31/2018 by Melquiades Parada MD at [facility] Spinal Cord Stimulator N/A: Spine Lumbar [employer] [id number] 11/24/2018 [id number] / / [id number] [employer] [id number] Axium Slimtip 1mm 90cm 4 Electrode Lead Front Load Delivery 5mm - [id number] Implanted:Qty: 1 on 10/31/2018 by Melquiades Parada MD at [facility] Spinal Cord Stimulator N/A: Spine Lumbar [employer] [id number] 11/24/2018 [id number] / / [id number] [employer] [id number] Axium Slimtip 1mm 90cm 4 Electrode Lead Front Load Delivery 5mm - [id number] Implanted:Qty: 1 on 10/31/2018 by Melquiades Parada MD at [facility] Spinal Cord Stimulator N/A: Spine Lumbar [employer] [id number] 11/24/2018 [id number] -90A / / [id number] Drg Stimulator Left: Back Description:Dorsal Ganglion Root 08/23/[address] [employer] [id number] Axium Slimtip 1mm 50cm 4 Electrode Lead Front Load Delivery 5mm - [id number] - [id number] Implanted:Qty: 1 on 04/04/2019 by Melquiades Parada MD at [facility] N/A: Epidural Space [employer] 01/16/2021 [id number] -50A / [id number] / Description:Left L3 [employer] [id number] Axium Slimtip 1mm 50cm 4 Electrode Lead Front Load Delivery 5mm - [id number] - [id number] Implanted:Qty: 1 on 04/04/2019 by Melquiades Parada MD at [facility] Left: Epidural Space [employer] 01/16/2021 [id number] -50A / [id number] / Description:Left L5 [employer] 3664 [employer] 4.95cmx6.09cm Implantable Thk1.34cm Generator 52gm Pulse - [id number] - [id number] Implanted:Qty: 1 on 04/04/2019 by Melquiades Parada MD at [facility] Right: Buttocks [employer] 12/09/2020 3664 / [id number] / [employer] [id number] Lead Kit Accessory - [id number] Implanted:Qty: 1 on 04/04/2019 by Melquiades Parada MD at [facility] [employer] 08/30/2020 [id number] / / [id number] Procedures Procedure Name Priority Date/Time Associated Diagnosis Comments EGD Routine 02/14/2024 10:01 AM DIRECTOR OF CONTENT MARKETING HM PAP SMEAR WITH HPV Routine 07/21/2020 HEPATITIS C ANTIBODY Routine 03/05/2020 3:39 PM DIRECTOR OF CONTENT MARKETING Preventative health care from Last 3 Months or Most Recently Relevant to Health Maintenance Results * EGD -[facility] (02/14/2024 10:01 AM DIRECTOR OF CONTENT MARKETING) Anatomical Region Laterality Modality Other Historical Provider GI PROCEDURE ORDERABLES F inal Result * HM PAP SMEAR WITH HPV (07/21/2020) Scribed Pap Smear w/HPV Normal Historical Provider HEALTH MAINTENANCE Final Result * Hepatitis C antibody (03/05/2020 3:39 PM DIRECTOR OF CONTENT MARKETING) Hep C Ab Nonreactive Nonreactive [facility] Comment: Interpretive Data Nonreactive: Antibodies to HCV not detected. Does NOT exclude the possibility of recent exposure to HCV. Equivocal: Equivocal for HCV antibodies. Supplemental molecular testing will be automatically performed to determine infection status in accordance with current CDC screening recommendations. ?? Reactive: Positive for HCV antibodies. ??This may represent current or past HCV infection. Supplemental molecular testing will be automatically performed to determine ??current infection status in accordance with current CDC screening recommendations. Interpretive data was last revised on 2019. Blood specimen (specimen) 03/05/2020 3:39 PM DIRECTOR OF CONTENT MARKETING 03/05/2020 6:01 PM DIRECTOR OF CONTENT MARKETING Joy Lara MD LAB MICROBIOLOGY - GENERAL RAYMOND DELONG Final Result [facility] [address] [place] Department [place] [address] from Last 3 Months or Most Recently Relevant to Health Maintenance Insurance [employer] Address: [facility] [id number] [place] [address] [employer] [place] [id number] Advance Directives For more information, please contact: [phone] * Full Code (Latest Code Status on File) Date Activated Date Inactivated Comments 05/29/2021 12:15 PM 06/02/2021 5:32 PM * Full Code Date Activated Date Inactivated Comments 07/30/2019 10:32 PM 08/02/2019 7:31 PM * Full Code Date Activated Date Inactivated Comments 11/22/2018 7:07 PM 11/27/2018 8:53 PM * Full Code Date Activated Date Inactivated Comments 04/24/2018 8:08 PM 04/25/2018 9:53 PM * Full Code Date Activated Date Inactivated Comments 05/07/2017 11:42 PM 05/11/2017 5:30 PM Care Teams Social Worker School Relationship Specialty Start Date End Date Berenice Sher NP [address] [place] [address] PCP - General Family Medicine 10/07/22 Pete Rivera MD [address] [facility] [address] [place] [address] Referring Physician Pain Management 06/02/21 Griffin Eller Harjit Mutual Fund Analyst 10/27/22 Sadie Ventura Psychiatry 12/15/22
--- OUTSIDE RECORDS SUMMARY | 2024-04-23 10:39 | XMS_ITS | Referral Summary ---
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 Primary Care at [address] [address] Provider, MD Mary Grace from Last 3 Months Allergies Active Allergy Reactions Criticality Noted Date [...] nausea or vomiting 30 tablet 3 Active I28-hatmbfetouahh drofolate-B6 1,000mcg-680mcg DFE-1.5 mg tablet,chewable 4 Active FLUoxetine 10 mg capsule 2 tablet/capsule (20 mg total) 4 Active FLUoxetine (PROzac) 40 mg capsule 4 Active Concerta 36 mg CR tablet 4 Active methylphenidate ER (CONCERTA) 18 mg CR tablet Take 1 tablet (18 mg total) by mouth all around presser before breakfast Active sodium chloride 1,000 mg tablet TAKE 1 TABLET BY MOUTH THREE TIMES DAILY WITH MEALS Active meloxicam (MOBIC) 15 mg tablet Take 1 tablet (15 mg total) by mouth daily 60 tablet 1 4 Active Active Problems Problem Noted Date Diagnosed Date Gallbladder disease 03/23/2022 Overview (03/23/2022): 03/17: S/P removal. Assessment & Plan (03/23/2022 1:50 PM PROVIDER NETWORK MANAGER): S/P gallbladder removal. Symptoms improved. SVT (supraventricular tachycardia) 03/23/2022 Overview (03/23/2022): 03/17: Given metoprolol through cardiology - she will return in 1 mo. Assessment & Plan (03/23/2022 1:42 PM PROVIDER NETWORK MANAGER): Starting metoprolol POTS (postural orthostatic tachycardia syndrome) 03/23/2022 Overview (03/23/2022): 03/17: just started on metoprolol 25 mg daily (has not started yet) - not fainting but getting dizzy and vision goes dark upon standing. Happens all the time with position changes. Dr. Eller is cards. Assessment & Plan (03/23/2022 1:43 PM PROVIDER NETWORK MANAGER): Working with cardiology Starting metoprolol Consider compression Vasovagal syncope 11/02/2021 Observed seizure-like activity 09/07/2021 Assessment & Plan (03/22/2022 12:39 PM PROVIDER NETWORK MANAGER): Follows with neuro Assessment & Plan (09/07/2021 [...] Advil Assessment & Plan (03/23/2022 1:50 PM PROVIDER NETWORK MANAGER): No longer on omeprazole Stable Assessment & [...] SI. Assessment & Plan (03/23/2022 1:51 PM PROVIDER NETWORK MANAGER): Consider adding straterra in a few weeks Will discuss with Dr. Lara Assessment & Plan (04/26/2020 4:34 PM PROVIDER NETWORK MANAGER): Wondering if MD can prescribe ADD meds. Prior dgx of ADD, was prescribed stimulants prior -Have not received prior records as yet -Discussed with pt more than happy to resume prescription once documentation regarding prior dgx and treatment obtained. -At high risk in s/o chronic half-way opiate therapy for complex regional pain syndrome, and comorbid anxiety, depression and prior hx of SA/overdose. Allergy to tree nuts 03/31/2020 Assessment & Plan (03/22/2022 12:41 PM PROVIDER NETWORK MANAGER): Carries EpiPen Assessment & Plan (03/31/2020 3:35 PM PROVIDER NETWORK MANAGER): She had reaction last week from eating popcorn with cashews in it. Took her epi pen an symptoms improved within minutes. Refilled epi pen. To be more careful with diet to avoid accidental injection of allergen. Adult general medical exam 03/05/2020 Assessment & Plan (03/23/2022 1:52 PM PROVIDER NETWORK MANAGER): The patient should continue to focus on diet and exercise as a way to maintain and improve health. Will review labs performed today and contact the patient with the results. Assessment & Plan (03/05/2020 6:29 PM PROVIDER NETWORK MANAGER): -Immunization status: unknown status, parent/patient to bring shot records influenza vaccine today -cervical cancer screening: Recommended; Pt plans to have pap completed by [facility] when she gets her IUD replaced; will [...] 03/05/2020 Assessment & Plan (03/22/2022 12:39 PM PROVIDER NETWORK MANAGER): Quit entirely Assessment & Plan (03/05/2020 7:14 PM PROVIDER NETWORK MANAGER): Active smoker, 3 year hx of ecigs and vaping -Counseled, not ready to quit at this time. Discussed nicotine replacement and smoking cessation medications Anxiety 01/06/2018 Overview (10/01/2021): Has not been taking her venlafaxine (1 mo) Has a visit with her psychiatrist later this month Assessment & Plan (03/23/2022 1:51 PM PROVIDER NETWORK MANAGER): Restarting venlafaxine Assessment & Plan (10/01/2021 11:59 AM CDT): Restart venlafaxine at 75 mg Assessment & Plan (04/26/2020 4:44 PM PROVIDER NETWORK MANAGER): Prior appt (03/05/20): Pt requesting xanax, missed her psychiatry appt which was scheduled for earlier this morning. Told pt ok to prescribe 3-4 pills to bridge her to appt, but without documentation of prior script will not prescribe any further. 4 day supply with no refills of xanax sent to pharmacy -on venlafaxine, buspar Assessment & Plan (03/05/2020 6:18 PM PROVIDER NETWORK MANAGER): Pt reports her anxiety has become much [...] S/P insertion of spinal cord stimulator 11/10/19 Overview (04/12/2019): Re - implanted DRSG - 04/04/2019 Assessment & Plan (03/22/2022 12:39 PM PROVIDER NETWORK MANAGER): Stable Insomnia 05/21/2016 Assessment & Plan (03/23/2022 1:50 PM PROVIDER NETWORK MANAGER): Improving Major depression 07/12/2012 Overview (04/20/2022): Severe [...] Wellbutrin is not helping with concentration. Discussed Strattpatsy and pt agreeable. Will wean off Wellbutrin and then start the Strattera. Psychiatry referral also placed. Pt denies SI. Assessment & Plan (03/23/2022 1:39 PM PROVIDER NETWORK MANAGER): Wants to restart effexor - start with 37.5mg for 2 weeks and if tolerating then can increase to 75 mg Call once you increase and we can send out a higher dose. Assessment & Plan (10/01/2021 10:32 AM CDT): Should be on antidepressant Please restart Effexor at 75 mg per day Assessment & Plan (04/26/2020 4:37 PM PROVIDER NETWORK MANAGER): Severe and recurrent, active Patient is not [...] qhs Assessment & Plan (03/05/2020 6:14 PM PROVIDER NETWORK MANAGER): Severe and recurrent, active PHQ Screening (03/05/2020) [...] pump. Assessment & Plan (03/23/2022 1:50 PM PROVIDER NETWORK MANAGER): No longer on narcotics Using Medical MJ - as needed Has spinal cord stimulator Resolved Problems Problem Noted Date Diagnosed Date Resolved Date Chronic pain syndrome 01/07/20212020 History of IBS 04/26/2020 03/17/2021 Assessment & Plan (04/26/2020 4:39 PM PROVIDER NETWORK MANAGER): Prior hx of IBS in s/o active anxiety and depression. 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 -trial bentyl -trial elimination diet of foods known to worsen IBS, will message pt handout Right upper quadrant pain 03/31/2020 Assessment & Plan (04/26/2020 4:37 PM PROVIDER NETWORK MANAGER): Ongoing intermittent RUQ pain, no relation to [...] symptoms. Assessment & Plan (03/31/2020 3:33 PM PROVIDER NETWORK MANAGER): Abdominal pain across the upper abdomen but [...] 03/17/2021 Assessment & Plan (03/31/2020 3:34 PM PROVIDER NETWORK MANAGER): No pain, just dark urine. May be dehydrated. Increase fluids. Check UA to rule out infection. Class 1 obesity due to exces s calories with serious comorbidity and body mass index (BMI) of 32.0 to 32.9 in adult 03/31/2020 03/23/2022 Assessment & Plan (03/22/2022 12:40 PM PROVIDER NETWORK MANAGER): BMI Follow-up includes: nutrition counseling and exercise counseling. Assessment & Plan (10/01/2021 12:01 PM CDT): BMI Follow-up includes: nutrition counseling and exercise counseling. Assessment & Plan (03/31/2020 3:34 PM PROVIDER NETWORK MANAGER): BMI Follow-up includes: nutrition counseling and exercise counseling. Constipation due to opioid therapy 03/05/2020 03/23/2022 Assessment & Plan (03/22/2022 12:40 PM PROVIDER NETWORK MANAGER): No longer on narcotics Assessment & Plan (04/26/2020 4:35 PM PROVIDER NETWORK MANAGER): Constipation secondary to high dose opioid use. She reports constipation is better since she started Linzess. Is taking 145mcg daily and has BM every other day. -continue linzess -advise pt to stay hydrated Assessment & Plan (03/31/2020 3:34 PM PROVIDER NETWORK MANAGER): Constipation secondary to high dose opioid use. She reports constipation is better since she started Linzess. Is taking 145mcg daily and has BM every other day. Last BM was yesterday. Does not feel that her current pain is constipation related. Encouraged her to stay well hydrated. Assessment & Plan (03/05/2020 7:14 PM PROVIDER NETWORK MANAGER): Continue senna -trial linzess Lumbago 10/18/2019 04/26/2020 [...] visit mid February 2021 Urine drug screen [facility] 06/21/16 - consistent??for?prescribing. Urine drug screen [facility] 02/06/17 - consistent??for??prescribed oxycodone Urine drug screen [facility] 12/14/17 - consistent??for?prescribed oxycodone?? Urine drug screen [facility] 05/14/18 - consistent??for?prescribed oxycodone Urine drug screen [facility] 04/26/19 -??consistent for prescribed ??oxycodone, in addition cannabinoids and hydrocodone were detected??(hydrocodone later determined to be lab error, result removed) Urine drug screen [facility]??05/15/19??-??consistent with prescribed oxycodone Urine drug screen [facility]??11/12/19??-??consistent with prescribed oxycodone Urine drug screen [facility]??08/25/20??-??consistent with prescribed analgesics, positive for amphetamines - addendum - pt denies any use, knowledge of amphetamines. Reviewed with chemistry lab instructor - significant levels of amphetamine identified comparable to that seen in people taking prescription amphetamine. Urine drug screen [facility] 10/28/20 - consistent with prescribed oxycodone, morphine Urine drug screen [facility] 02/10/21 - results pending Neuralgia of left peroneal nerve 01/21/2016 03/22/2022 Headache(784.0) 01/18/2016 04/26/2020 Common peroneal neuropathy 01/08/2016 1 05/23/2021 Alcohol abuse 03/04/2013 12/04/2018 Anxiety disorder due to medical condition 03/04/2013 12/04/2018 School avoidance 03/04/2013 12/04/2018 Disturbance in sleep behavior 05/23/2011 03/17/2021 Overview (09/15/2020): Complex regional pain syndro me type 2 of left lower extremity 03/22/2022 Overview (09/07/2021): Diagnosed in 2016, found to have peroneal nerve impingement S/p [...] Date: 05/29/2021 Discharge Date: 06/02/2021 Admission Location: [facility] ?? From admission HPI: Chandra Pengle??is a 25 y.o.??female??with a hx of complex regional pain syndrome s/p??multiple L leg surgeries and??spine stimulators, depression, and anxiety??who presented as a transfer from [facility] ED for management of CPRS [...] called her pain physician (Dr. Rivera in [place]) who recommended she go to the hospital for further pain management. She was a prior patient of Dr. Parada here at [facility] but now travels to [place] to see Dr. Rivera who is a CPRS specialist.??Of note, patient reports being treated with ketamine infusions, lidocaine infusions, and dilaudid [facility] for prior flares. At [facility] ED, she was hypertensive to 156/100 and tachycardic to 103. Her CMP/CBC was unremarkable and COVID-19 was negative. She was given ~12mg IV dilaudid (per chart review) with only mild improvement in her pain. She was transferred to [facility] given access to inpatient pain management team. Upon arrival to [facility], patient's vitals are within normal limits (HR 87, BP 111/68). She denies abd pain, changes in appetite, visual changes, recent trauma or falls, nausea, vomiting, diarrhea, constipation, fevers, chills. ?? Hospital Course: Chandra Mcdonald??is a 25 y.o.??female??with hx of complex regional pain syndrome s/p??multiple L leg surgeries and??spine stimulators, depression, and anxiety??who presented as a transfer from [facility] ED for management of CPRS flare. ?? Complex regional pain syndrome Began with LLE, s/p 5 leg surgeries and multiple spinal stimulators (latest??placed 03/22/21). Pain consistent with prior flares. Treated with ketamine infusion, lidocaine infusion, and dPCA in past. Follows with Dr. Rivera at [place], prior pt of Dr. Parada at [facility]. Started on dilaudid [facility] on admission and continued until transitioned to home hydromorphone on day prior to discharge. Tried lidocaine infusion with no improvement in patient's pain. Pain management service was consulted on admission and was providing recs and following throughout stay. Pain fellow discussed patient's plan with patient's pain team at [place]. On discharge, patient given prescription for hydromorphone 8mg five times daily, Lyrica 100mg three times daily, and tizanidine 2mg three times daily as needed until 06/30/2021. Patient will follow-up with Dr. Rivera on 06/30/21 at [place]. Admission to [facility] on 06/27/21 On admission, her regiment [...] infusion (40 mg/h) for escalated pain control. SUITs (Addiction Medicine) was consulted to evaluate for [...] headaches. Assessment & Plan (04/26/2020 4:29 PM PROVIDER NETWORK MANAGER): Diagnosed in 2016, found to have peroneal nerve impingement S/p [...] Parada Assessment & Plan (03/05/2020 7:07 PM PROVIDER NETWORK MANAGER): Diagnosed in 2016, found to have peroneal nerve impingement S/p [...] Pain control: per pain service/anesthesia consult team. [facility] and lidocaine drip stopped today, oxycodone added [...] ago s/p explantation - Pain control: Dilaudid [facility]- adjustments per pain service/anesthesia consult team. Monitor neuro S/p lidocaine drip. HERRERA drains removed 11/25. . 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 Monitor [...] ago s/p explantation - Pain control: Dilaudid [facility]- adjustments per pain service/anesthesia consult team. Monitor neuro status - Adjunctive therapy: Gabapentin, pregablin and tizanidine - Bowel regimen- Senna- docusate - Immunizations Name Administration Dates Next Due DTaP [...] PURPLE 08/08/2020,07/18/2020 Td, adsorbed 08/19/2021 Tdap 10/15/2008 Social History Tobacco Use Types Packs/Day [...] PM CDT Legal Sex Female 4:21 PM PROVIDER NETWORK MANAGER Gender Identity Female 10/27/2023 9:19 AM CDT Sexual Orientation Straight 06/25/2018 8: 44 PM CDT Last Filed Vital Signs Vital Sign [...] 11/02/2023 9:58 AM CDT Plan of Treatment Not on file Goals Goal Patient Goal Type Associated Problems Recent Progress Patient-Stated? Author CCM Chronic Pain Care Plan Chronic Care Management Worsening( 10:10 AM PROVIDER NETWORK MANAGER) No Merna Rubio RN Note: Problem: Chronic [...] home safety. Medical Devices Implanted Type Area Facilities Engineer Device Identifier Shelf Expiration Date Model / Serial / Lot [employer] [id number] Axium Slimtip 1mm 50cm 4 Electrode Lead Front Load Delivery 5mm - Sn/A - [id number] Implanted:Qty: 1 on 01/15/2018 by Melquiades Parada MD at [facility] Lead N/A: Back [employer] 09/14/2018 [id number] / N/A / External Pulse Generator Implanted:Qty: 1 on 01/15/2018 by Melquiades Parada MD at [facility] Other - see comments N/A: Back [employer] [id number] 08/08/2019 / [id number] / Description:External pulse g enerator, 2 port header Drg External Puse Generator 2 Port Header Implanted:Qty: 1 on 10/31/2018 by Melquiades Parada MD at [facility] Other - see comments N/A: Spine Lumbar [employer] [id number] 08/29/2020 7032 / [id number] / [employer] [id number] 50cm Lead Extension Torque Wrench Kit Neurostimulator - [id number] - [id number] Implanted:Qty: 1 on 10/31/2018 by Melquiades Parada MD at [facility] Other - see comments N/A: Abdomen [employer] 08/02/2020 [id number] / [id number] / Description:Lead extension k it [employer] [id number] 50cm Lead Extension Torque Wrench Kit Neurostimulator - [id number] - [id number] Implanted:Qty: 1 on 10/31/2018 by Melquiades Parada MD at [facility] Other - see comments N/A: Abdomen [employer] 08/02/2020 [id number] / [id number] / Description:Lead extension k it [employer] [id number] Axium Slimtip 1mm 90cm 4 Electrode Lead Front Load Delivery 5mm - [id number] Implanted:Qty: 1 on 10/31/2018 by Melquiades Parada MD at [facility] Spinal Cord Stimulator N/A: Spine Lumbar [employer] [id number] 11/24/2018 [id number] / / [id number] [employer] [id number] Axium Slimtip 1mm 90cm 4 Electrode Lead Front Load Delivery 5mm - [id number] Implanted:Qty: 1 on 10/31/2018 by Melquiades Parada MD at [facility] Spinal Cord Stimulator N/A: Spine Lumbar [employer] [id number] 11/24/2018 [id number] / / [id number] [employer] [id number] Axium Slimtip 1mm 90cm 4 Electrode Lead Front Load Delivery 5mm - [id number] Implanted:Qty: 1 on 10/31/2018 by Melquiades Parada MD at [facility] Spinal Cord Stimulator N/A: Spine Lumbar [employer] [id number] 11/24/2018 [id number] -90A / / [id number] Drg Stimulator Left: Back Description:Dorsal Ganglion Root 08/23/[address] [employer] [id number] Axium Slimtip 1mm 50cm 4 Electrode Lead Front Load Delivery 5mm - [id number] - [id number] Implanted:Qty: 1 on 04/04/2019 by Melquiades Parada MD at [facility] N/A: Epidural Space [employer] 01/16/2021 [id number] / [id number] / Description:Left L3 [employer] [id number] Axium Slimtip 1mm 50cm 4 Electrode Lead Front Load Delivery 5mm - [id number] - [id number] Implanted:Qty: 1 on 04/04/2019 by Melquiades Parada MD at [facility] Left: Epidural Space [employer] 01/16/2021 [id number] / [id number] / Description:Left L5 [employer] 3664 [employer]claim 4.95cmx6.09cm Implantable Thk1.34cm Generator 52gm Pulse - [id number] - [id number] Implanted:Qty: 1 on 04/04/2019 by Melquiades Parada MD at [facility] Right: Buttocks [employer] 12/09/2020 3664 / [id number] / [employer] [id number] Lead Kit Accessory - [id number] Implanted:Qty: 1 on 04/04/2019 by Melquiades Parada MD at [facility] [employer] 08/30/2020 [id number] / / [id number] Procedures Procedure Name Priority Date/Time Associated Diagnosis Comments EGD Routine 02/14/2024 10:01 AM PROVIDER NETWORK MANAGER HM PAP SMEAR WITH HPV Routine 07/21/2020 HEPATITIS C ANTIBODY Routine 03/05/2020 3:39 PM PROVIDER NETWORK MANAGER Preventative health care from Last 3 Months or Most Recently Relevant to Health Maintenance Results * EGD -[facility] (02/14/2024 10:01 AM PROVIDER NETWORK MANAGER) Anatomical Region Laterality Modality Other Historical Provider GI PROCEDURE ORDERABLES F inal Result * HM PAP SMEAR WITH HPV (07/21/2020) Scribed Pap Smear w/HPV Normal Historical Provider HEALTH MAINTENANCE Final Result * Hepatitis C antibody (03/05/2020 3:39 PM PROVIDER NETWORK MANAGER) Hep C Ab Nonreactive Nonreactive [facility] Comment: Interpretive Data Nonreactive: Antibodies to [...] 2019. Blood specimen (specimen) 03/05/2020 3:39 PM PROVIDER NETWORK MANAGER 03/05/2020 6:01 PM PROVIDER NETWORK MANAGER Joy Lara MD LAB MICROBIOLOGY - GENERAL RAYMOND DELONG Final Result [facility] [address] [place] [address] from Last 3 Months or Most Recently Relevant to Health Maintenance Insurance [employer] [employer] Address: [facility] [id number] [place] [address] [facility] CHOICE PLUS [facility] CHOICE PLUS Advance Directives For more information, please contact: [phone] * Full Code (Latest Code Status on [...] 11:42 PM 05/11/2017 5:30 PM Care Teams Hydroelectric Plant Structural Engineer Relationship Specialty Start Date End Date Berenice Sher NP [address] [facility] [address] [place] [address] PCP - General Family Medicine 10/07/22 Pete Rivera MD [address] [facility] [address] [place] [address] Referring Physician Pain Management 06/02/21 Griffin SWANSON Casing Blower 10/27/22 Sadie Ventura Psychiatry 12/15/22
[2024-04-23 10:52] LABS: Alanine Aminotransferase 14 U/L (6-35); Albumin Level 4.7 g/dL (3.5-5.1); Alkaline Phosphatase 43 U/L (38-126); Anion Gap 12 mmol/L (4-12); Aspartate Amino Transferase 21 U/L (14-36); Bilirubin,Total 0.5 mg/dL (0.2-1.3); Blood Urea Nitrogen 14 mg/dL (7-17); Calcium 9.2 mg/dL (8.4-10.2); Carbon Dioxide 26 mmol/L (22-30); Chloride 100 mmol/L (98-107); Estimated Glomerular Filt Rate > 60; Glucose 85 mg/dL (65-110); Sodium 138 mmol/L (137-145)
== END 2024-04-23 09:56 | disposition home or self-care (01) ==
LOC: ANHLAB 09:56
PROVIDERS: PCP Nurse Practitioner Family; Visit Provider Nurse Practitioner
DX: R10.11 Right upper quadrant pain (principal)
CPT/HCPCS: 36415; 80053; 85027